=== PATIENT | female | born 1935 | race Caucasian/White ===

== ENCOUNTER → 2016-04-13 | Outpatient (CLI) | payer OTHER ==
[~2016-04-13] MED LIST: ADVIN25/60 INH; ADVIN25050 INH; ALBUAER2 INH; ALLO100T PO; ASPCH81 PO; ASPI-435 PO; BENZ100C18 PO; CALC0.2510 PO; CALC500C70 PO; DOCU100C31 PO; DOXY-300 PO; FRS/40 PO; IPRASOL4 INH; LEVO88TA PO; LSX80 PO; METO25TA56 PO; NTRGSL/4 UT; NYSS/ MT; ONDA4TAB10 SL; PANT40TA PO; POTA20TA16 PO; PRD20 PO; PRED10TA PO; SENN-65 PO; SPIR25TA PO; SPIR25TA89 PO; TRAM-10 PO; VNTHFA/IN INH; WARF-283 PO; WARF-286 PO; WARF4TAB PO
[2016-04-13 12:56] LABS: PROTHROMBIN TIME (PATIENT) 42.4 SECONDS (9.0-12.0)
[2016-04-13 12:59] LABS: INR 3.8 (0.9-1.1)
== END | disposition home or self-care (01) ==
LOC: C.LABOAKS 12:26
PROVIDERS: ATTEND Internal Medicine Critical Care Medicine
DX: I48.2 Chronic atrial fibrillation (principal); Z51.81 Encounter for therapeutic drug level monitoring; Z79.01 Long term (current) use of anticoagulants

== ENCOUNTER → 2016-04-27 | Outpatient (CLI) | payer OTHER ==
[2016-04-27 12:35] LABS: PROTHROMBIN TIME (PATIENT) 58.4 SECONDS (9.0-12.0)
[2016-04-27 12:37] LABS: INR 5.1 (0.9-1.1)
== END | disposition home or self-care (01) ==
LOC: C.LABOAKS 11:05
PROVIDERS: ATTEND Internal Medicine Critical Care Medicine
DX: I48.2 Chronic atrial fibrillation (principal); Z51.81 Encounter for therapeutic drug level monitoring; Z79.01 Long term (current) use of anticoagulants

== ENCOUNTER → 2016-05-11 | Outpatient (CLI) | payer OTHER ==
[2016-05-11 12:47] LABS: INR 3.5 (0.9-1.1); PROTHROMBIN TIME (PATIENT) 39.5 SECONDS (9.0-12.0)
== END | disposition home or self-care (01) ==
LOC: C.LABOAKS 14:04
PROVIDERS: ATTEND Internal Medicine Critical Care Medicine
DX: I48.2 Chronic atrial fibrillation (principal); Z51.81 Encounter for therapeutic drug level monitoring; Z79.01 Long term (current) use of anticoagulants

== ENCOUNTER → 2016-05-18 | Outpatient (CLI) | payer OTHER ==
[2016-05-18 12:35] LABS: BLOOD UREA NITROGEN 36 mg/dl (7-18); BUN/CREATININE RATIO 24.2 (10-20); CARBON DIOXIDE 31 mmol/L (21-32); CHLORIDE 102 mmol/L (98-107); GLUCOSE 91 mg/dl (70-99); SODIUM 143 mmol/L (136-145)
== END | disposition home or self-care (01) ==
LOC: C.LABOAKS 11:52
PROVIDERS: ATTEND Specialist
DX: N18.3 Chronic kidney disease, stage 3 (moderate) (principal); I51.9 Heart disease, unspecified; I50.9 Heart failure, unspecified

== ENCOUNTER → 2016-05-22 | Outpatient (CLI) | payer OTHER ==
[2016-05-22 12:40] LABS: INFLUENZA A PCR Neg for Influ A (NEG); INFLUENZA B PCR Neg for Influ B (NEG)
== END | disposition home or self-care (01) ==
LOC: C.LAB 07:45
PROVIDERS: ATTEND Family Medicine
DX: R50.9 Fever, unspecified (principal); R52 Pain, unspecified

== ENCOUNTER → 2016-05-25 | Outpatient (CLI) | payer OTHER ==
[2016-05-25 09:10] LABS: INR 2.9 (0.9-1.1); PROTHROMBIN TIME (PATIENT) 32.2 SECONDS (9.0-12.0)
== END | disposition home or self-care (01) ==
LOC: C.LABOAKS 08:52
PROVIDERS: ATTEND Internal Medicine Critical Care Medicine
DX: I48.2 Chronic atrial fibrillation (principal); Z51.81 Encounter for therapeutic drug level monitoring; Z79.01 Long term (current) use of anticoagulants

== ENCOUNTER → 2016-06-08 | Outpatient (CLI) | payer OTHER ==
[2016-06-08 12:30] LABS: INR 1.9 (0.9-1.1); PROTHROMBIN TIME (PATIENT) 20.6 SECONDS (9.0-12.0)
== END | disposition home or self-care (01) ==
LOC: C.LABOAKS 15:17
PROVIDERS: ATTEND Specialist
DX: I48.91 Unspecified atrial fibrillation (principal)

== ENCOUNTER → 2016-06-24 | Outpatient (CLI) | payer OTHER ==
[2016-06-24 13:38] LABS: BLOOD UREA NITROGEN 32 mg/dl (7-18); BUN/CREATININE RATIO 19.8 (10-20); CALCIUM 8.8 mg/dl (8.5-10.1); CARBON DIOXIDE 32 mmol/L (21-32); CHLORIDE 104 mmol/L (98-107); GLUCOSE 90 mg/dl (70-99); POTASSIUM 3.9 mmol/L (3.5-5.1); SODIUM 143 mmol/L (136-145)
[2016-06-24 13:47] LABS: PROTHROMBIN TIME (PATIENT) 43.5 SECONDS (9.0-12.0)
[2016-06-24 13:49] LABS: INR 3.8 (0.9-1.1)
== END | disposition home or self-care (01) ==
LOC: C.LABOAKS 08:45
PROVIDERS: ATTEND Physician Assistant
DX: I50.9 Heart failure, unspecified (principal)

== ENCOUNTER → 2016-07-06 | Outpatient (CLI) | payer OTHER ==
[2016-07-06 12:36] LABS: INR 3.4 (0.9-1.1); PROTHROMBIN TIME (PATIENT) 38.3 SECONDS (9.0-12.0)
--- NOTE | 2016-07-07 12:12 | CODING QUERY NO DIAGNOSIS ---
TREATMENT RENDERED WITHOUT A DIAGNOSIS 33 To promote full compliance with coding requirements relating to patient care, physician participation is requested in all cases of institutional asset manager uncertainty. Please assist us with providing a diagnosis/symptom for the test(s) below: A diagnosis/symptom was not documented on your Order. A valid diagnosis/symptom is required to bill all insurances. Please remember that we are unable to code a diagnosis of rule out, probable, possible, questionable, or suspected. DOS 07/06/16 Tests that require a diagnosis: * PT/INR DIAGNOSIS: Dr. Fernando, I did receive your letter back with your response, it was a PT/INR, can you add a diagnosis Thank you Provider Signature: Date: Thank you Zeina Cowart [facility] Information Management Once completed, please kindly fax back to [phone] For questions please call [phone]
== END ==
LOC: C.LABOAKS 15:18
PROVIDERS: ATTEND Family Medicine
DX: I48.91 Unspecified atrial fibrillation (principal)

== ENCOUNTER 2016-07-08 12:53 | Inpatient (IN) | payer OTHER ==
[~2016-07-08] VITALS: Ht 165.1 cm; Wt 83.6 kg
[~2016-07-08 12:53] MED LIST changes: -ADVIN25/60 INH; -ALLO100T PO; -ASPI-435 PO; -BENZ100C18 PO; -CALC0.2510 PO; -CALC500C70 PO; -DOCU100C31 PO; -DOXY-300 PO; -IPRASOL4 INH; -LEVO88TA PO; -LSX80 PO; -METO25TA56 PO; -NTRGSL/4 UT; -PANT40TA PO; -POTA20TA16 PO; -PRD20 PO; -PRED10TA PO; -SENN-65 PO; -SPIR25TA PO; -SPIR25TA89 PO; -TRAM-10 PO; -VNTHFA/IN INH; -WARF-283 PO; -WARF-286 PO
--- NOTE | 2016-07-08 13:47 | DIAGNOSTIC IMAGING REPORT ---
CHEST ONE VIEW PORTABLE CLINICAL HISTORY: EVALUATE RESPIRATORY DISTRESS.DYSPNEA COMPARISON STUDY: 02/10/2016 FINDINGS: The heart is mildly enlarged. There is a left subclavian dual-chamber central venous pacemaker present. There is no failure. There is no lobar consolidation. There is mild chronic basilar interstitial thickening.[ IMPRESSION: No active disease in the chest. Electronically signed by: Joshua Devi M.D. 07/08/2016 1:45 PM Dictated Date/Time: 07/08/2016 1:45 PM
[2016-07-08 14:03] LABS: BASO % 0.5 %; BASO ABS # 0.03 K/uL (0-0.2); COMPLETE YES; EOS % 3.5 %; HEMATOCRIT 41.6 % (37-47); IG% 0.3 %; LYMPH % 16.6 %; MEAN CORPUSCULAR HEMOGLOBIN 26.9 pg (25-34); MEAN PLATELET VOLUME 10.1 fL (7.4-10.4); NEUT % 70.1 %; PLATELET COUNT 215 K/uL (130-400); RED BLOOD COUNT 4.95 M/uL (4.2-5.4); WHITE BLOOD COUNT 6.63 K/uL (4.8-10.8)
[2016-07-08 14:10] LABS: POINT OF CARE TROPONIN I 0.01 ng/ml (0-0.045)
[2016-07-08 14:33] LABS: BUN/CREATININE RATIO 19.7 (10-20); CALCIUM 9.9 mg/dl (8.5-10.1); CREATININE 1.5 mg/dl (0.60-1.20); POTASSIUM 3.7 mmol/L (3.5-5.1)
[2016-07-08 14:37] LABS: ALB/GLOB RATIO 1.1 (0.9-2); CKMB/CK RATIO 2.3 (0-3.0)
[2016-07-08 14:56] LABS: URINE APPEARANCE CLEAR (CLEAR); URINE BILIRUBIN NEG (NEG); URINE COLOR YELLOW; URINE NITRITE NEG (NEG); URINE PH 7.5 (4.5-7.5); URINE SPECIFIC GRAVITY 1.007 (1.000-1.030); UROBILINOGEN NEG (NEG)
[2016-07-08 14:59] LABS: MANUAL MICROSCOPIC REQUIRED? NO; REVIEW REQ? NO
[2016-07-08 15:02] LABS: INR 2.3 (0.9-1.1); PARTIAL THROMBOPLASTIN RATIO 1.3; PROTHROMBIN TIME (PATIENT) 25.9 SECONDS (9.0-12.0)
[2016-07-08] MEDS ORDERED: ACETAMINOPHEN 325 MG TAB PO PRN (15:30)
[2016-07-08] MEDS ORDERED: ONDANSETRON INJ 2 MG/ML 2 ML VIAL IV PRN (15:30)
[2016-07-08] MEDS ORDERED: NITROGLYCERIN 0.4 MG SL PER TAB CHARGE SL PRN (15:30)
[2016-07-08] MEDS ORDERED: METHYLPREDNISOLONE IV 125 MG in SYRINGE 0 ML IV ONE (15:30)
[2016-07-08] MEDS ORDERED: ALBUT/IPRATROP 3MG/0.5MG NEB 3 ML VIAL ONE (15:36)
[2016-07-08] MEDS ORDERED: METHYLPREDNISOLONE 125 MG VIAL ONE (15:36)
[2016-07-08] MEDS ORDERED: SPIR25TA PO (15:53)
--- NOTE | 2016-07-08 15:55 | EMERGENCY ROOM VISIT NOTE ---
History Report prepared by Rufina: Joann Sabillon Under the Supervision of: Dr. Steven Stearns M.D. First contact with patient: 13:25 Chief Complaint: SHORTNESS OF BREATH Stated Complaint: CHEST PAIN Nursing Triage Summary: Triage Note: Pt reports shortness of breath since this am. pt reports hx of copd. pt denies any pain at this time. History of Present Illness The patient is an 81 year old female who presents to the Emergency Room with complaints of persistent shortness of breath that began prior to arrival. She additionally notes that with her shortness of breath she developed chest pain. The patient states that now she is feeling fatigued and weak. She states that her episode lasted a half hour. The patient states that she tried walking outside to get air, but denies any relief of her symptoms. She states that she wears oxygen all the time. The patient notes a recent cough and increased leg edema. She states that she has used her nebulizers at home. The patient states that she had nausea and vomiting yesterday. Pt denies LOC, headache, fevers, chills, diaphoresis, visual changes, neck pain, abdominal pain, back pain, melena, hematochezia, urinary symptoms, numbness, weakness, lymphadenopathy, rash, or other complaints. Source of History: patient Onset: prior to arrival Position: other (global) Quality: other (shortness of breath) Timing: other (persistent) Associated Symptoms: + chest pain, + cough, + nausea, + vomiting Note: Associated Symptoms: leg edema Review of Systems See HPI for pertinent positives and negatives. A total of ten systems were reviewed and were otherwise negative. Past Medical & Surgical Medical Problems: (1) Chest pain (2) Chronic a-fib (3) Chronic osteoarthritis (4) CKD (chronic kidney disease) stage 3, GFR 30-59 ml/min (5) Dyslipidemia (6) GERD (gastroesophageal reflux disease) (7) Heart failure (8) HTN (hypertension) (9) Hypothyroidism (10) Moderate COPD (chronic obstructive pulmonary disease) (11) Shortness of breath Surgical Problems: (1) History of appendectomy (2) History of cholecystectomy (3) History of hysterectomy (4) History of lumbar laminectomy for spinal cord decompression (5) History of tonsillectomy (6) History of total right hip arthroplasty (7) S/P placement of cardiac pacemaker Family History No pertinent family history Social History Smoking Status: Former Smoker Alcohol Use: none Drug Use: none Marital Status: Housing Status: lives alone Occupation Status: retired Current/Historical Medications Scheduled Allopurinol (Zyloprim), 50 MG PO DAILY Aspirin (Aspirin 81), 1 TAB PO DAILY Calcitriol (Rocaltrol Cap), 0.25 MCG PO DAILY Calcium/Vitamin D (Os-Tesfaye 500 Plus D), 1 TAB PO DAILY Docusate Sodium (Docusate Sodium), 1 CAP PO BID Fluticasone Prop/Salmeterol (Advair Diskus 250-50 Mcg/Dose), 1 PUFF INH BID Furosemide (Furosemide), 1 TAB PO BID Ipratropium-Albuterol (Duoneb), 1 TREATMENT INH QID Levothyroxine Sodium (Synthroid), 88 MCG PO DAILY Metoprolol Tartrate (Lopressor) (Lopressor), 12.5 MG PO BID Nitroglycerin (Nitrostat), 0.4 MG UT PRN Pantoprazole (Protonix), 40 MG PO DAILY Potassium Ext Rel (Klor-Con), 20 MEQ PO DAILY Spironolactone (Aldactone), 12.5 MG PO DAILY Warfarin Sodium (Warfarin Sodium), 1 TAB PO MWF Warfarin Sodium (Warfarin Sodium), 6 MG PO 4XWK Scheduled PRN Albuterol Hfa (Ventolin Hfa), 2 PUFFS INH Q4 PRN for SOB/Wheezing Benzonatate (Tessalon Perles), 100 MG PO TID PRN for Cough Senna/Docusate Sod (Senokot S), 1 TAB PO DAILY PRN for Constipation Tramadol (Ultram), 50 MG PO Q6 PRN for Pain Allergies Coded Allergies: Oxycodone (Verified Adverse Reaction, Intermediate, ALTERED MENTAL STATUS , N/V, 07/17/15) Alcohol (Verified Adverse Reaction, Mild, PASSES OUT WITH A SIP, 07/17/15) Codeine (Verified Adverse Reaction, Mild, N/V - RECEIVED MORPHINE ON PRIOR ADMIT W/O RXN, 07/17/15) PER PT: PASSED OUT AFTER CODEINE 30YRS AGO. Physical Exam Vital Signs Date Time Temp Pulse Resp B/P Pulse Ox O2 Delivery O2 Flow Rate FiO2 07/08/16 14:13 74 21 142/70 100 Nasal Cannula 3.0 07/08/16 14:13 100 Nasal Cannula 3.0 07/08/16 14:13 100 Nasal Cannula 3.0 07/08/16 13:34 74 07/08/16 12:56 36.4 79 20 174/97 95 Nasal Cannula 3.0 Physical Exam GENERAL: Awake, alert, well-appearing, in no distress HENT: Normocephalic, atraumatic. Oropharynx unremarkable. EYES: Normal conjunctiva. Sclera non-icteric. NECK: Supple. No nuchal rigidity. FROM. No JVD. RESPIRATORY: Clear to auscultation. CARDIAC: Regular rate, normal rhythm. Extremities warm and well perfused. Pulses equal. ABDOMEN: Soft, non-distended. No tenderness to palpation. No rebound or guarding. No masses. RECTAL: Deferred. MUSCULOSKELETAL: Chest examination reveals no tenderness. The back is symmetrical on inspection without obvious abnormality. There is no CVA tenderness to palpation. No joint edema. LOWER EXTREMITIES: Chronic venous discoloration, 2+ pitting edema. Calves are equal size bilaterally and non-tender. NEURO: Normal sensorium. No sensory or motor deficits noted. SKIN: No rash or jaundice noted. Medical Decision & Procedures ER Provider Diagnostic Interpretation: X-ray: Per my interpretation, radiologist review. CHEST ONE VIEW PORTABLE CLINICAL HISTORY: EVALUATE RESPIRATORY DISTRESS.DYSPNEA COMPARISON STUDY: 02/10/2016 FINDINGS: The heart is mildly enlarged. There is a left subclavian dual-chamber central venous pacemaker present. There is no failure. There is no lobar consolidation. There is mild chronic basilar interstitial thickening.[ IMPRESSION: No active disease in the chest. Electronically signed by: Joshua Devi M.D. 07/08/2016 1:45 PM Dictated Date/Time: 07/08/2016 1:45 PM Laboratory Results 07/08/16 13:50 Red Blood Count 4.95, Mean Corpuscular Volume 84.0, Mean Corpuscular Hemoglobin 26.9, Mean Corpuscular Hemoglobin Concent 32.0, Mean Platelet Volume 10.1, Neutrophils (%) (Auto) 70.1, Lymphocytes (%) (Auto) 16.6, Monocytes (%) (Auto) 9.0, Eosinophils (%) (Auto) 3.5, Basophils (%) (Auto) 0.5, Neutrophils # (Auto) 4.65, Lymphocytes # (Auto) 1.10, Monocytes # (Auto) 0.60, Eosinophils # (Auto) 0.23, Basophils # (Auto) 0.03 07/08/16 13:50 Test 07/08/16 13:50 07/08/16 14:20 White Blood Count 6.63 K/uL (4.8-10.8) Red Blood Count 4.95 M/uL (4.2-5.4) Hemoglobin 13.3 g/dL (12.0-16.0) Hematocrit 41.6 % (37-47) Mean Corpuscular Volume 84.0 fL (80-100) Mean Corpuscular Hemoglobin 26.9 pg (25-34) Mean Corpuscular Hemoglobin Concent 32.0 g/dl (32-36) Platelet Count 215 K/uL (130-400) Mean Platelet Volume 10.1 fL (7.4-10.4) Neutrophils (%) (Auto) 70.1 % Lymphocytes (%) (Auto) 16.6 % Monocytes (%) (Auto) 9.0 % Eosinophils (%) (Auto) 3.5 % Basophils (%) (Auto) 0.5 % Neutrophils # (Auto) 4.65 K/uL (1.4-6.5) Lymphocytes # (Auto) 1.10 K/uL (1.2-3.4) Monocytes # (Auto) 0.60 K/uL (0.11-0.59) Eosinophils # (Auto) 0.23 K/uL (0-0.5) Basophils # (Auto) 0.03 K/uL (0-0.2) RDW Standard Deviation 47.1 fL (36.4-46.3) RDW Coefficient of Variation 15.4 % (11.5-14.5) Immature Granulocyte % (Auto) 0.3 % Immature Granulocyte # (Auto) 0.02 K/uL (0.00-0.02) Prothrombin Time 25.9 SECONDS (9.0-12.0) Prothromb Time International Ratio 2.3 (0.9-1.1) Activated Partial Thromboplast Time 34.5 SECONDS (21.0-31.0) Partial Thromboplastin Ratio 1.3 Anion Gap 7.0 mmol/L (3-11) Est Creatinine Clear Calc Drug Dose 30.3 ml/min Estimated GFR () 37.0 Estimated GFR (Non- 31.9 BUN/Creatinine Ratio 19.7 (10-20) Calcium Level 9.9 mg/dl (8.5-10.1) Total Bilirubin 0.7 mg/dl (0.2-1) Aspartate Amino Transf (AST/SGOT) 16 U/L (15-37) Alanine Aminotransferase (ALT/SGPT) 17 U/L (12-78) Alkaline Phosphatase 82 U/L (45-117) Total Creatine Kinase 71 U/L (26-192) Creatine Kinase MB 1.6 ng/ml (0.5-3.6) Creatine Kinase MB Ratio 2.3 (0-3.0) Bedside Troponin I 0.010 ng/ml (0-0.045) NM-Xjp-I-Type Natriuretic Peptide 1156 pg/ml (0-1800) Total Protein 7.0 gm/dl (6.4-8.2) Albumin 3.6 gm/dl (3.4-5.0) Globulin 3.4 gm/dl (2.5-4.0) Albumin/Globulin Ratio 1.1 (0.9-2) Urine Color YELLOW Urine Appearance CLEAR (CLEAR) Urine pH 7.5 (4.5-7.5) Urine Specific [place] 1.007 (1.000-1.030) Urine Protein NEG (NEG) Urine Glucose (UA) NEG (NEG) Urine Ketones NEG (NEG) Urine Occult Blood NEG (NEG) Urine Nitrite NEG (NEG) Urine Bilirubin NEG (NEG) Urine Urobilinogen NEG (NEG) Urine Leukocyte Esterase NEG (NEG) Laboratory results reviewed by me Medications Administered Medications (Trade) Dose Ordered Sig/Terence Route Start Time Stop Time Status Last Admin Dose Admin Methylprednisolone Sodium Succinate (Solu-Medrol IV) 125 mg STK-MED ONCE .ROUTE 07/08/16 15:36 07/08/16 15:37 DC 07/08/16 15:44 125 MG Albuterol/ Ipratropium (Duoneb) 3 ml STK-MED ONCE .ROUTE 07/08/16 15:36 07/08/16 15:37 DC 07/08/16 15:43 3 ML ECG Indication: SOB/dyspnea Rate (beats per minute): 74 Rhythm: other (paced rhythm) Findings: no acute ischemic change, no ectopy ED Course 1330: The patient was evaluated in room B9. A complete history and physical exam was performed. 1439: I reevaluated the patient and she is resting comfortably. I discussed the exam findings with her and I discussed the treatment plan. She verbalized complete understanding and agreement. She will be evaluated for further treatment. 1447: I discussed the patients case with Pj Chacon. She is going to evaluate the patient for further treatment. Medical Decision Triage Nursing notes reviewed. The patient's presentation and history were concerning for chest pain and shortness of breath. Etiologies such as cardiac ischemia, aortic dissection, pulmonary embolism, pneumonia, pneumothorax, musculoskeletal, infections, gastrointestinal, as well as others were entertained. The patient was evaluated. She was asymptomatic. She had a concerning episode of chest pain as well as associated shortness of breath. There was some concerns for possible cardiac etiology. Her ECG, CBC, BMP, troponin, and other labs were unremarkable. The patient was reassessed and was doing well. Given her symptoms consultation was made with internal medicine. The patient was evaluated in the Emergency Room for further treatment and cardiac workup. The chart was completed utilizing [employer] Speech voice recognition software. Grammatical errors, random word insertions, pronoun errors, and incomplete sentences are an occasional consequence of this system due to software limitations, ambient noise, and hardware issues. Any formal questions or concerns about the content, text, or information contained within the body of this dictation should be directly addressed to the physician for clarification. Consults Time Called: 1446 Consulting Physician: Pj Chacon Returned Call: 1446 I discussed the patients case with Pj Chacon. She is going to evaluate the patient for further treatment. Impression Primary Impression: Substernal chest pain Additional Impression: Shortness of breath Scribe Attestation The scribe's documentation has been prepared under my direction and personally reviewed by me in its entirety. I confirm that the note above accurately reflects all work, treatment, procedures, and medical decision making performed by me. Departure Information Dispostion Being Evaluated By Hospitalist Referrals Wade Brock (PCP) Problem Qualifiers
[2016-07-08] MEDS ORDERED: WARFARIN SOD 6 MG TAB PO SCH (16:00)
[2016-07-08] MEDS ORDERED: BENZONATATE 100MG CAP PO PRN (16:00)
[2016-07-08] MEDS ORDERED: TRAMADOL HCL 50 MG TAB PO PRN (16:00)
[2016-07-08] MEDS ORDERED: DOCUSATE SODIUM/SENNA 50/8.6MG TAB PO PRN (16:00)
--- NOTE | 2016-07-08 16:25 | History and Physical ---
History & Physical Date & Time of Service: Jul 08, 2016 at 16:03 Chief Complaint: Shortness of Breath, Chest Pain Primary Care Physician: Dr. Fernando History of Present Illness 81 year old female who presents to the ER with shortness of breath and chest pain. Patient resides at [facility]. She reports she developed shortness of breath this morning with associated left sided chest discomfort. Patient reports symptoms started to resolve on their own when she arrived to the ER. She reports the shortness of breath is improved. She still has left sided chest discomfort however it is improved as well. Patient is somewhat of a poor historian and it is difficult to elicit details about the chest pain. Seems like it has been constant since the shortness of breath started. No specific causative or alleviating factors. Patient reports she has been coughing for the past two days which has been productive for a yellow sputum. She noted herself to be wheezing today. She reports increasing leg edema over the past few days. Reports her legs get red when they swell. She denies lightheadedness, dizziness , diaphoresis, or syncopal events. She repots having nausea and vomiting a couple of days ago which has resolved. No diarrhea. She denies urinary symptoms. No fever or chills. In the ER, patient is saturating well on her chronic 3L oxygen. Initial troponin is negative, EKG demonstrates paced rhythm. CXR is clear. Vitals are stable. Labs are unremarkable. Past Medical/Surgical History Medical Problems: (1) Chronic a-fib Status: Chronic (2) Chronic osteoarthritis Status: Chronic (3) CKD (chronic kidney disease) stage 3, GFR 30-59 ml/min Status: Chronic (4) Diastolic CHF Status: Chronic (5) Dyslipidemia Status: Chronic (6) GERD (gastroesophageal reflux disease) Status: Chronic (7) HTN (hypertension) Status: Chronic (8) Hypothyroidism Status: Chronic (9) Moderate COPD (chronic obstructive pulmonary disease) Status: Chronic (10) Tachy-chad syndrome Status: Chronic Surgical Problems: (1) History of appendectomy Status: Resolved (2) History of cholecystectomy Status: Resolved (3) History of hysterectomy Status: Resolved (4) History of knee replacement Permanent Comment: s/p revision for infection Status: Resolved (5) History of lumbar laminectomy for spinal cord decompression Status: Resolved (6) History of tonsillectomy Status: Resolved (7) History of total right hip arthroplasty Permanent Comment: 2001 Status: Resolved (8) History of tubal ligation Status: Resolved (9) S/P placement of cardiac pacemaker Status: Resolved (10) S/P tonsillectomy and adenoidectomy Status: Resolved Family History non contributory due to patient's advanced age Social History Smoking Status: Former Smoker Alcohol Use: none Housing status: assisted living Immunizations History of Influenza Vaccine: Yes Influenza Vaccine Date: Feb 10, 2016 History of Tetanus Vaccine?: Yes Tetanus Immunization Date: Dec 05, 2007 History of Pneumococcal: Yes Pneumococcal Date: Oct 17, 2014 Multi-Drug Resistant Organisms History of MDRO: No Allergies Coded Allergies: Oxycodone (Verified Adverse Reaction, Intermediate, ALTERED MENTAL STATUS , N/V, 07/17/15) Alcohol (Verified Adverse Reaction, Mild, PASSES OUT WITH A SIP, 07/17/15) Codeine (Verified Adverse Reaction, Mild, N/V - RECEIVED MORPHINE ON PRIOR ADMIT W/O RXN, 07/17/15) PER PT: PASSED OUT AFTER CODEINE 30YRS AGO. Home Medications Scheduled Allopurinol (Zyloprim), 50 MG PO DAILY Aspirin (Aspirin 81), 1 TAB PO DAILY Calcitriol (Rocaltrol Cap), 0.25 MCG PO DAILY Calcium/Vitamin D (Os-Tesfaye 500 Plus D), 1 TAB PO DAILY Docusate Sodium (Docusate Sodium), 1 CAP PO BID Fluticasone Prop/Salmeterol (Advair Diskus 250-50 Mcg/Dose), 1 PUFF INH BID Furosemide (Furosemide), 1 TAB PO BID Ipratropium-Albuterol (Duoneb), 1 TREATMENT INH QID Levothyroxine Sodium (Synthroid), 88 MCG PO DAILY Metoprolol Tartrate (Lopressor) (Lopressor), 12.5 MG PO BID Nitroglycerin (Nitrostat), 0.4 MG UT PRN Pantoprazole (Protonix), 40 MG PO DAILY Potassium Ext Rel (Klor-Con), 20 MEQ PO DAILY Spironolactone (Aldactone), 12.5 MG PO DAILY Warfarin Sodium (Warfarin Sodium), 1 TAB PO MWF Warfarin Sodium (Warfarin Sodium), 6 MG PO 4XWK Scheduled PRN Albuterol Hfa (Ventolin Hfa), 2 PUFFS INH Q4 PRN for SOB/Wheezing Benzonatate (Tessalon Perles), 100 MG PO TID PRN for Cough Senna/Docusate Sod (Senokot S), 1 TAB PO DAILY PRN for Constipation Tramadol (Ultram), 50 MG PO Q6 PRN for Pain Review of Systems 10 point review of systems was completed with the pertinent positives and negatives noted per the HPI Physical Exam Vital Signs Date Time Temp Pulse Resp B/P Pulse Ox O2 Delivery O2 Flow Rate FiO2 07/08/16 14:13 74 21 142/70 100 Nasal Cannula 3.0 07/08/16 14:13 100 Nasal Cannula 3.0 07/08/16 14:13 100 Nasal Cannula 3.0 07/08/16 13:34 74 07/08/16 12:56 36.4 79 20 174/97 95 Nasal Cannula 3.0 General Appearance: no apparent distress Head: normocephalic Eyes: normal inspection ENT: hearing grossly normal Neck: supple, no JVD Respiratory/Chest: no respiratory distress, + decreased breath sounds (poor air entry noted BL), + pertinent finding (audible expiratory wheezing; left chest wall tenderness) Cardiovascular: regular rate, rhythm, + pertinent finding (+1 pitting edema BLLE) Abdomen/GI: normal bowel sounds, non tender, soft Extremities/Musculoskelatal: normal inspection, no calf tenderness Neurologic/Psych: no motor/sensory deficits, alert, normal mood/affect, oriented x 3 Skin: warm/dry, + pertinent finding (BLLE with chronic venous changes/erythema) Diagnostics Laboratory Results Results Past 24 Hours Test 07/08/16 13:50 07/08/16 14:20 Range/Units White Blood Count 6.63 4.8-10.8 K/uL Red Blood Count 4.95 4.2-5.4 M/uL Hemoglobin 13.3 12.0-16.0 g/dL Hematocrit 41.6 37-47 % Mean Corpuscular Volume 84.0 80-100 fL Mean Corpuscular Hemoglobin 26.9 25-34 pg Mean Corpuscular Hemoglobin Concent 32.0 32-36 g/dl Platelet Count 215 130-400 K/uL Mean Platelet Volume 10.1 7.4-10.4 fL Neutrophils (%) (Auto) 70.1 % Lymphocytes (%) (Auto) 16.6 % Monocytes (%) (Auto) 9.0 % Eosinophils (%) (Auto) 3.5 % Basophils (%) (Auto) 0.5 % Neutrophils # (Auto) 4.65 1.4-6.5 K/uL Lymphocytes # (Auto) 1.10 1.2-3.4 K/uL Monocytes # (Auto) 0.60 0.11-0.59 K/uL Eosinophils # (Auto) 0.23 0-0.5 K/uL Basophils # (Auto) 0.03 0-0.2 K/uL RDW Standard Deviation 47.1 36.4-46.3 fL RDW Coefficient of Variation 15.4 11.5-14.5 % Immature Granulocyte % (Auto) 0.3 % Immature Granulocyte # (Auto) 0.02 0.00-0.02 K/uL Prothrombin Time 25.9 9.0-12.0 SECONDS Prothromb Time International Ratio 2.3 0.9-1.1 Activated Partial Thromboplast Time 34.5 21.0-31.0 SECONDS Partial Thromboplastin Ratio 1.3 Sodium Level 141 136-145 mmol/L Potassium Level 3.7 3.5-5.1 mmol/L Chloride Level 100 98-107 mmol/L Carbon Dioxide Level 34 21-32 mmol/L Anion Gap 7.0 3-11 mmol/L Blood Urea Nitrogen 30 7-18 mg/dl Creatinine 1.50 0.60-1.20 mg/dl Est Creatinine Clear Calc Drug Dose 30.3 ml/min Estimated GFR () 37.0 Estimated GFR (Non- 31.9 BUN/Creatinine Ratio 19.7 10-20 Random Glucose 92 70-99 mg/dl Calcium Level 9.9 8.5-10.1 mg/dl Total Bilirubin 0.7 0.2-1 mg/dl Aspartate Amino Transf (AST/SGOT) 16 15-37 U/L Alanine Aminotransferase (ALT/SGPT) 17 12-78 U/L Alkaline Phosphatase 82 45-117 U/L Total Creatine Kinase 71 26-192 U/L Creatine Kinase MB 1.6 0.5-3.6 ng/ml Creatine Kinase MB Ratio 2.3 0-3.0 Bedside Troponin I 0.010 0-0.045 ng/ml [id number] Natriuretic Peptide 1156 0-1800 pg/ml Total Protein 7.0 6.4-8.2 gm/dl Albumin 3.6 3.4-5.0 gm/dl Globulin 3.4 2.5-4.0 gm/dl Albumin/Globulin Ratio 1.1 0.9-2 Urine Color YELLOW Urine Appearance CLEAR CLEAR Urine pH 7.5 4.5-7.5 Urine Specific [place] 1.007 1.000-1.030 Urine Protein NEG NEG Urine Glucose (UA) NEG NEG Urine Ketones NEG NEG Urine Occult Blood NEG NEG Urine Nitrite NEG NEG Urine Bilirubin NEG NEG Urine Urobilinogen NEG NEG Urine Leukocyte Esterase NEG NEG Microbiology Results 07/08/16 Blood Culture, Received Pending 07/08/16 Blood Culture, Received Pending Diagnostic Radiology CXR IMPRESSION: No active disease in the chest. Impression Assessment and Plan CHEST PAIN, SHORTNESS OF BREATH: LIKELY MULTIFACTORIAL DUE TO: COPD EXACERBATION MILD ACUTE ON CHRONIC DIASTOLIC CHF - admit to tele - patient presenting with shortness of breath and left sided chest pain that began today, productive cough x 2 days, and increased leg edema - in the ER, patient is saturating well on her chronic 3L - initial troponin negative, EKG demonstrates paced rhythm; suspect chest pain is musculoskeletal in nature/due to COPD exacerbation - continue to cycle cardiac enzymes, check resting echo - will give Lasix 40mg IV x 1 today and continue home dose of Aldactone, will reassess volume status in AM and dose further diuresis accordingly - continue ASA and beta umesh - cardio consult, input appreciated - will start IV solumedrol, nebs, and empiric doxy; no infiltrate on CXR, afebrile, WBC normal AFIB, TACHY CHAD S/P PACEMAKER - paced on EKG - rate controlled on beta umesh, will continue - pacer interrogation - on Coumadin, INR 2.4; continue with home dosing CKD STAGE III - baseline creat runs in the mid 1's - creat noted to be 1.5 today - continue to monitor, avoid nephrotoxic agents when able HYPOTHYROIDISM - continue levothyroxine DVT PROPHYLAXIS - on Coumadin with therapeutic INR CODE STATUS - Patient is a full code as per my discussion with her. DISPO - In my clinical judgment this beneficiary meets acute admission criteria, established by [facility], that includes being hospitalized through two midnights. - PT/OT, expect d/c back to [facility] when medically stable VTE Prophylaxis VTE Risk Assessment Done? Y/N: Yes Risk Level: Moderate
[2016-07-08] MEDS ORDERED: FUROSEMIDE INJ 40 MG in SYRINGE 0 ML IV ONE (18:30)
[2016-07-08 18:32] VITALS: BP 133/68; PULSE 74; TEMP 36.6; O2SAT 97; Ht 165.1 cm; Wt 83.6 kg
[2016-07-08] MEDS: DOXYCYCLINE IV 100 MG in DEXTROSE 5% 100ML 100 ML IV SCH (18:54)
[2016-07-08 20:00] VITALS: BP 131/72; PULSE 64; TEMP 36.8; O2SAT 94
[2016-07-08] MEDS: DOCUSATE SODIUM 100 MG CAP PO SCH (20:41)
[2016-07-08 20:45] VITALS: BP 131/72; PULSE 64
[2016-07-08] MEDS: METOPROLOL TARTRATE 25 MG TAB PO SCH (20:47)
[2016-07-08] MEDS: FLUTICASONE/SALMETEROL 250/50 (ADVAIR) 14 PUFF/1 INHALER INH SCH (20:48)
[2016-07-08] MEDS: ALBUT/IPRATROP 3MG/0.5MG NEB 3 ML VIAL INH SCH (21:20)
[2016-07-08 21:21] VITALS: PULSE 83; O2SAT 95
--- NOTE | 2016-07-08 23:41 | Progress Note ---
Progress Note Date of Service Jul 08, 2016. Progress Note ATTENDING ADDENDUM care coordinated with JANIE Kent please refer to her notes for full details, I agree with her notes patient seen and examined, records reviewed by myself as well on exam, patient seen sitting up in bed, having a meal states she feels somewhat better since arrival denies active shortness of breath, chest pain has occasional productive cough no other symptoms VS noted and reviewed oriented x 3 , not in distress, speaks in sentences with no effort nor accessory muscle use normal rate, regular rhythm, no murmurs mild scattered expiratory wheezes, good air entry non distended, soft, nontender (+) grade 1-2 lower leg bilateral edema no neuro deficits crea 1.5 cxr: no acute infiltrates ASSESSMENT/PLAN> 81 year old female with COPD on chronic home oxygen 3 liters by [place], Chronic Diastolic CHF, A fib on coumadin presenting with chest pain and shortness of breath. ACUTE EXACERBATION OF COPD, ACUTE BRONCHITIS at baseline 3 liters [place] CXR no pneumonia -- Nebs, Solumedrol, Doxycycline MILD ACUTE ON CHRONIC DIASTOLIC CHF EXACERBATION -- Lasix 40mg IV titrate Lasix in AM CHEST PAIN R/O ACS -- cardiac markers, echo other diagnoses and plan of care as per JANIE Kent's notes Fermin Castro MD
[2016-07-09] VITALS (14 sets, daily range): BP systolic 97–145; BP diastolic 49–82; PULSE 70–109; TEMP 36.6–37.1; O2SAT 94–99
[2016-07-09] MEDS: DOXYCYCLINE IV 100 MG in DEXTROSE 5% 100ML 100 ML IV SCH ×2 (05:47→17:35)
[2016-07-09] MEDS: LEVOTHYROXINE 88 MCG TAB PO SCH (05:48)
[2016-07-09] MEDS: ALBUT/IPRATROP 3MG/0.5MG NEB 3 ML VIAL INH SCH ×3 (07:25→19:52)
[2016-07-09 07:54] LABS: HEMATOCRIT 38.2 % (37-47); MEAN CELL VOLUME 84.7 fL (80-100); MEAN CORPUSCULAR HEMOGLOBIN 28.2 pg (25-34); MEAN CORPUSCULAR HGB CONC 33.2 g/dl (32-36); MEAN PLATELET VOLUME 10.4 fL (7.4-10.4); PLATELET COUNT 194 K/uL (130-400); RED BLOOD COUNT 4.51 M/uL (4.2-5.4); WHITE BLOOD COUNT 7.22 K/uL (4.8-10.8)
[2016-07-09] MEDS: FLUTICASONE/SALMETEROL 250/50 (ADVAIR) 14 PUFF/1 INHALER INH SCH ×2 (08:19→20:30)
[2016-07-09] MEDS: SPIRONOLACTONE 25 MG TAB PO SCH (08:20)
[2016-07-09] MEDS: CALCIUM 600MG + VIT D 400 IU TAB PO SCH (08:21)
[2016-07-09 08:24] LABS: BUN/CREATININE RATIO 21.2 (10-20); CALCIUM 9.2 mg/dl (8.5-10.1); CREATININE 1.7 mg/dl (0.60-1.20)
[2016-07-09] MEDS: ALLOPURINOL 100 MG TAB PO SCH (08:24)
[2016-07-09] MEDS: CALCITRIOL 0.25 MCG CAP PO SCH (08:24)
[2016-07-09] MEDS: PANTOprazole SOD 40 MG TAB PO SCH (08:25)
[2016-07-09] MEDS: METOPROLOL TARTRATE 25 MG TAB PO SCH ×2 (08:26→20:33)
[2016-07-09] MEDS: ASPIRIN 81 MG ECTAB PO SCH (08:26)
[2016-07-09] MEDS: POTASSIUM CHLORIDE 20 MEQ TABCR PO SCH (08:26)
[2016-07-09] MEDS: DOCUSATE SODIUM 100 MG CAP PO SCH ×2 (08:27→20:32)
--- NOTE | 2016-07-09 09:10 | ECHOCARDIOGRAM REPORT ---
*NOTICE TO RECEIVING [employer] This information is strictly Confidential and protected under [place] law. [place] law prohibits you from making any further disclosure of this information unless further disclosure is expressly permitted by the written consent of the person to whom it pertains or is authorized by law. A general authorization for the release of medical or other information is not sufficient for this purpose. Hospital accepts no responsibility if the information is made available to any other person, INCLUDING THE PATIENT. Interpretation Summary * Name: GITA DARNELL Study Date: 07/09/2016 07:40 AM BP: 127/71 mmHg * Patient Location: [facility] HR: 79 * : 1935 (M/d/yyyy) Gender: Female Height: 65 in * Age: 81 yrs Ethnicity: [place] Weight: 184 lb * Ordering Physician: Carla Kent * Referring Physician: Wade Brock * Performed By: Juarez Lyn RCS * * Reason For Study: Chest Pain * BSA: 1.9 m2 * -- Conclusions -- * The LV wall motion was otherwise normal. * The qualitative LV ejection fraction=55% * There is moderate tricuspid regurgitation. * Mild pulmonary hypertension is present. * The PA systolic pressure is calculated to be 40 mm Hg. * There is mild mitral regurgitation. Procedure Details * A complete two-dimensional transthoracic echocardiogram was performed (2D, M-mode, Doppler and color flow Doppler). Left Ventricle * The left ventricle is normal in size. * There is normal left ventricular wall thickness. * Left ventricular systolic function is normal. * The qualitative LV ejection fraction=55% * Septal motion is consistent with conduction abnormality. * The LV wall motion was otherwise normal. Right Ventricle * The right ventricle is normal in size and function. Atria * The left atrium is moderately dilated. * The right atrium is moderately dilated. * There is a pacemaker lead in the right atrium. * There is no evidence of atrial septal defect, but resolution does not allow assessment for a patent foramen ovale. Mitral Valve * The mitral valve is normal. * There is no mitral valve stenosis. * There is mild mitral regurgitation. Tricuspid Valve * The tricuspid valve is normal. * There is no tricuspid stenosis. * There is moderate tricuspid regurgitation. * Mild pulmonary hypertension is present. The PA systolic pressure is calculated to be 40 mm Hg. Aortic Valve * The aortic valve is trileaflet. * Aortic valve sclerosis moderate, without significant aortic valvular stenosis. * Aortic stenosis is absent. * There is no significant aortic regurgitation. Pulmonic Valve * The pulmonary valve is not well seen, but the Doppler examination is normal without significant regurgitation or stenosis. Great Vessels * The aortic root and proximal ascending aorta are normal sized. Pericardium/Pleural * There is no pericardial effusion. Right Ventricle * There is a pacemaker lead visualized in the right ventricle. Great Vessels * Normal inferior vena cava diameter and respiratory variation suggests normal central venous pressure. MMode 2D Measurements and Calculations IVSd 0.99 cm IVSs 1.3 cm LVIDd 4.5 cm LVIDs 3.1 cm LVPWd 1.0 cm LVPWs 1.4 cm IVS/LVPW 0.95 FS 29.4 % EDV(Teich) 90.5 ml ESV(Teich) 39.4 ml EF(Teich) 56.4 % EDV(cubed) 88.7 ml ESV(cubed) 31.2 ml EF(cubed) 64.8 % % IVS thick 34.8 % % LVPW thick 31.6 % LV mass(C)d 155.0 grams LV mass(C)dI 81.2 grams/m\S\2 LV mass(C)s 142.3 grams LV mass(C)sI 74.5 grams/m\S\2 CO(Teich) 3.6 l/min CI(Teich) 1.9 l/min/m\S\2 SV(Teich) 51.1 ml SI(Teich) 26.8 ml/m\S\2 CO(cubed) 4.0 l/min CI(cubed) 2.1 l/min/m\S\2 SV(cubed) 57.4 ml SI(cubed) 30.1 ml/m\S\2 Ao root diam 4.2 cm Ao root area 13.6 cm\S\2 ACS 1.8 cm LA dimension 4.1 cm LA/Ao 0.98 LVAd ap4 25.4 cm\S\2 LVLd ap4 7.0 cm EDV(MOD-sp4) 75.0 ml LVAs ap4 13.2 cm\S\2 LVLs ap4 5.7 cm ESV(MOD-sp4) 27.0 ml EF(MOD-sp4) 64.0 % LVAd ap2 23.0 cm\S\2 LVLd ap2 7.1 cm EDV(MOD-sp2) 62.0 ml LVAs ap2 11.2 cm\S\2 LVLs ap2 5.7 cm ESV(MOD-sp2) 19.0 ml EF(MOD-sp2) 69.4 % CO(MOD-sp4) 3.4 l/min CI(MOD-sp4) 1.8 l/min/m\S\2 SV(MOD-sp4) 48.0 ml SI(MOD-sp4) 25.1 ml/m\S\2 CO(MOD-sp2) 3.0 l/min CI(MOD-sp2) 1.6 l/min/m\S\2 SV(MOD-sp2) 43.0 ml SI(MOD-sp2) 22.5 ml/m\S\2 Doppler Measurements and Calculations MV E max buzz 88.3 cm/sec MV P1/2t max buzz 89.3 cm/sec MV P1/2t 125.8 msec MVA(P1/2t) 1.7 cm\S\2 MV dec slope 207.9 cm/sec\S\2 MV dec time 0.31 sec Ao V2 max 139.9 cm/sec Ao max PG 7.8 mmHg Ao max PG (full) 5.4 mmHg LV V1 max PG 2.5 mmHg LV V1 max 78.4 cm/sec PA V2 max 126.0 cm/sec PA max PG 6.4 mmHg TR max buzz 279.5 cm/sec
--- NOTE | 2016-07-09 09:14 | Clinical Documentation Query ---
LINNEA Garcia : CLINICAL DOCUMENTATION QUERY Patient is an 81 year old female presenting for evaluation and treatment of SOB and chest pain. Noted in H&P is the continuous chronic utilization of supplemental oxygen at 3 L/min. As appropriate, consider documentation as suggested below in order to capture the severity of illness and risk of mortality associated with this condition. Thank you. In your clinical opinion is this patient being managed for: ( ) Chronic respiratory failure with hypoxia ( ) Other explanation of clinical findings (Please Explain) ( ) Unable to determine (Please Define) ( ) Need to Discuss ( ) Not Agree The medical record reflects the following clinical findings, treatment, and risk factors. Clinical Indicators: As above Treatment: Ongoing supplemental oxygen administration. Risk Factors: Age, COPD, chronic diastolic CHF Please clarify and document your clinical opinion in the progress notes and discharge summary. Terms such as "probable", "suspected", "likely", "questionable", "possible", or "still to be ruled out" are acceptable. IF IN AGREEMENT, YOU MUST DOCUMENT ABOVE DIAGNOSTIC STATEMENT IN DAILY PROGRESS NOTES AND DISCHARGE SUMMARY. This document is not part of the patient's record. Thank You, Maikel Cuba, RN [phone]
--- NOTE | 2016-07-09 15:36 | Cardiology Consultation ---
Cardiology Consultation Date of Consultation: Jul 09, 2016 History of Present Illness Ana Rosa Alvarez is an 81-year-old female seen in cardiology consultation per the request of JANIE Chacon for the evaluation of shortness of breath. The patient has a complex past cardiac history and had last been seen as an outpatient by Blu GUERRA of our practice on 06/15/16. She presented to the emergency room yesterday complaining of progressive shortness of breath over the last few days and her shortness of breath became acutely worse on the day of admission. She received furosemide 40 mg last night 1854 and notes interval improvement in her symptoms. She also received Solu-Medrol and doxycycline. There is concern for having chest discomfort, but when I interviewed her she denies any chest discomfort and she merely describes shortness of breath. Her cardiac enzymes have been negative 3. Her EKG reveals chronically paced ventricular rhythm and therefore isn't conclusive for the presence of underlying ischemia. Per her office chart she typically takes furosemide 80 mg daily in the morning and 60 mg in the afternoon. History PAST MEDICAL HISTORY: 1. 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 Status post AV mallory ablation by Dr. Dozier at [facility] in 2011 3. Chronic underlying atrial fibrillation 4. COPD 5. Chronic kidney insufficiency 6. Hypertension 7. Dyslipidemia 8. Hypothyroidism PAST SURGICAL HISTORY: 1. Lumbar laminectomy in 1985 2. Vaginal hysterectomy 1963 3. Cholecystectomy 1996 4. Left knee surgery in the early , treated by postoperative infection requiring revision with multiple subsequent procedures 5. Permanent pacemaker implantation FAMILY HISTORY: Per her outpatient record her father at age 76 with a cerebral hemorrhage. Other past with age 72 and had coronary artery disease. SOCIAL HISTORY: Prior cigarette smoker having quit in 1994 after having smoked one pack per day 40 years. Review Of Systems See above for pertinent positives & negatives. A total of 10 systems reviewed and were otherwise negative. Allergies Coded Allergies: Oxycodone (Verified Adverse Reaction, Intermediate, ALTERED MENTAL STATUS , N/V, 07/17/15) Alcohol (Verified Adverse Reaction, Mild, PASSES OUT WITH A SIP, 07/17/15) Codeine (Verified Adverse Reaction, Mild, N/V - RECEIVED MORPHINE ON PRIOR ADMIT W/O RXN, 07/17/15) PER PT: PASSED OUT AFTER CODEINE 30YRS AGO. Medications Reported Home Medications Medications Dose Route/Sig Max Daily Dose Days Date Category Dose Instructions Tessalon Perles (Benzonatate) 100 Mg Cap 100 Mg PO TID PRN 07/08/16 Reported Warfarin Sodium 6 Mg Tab 6 Mg PO [id number] 07/08/16 Reported TUESDAY, TUESDAY, TUESDAY AND TUESDAY Warfarin Sodium 4 Mg Tab 1 Tab PO MWF 90 07/08/16 Reported Zyloprim (Allopurinol) 100 Mg Tab 50 Mg PO DAILY 07/08/16 Reported Furosemide 80 Mg Tab 1 Tab PO BID 07/08/16 Reported Ventolin Hfa (Albuterol) 200 Puffs/42971 Mcg Aers 2 Puffs INH Q4 PRN 07/08/16 Reported Aspirin 81 (Aspirin) 81 Mg Tab 1 Tab PO DAILY 07/08/16 Reported Os-Tesfaye 500 Plus D (Calcium/Vitamin D) Tab 1 Tab PO DAILY 02/10/16 Reported Senokot S (Senna/Docusate Sodium) 1 Tab Tab 1 Tab PO DAILY PRN 02/10/16 Reported Nitrostat (Nitroglycerin) 0.4 Mg Tab 0.4 Mg UT PRN 02/10/16 Reported Ultram (Tramadol HCl) 50 Mg Tab 50 Mg PO Q6 PRN 02/10/16 Reported Duoneb (Ipratropium-Albuterol) 3 Ml Nebu 1 Treatment INH QID 02/10/16 Reported Docusate Sodium 100 Mg Cap 1 Cap PO BID 7 02/09/16 Reported Klor-Con (Potassium Chloride) 20 Meq Tabcr 20 Meq PO DAILY 02/09/16 Reported PUT IN YOGURT Protonix (Pantoprazole Sodium) 40 Mg Tab 40 Mg PO DAILY 02/09/16 Reported Advair Diskus 250-50 Mcg/Dose (Fluticasone Prop/Salmeterol) 14 Puff/1 Inhaler Aerp 1 Puff INH BID 30 07/28/15 Rx Lopressor (Metoprolol Tartrate) 25 Mg Tab 12.5 Mg PO BID 07/17/15 Reported Aldactone (Spironolactone) 25 Mg Tab 12.5 Mg PO DAILY 07/12/14 Reported Synthroid (Levothyroxine Sodium) 88 Mcg Tab 88 Mcg PO DAILY 07/12/14 Reported Rocaltrol Cap (Calcitriol) 0.25 Mcg Cap 0.25 Mcg PO DAILY 03/22/11 Reported Physical Exam Vital Signs (Last 8hrs): Last 8 Hrs Date Time Temp Pulse Resp B/P Pulse Ox O2 Delivery O2 Flow Rate FiO2 07/09/16 14:44 36.6 71 16 117/65 95 Nasal Cannula 4.0 07/09/16 14:20 77 18 97 Nasal Cannula 3.0 07/09/16 13:05 Nasal Cannula 3.0 07/09/16 11:22 36.8 70 18 104/49 97 Room Air 07/09/16 08:00 Nasal Cannula 3.5 General Appearance: Alert and Oriented x3. NAD. Head: Normocephalic Atraumatic. Eyes: PERRLA, EOMI, conjunctiva and sclera clear Neck: Supple. No carotid bruits noted. No JVD. No HJD. Respiratory: Breath sounds clear to auscultation bilaterally. No w/r/r. Cardiovascular: Reg rate and rhythm. S1 and S2 noted. No murmurs, rubs, gallops. PMI non displace. Abdomen: Normal bowel sounds, soft nontender. no abdominal bruits. Extremities: No edema, no clubbing or cyanosis. distal pulses 2/4 bilaterally. Neuro: No focal deficits. Psychiatric: Normal affect. Data Last Resulted 07/09/16 07:19 Last Resulted 07/09/16 07:19 Past 24 Hours Test 07/08/16 19:00 07/08/16 19:40 07/09/16 01:00 Range/Units Creatine Kinase MB Ratio 0-3.0 Creatine Kinase MB 0.9 0.9 0.5-3.6 ng/ml Troponin I < 0.015 < 0.015 0-0.045 ng/ml Echocardiogram performed today 07/09/16 are reviewed and telemetry by the undersigned: * -- Conclusions -- * The LV wall motion was otherwise normal. * The qualitative LV ejection fraction=55% * There is moderate tricuspid regurgitation. * Mild pulmonary hypertension is present. * The PA systolic pressure is calculated to be 40 mm Hg. * There is mild mitral regurgitation. Assessment & Plan Impression: 81-year-old female 1. Multifactorial shortness of breath due to acute on chronic diastolic heart failure, likely with superimposed COPD exacerbation, improved after one dose of IV diuretic therapy. 2. Chronic A. fib previous AV node ablation for which she is on Coumadin as a prior pacemaker Recommendations: The patient's office chart states that she has been taking furosemide 80 mg a.m. and 60 mg p.m. her medication reconciliation states that she is taking 80 mg twice a day. At this time, we'll convert her back to her oral furosemide dose of 80 mg twice a day and observe her. Continue Coumadin. I do not believe workup for ischemic heart disease is necessary at the present time.
--- NOTE | 2016-07-09 15:52 | Progress Note ---
Internal Med Progress Note Date of Service: Jul 09, 2016. Provider Documentation: SUBJECTIVE: Patient is seen and examined at bedside. She states SOB/wheezing is much improved. Has some productive cough. Denies any chest pain, dizziness. Family at bedside. Offers no other complaints. OBJECTIVE: Vital Signs-as noted below Physical Exam: General Appearance:Moderately built and nourished, no apparent distress Head: normocephalic, Atraumatic Eyes: normal inspection, EOMI, PERRLA Neck: supple, Trachea midline Respiratory/Chest: Decreases breath sounds, CTA, No accessory muscle use Cardiovascular: S1, S2, No murmur Abdomen/GI:Soft, Non tender, Bowel sounds present Extremities/Musculoskelatal:normal inspection, 1+ b/l edema Neurologic/Psych:AAOX3, grossly no focal neurological deficits Skin: normal color, warm Lab data as noted below. ASSESSMENT & PLAN: CHEST PAIN/SOB: MULTIFACTORIAL ACUTE ON CHRONIC COPD EXACERBATION ACUTE ON CHRONIC DIASTOLIC CHF Presented with SOB and left sided sharp chest pain, productive cough for 2 days, and increased leg edema Continue monitoring in Tele Troponin negative EKG: paced rhythm ECHO: normal LV function S/P IV lasix >>> PO lasix Appreciate cardiology input Continue Aldactone, ASA, BB Continue bronchodilators, empiric doxy, prednisone Follow up cultures On chronic Oxygen dependency: 3L NC at baseline CHRONIC AFIB, TACHY CHAD S/P PACEMAKER H/O AV node ablation EKG:paced Rate controlled Continue BB, coumadin Pacer interrogation Monitor INR 2.4 CKD III Cr baseline: mid 1's Monitor renal function HYPOTHYROIDISM continue levothyroxine DVT PX Coumadin CODE STATUS full code DISPOSITION: continue to monitor Plan to d/c back to [facility] when medically stable PT/OT consulted PROCEDURES: ECHO: * The LV wall motion was otherwise normal. * The qualitative LV ejection fraction=55% * There is moderate tricuspid regurgitation. * Mild pulmonary hypertension is present. * The PA systolic pressure is calculated to be 40 mm Hg. * There is mild mitral regurgitation. Vital Signs: Date Time Temp Pulse Resp B/P Pulse Ox O2 Delivery O2 Flow Rate FiO2 07/09/16 14:44 36.6 71 16 117/65 95 Nasal Cannula 4.0 07/09/16 14:20 77 18 97 Nasal Cannula 3.0 07/09/16 13:05 Nasal Cannula 3.0 07/09/16 11:22 36.8 70 18 104/49 97 Room Air 07/09/16 08:00 Nasal Cannula 3.5 07/09/16 07:26 36.7 70 20 109/53 98 Nasal Cannula 3.0 07/09/16 07:25 72 18 97 Nasal Cannula 3.0 07/09/16 04:32 36.7 78 20 127/71 96 Nasal Cannula 2.0 07/09/16 04:00 Nasal Cannula 3.0 07/09/16 02:12 76 18 96 Nasal Cannula 3.0 07/09/16 00:24 36.7 70 18 118/63 96 Nasal Cannula 3.0 07/09/16 00:00 Nasal Cannula 3.0 07/08/16 21:21 83 18 95 Nasal Cannula 3.0 07/08/16 20:45 64 131/72 07/08/16 20:00 Nasal Cannula 3.0 07/08/16 18:32 36.6 74 20 133/68 97 Nasal Cannula 3.0 07/08/16 17:36 36.4 71 21 141/69 100 07/08/16 17:32 71 21 141/69 100 Nasal Cannula 3.0 07/08/16 17:23 71 07/08/16 16:53 74 21 07/08/16 16:23 71 23 Lab Results: Results Past 24 Hours Test 07/08/16 19:00 07/08/16 19:40 07/09/16 01:00 07/09/16 07:19 Range/Units Creatine Kinase MB Ratio 0-3.0 Creatine Kinase MB 0.9 0.9 0.5-3.6 ng/ml Troponin I < 0.015 < 0.015 0-0.045 ng/ml White Blood Count 7.22 4.8-10.8 K/uL Red Blood Count 4.51 4.2-5.4 M/uL Hemoglobin 12.7 12.0-16.0 g/dL Hematocrit 38.2 37-47 % Mean Corpuscular Volume 84.7 80-100 fL Mean Corpuscular Hemoglobin 28.2 25-34 pg Mean Corpuscular Hemoglobin Concent 33.2 32-36 g/dl RDW Standard Deviation 47.4 36.4-46.3 fL RDW Coefficient of Variation 15.3 11.5-14.5 % Platelet Count 194 130-400 K/uL Mean Platelet Volume 10.4 7.4-10.4 fL Sodium Level 139 136-145 mmol/L Potassium Level 4.0 3.5-5.1 mmol/L Chloride Level 100 98-107 mmol/L Carbon Dioxide Level 29 21-32 mmol/L Anion Gap 10.0 3-11 mmol/L Blood Urea Nitrogen 36 7-18 mg/dl Creatinine 1.70 0.60-1.20 mg/dl Est Creatinine Clear Calc Drug Dose 26.6 ml/min Estimated GFR () 31.8 Estimated GFR (Non- 27.4 BUN/Creatinine Ratio 21.2 10-20 Random Glucose 123 70-99 mg/dl Calcium Level 9.2 8.5-10.1 mg/dl
[2016-07-09] MEDS ORDERED: WARFARIN SOD 4 MG TAB PO SCH (16:00)
[2016-07-10] VITALS (12 sets, daily range): BP systolic 110–137; BP diastolic 61–75; PULSE 71–84; TEMP 36.4–36.5; O2SAT 95–100
[2016-07-10] MEDS: ALBUT/IPRATROP 3MG/0.5MG NEB 3 ML VIAL INH SCH ×4 (02:07→19:21)
[2016-07-10] MEDS: DOXYCYCLINE IV 100 MG in DEXTROSE 5% 100ML 100 ML IV SCH ×2 (05:54→18:23)
[2016-07-10] MEDS: FUROSEMIDE 80 MG TAB PO SCH ×2 (05:54→15:06)
[2016-07-10] MEDS: LEVOTHYROXINE 88 MCG TAB PO SCH (05:55)
[2016-07-10 06:02] LABS: PROTHROMBIN TIME (PATIENT) 33.5 SECONDS (9.0-12.0)
[2016-07-10 06:31] LABS: BUN/CREATININE RATIO 25.5 (10-20); CALCIUM 9.8 mg/dl (8.5-10.1); CREATININE 1.7 mg/dl (0.60-1.20); POTASSIUM 5.1 mmol/L (3.5-5.1)
[2016-07-10] MEDS: POTASSIUM CHLORIDE 20 MEQ TABCR PO SCH ×2 (09:00→09:32)
[2016-07-10] MEDS: FLUTICASONE/SALMETEROL 250/50 (ADVAIR) 14 PUFF/1 INHALER INH SCH ×2 (09:27→20:00)
[2016-07-10] MEDS: PANTOprazole SOD 40 MG TAB PO SCH (09:27)
[2016-07-10] MEDS: ASPIRIN 81 MG ECTAB PO SCH (09:27)
[2016-07-10] MEDS: CALCIUM 600MG + VIT D 400 IU TAB PO SCH (09:28)
[2016-07-10] MEDS: SPIRONOLACTONE 25 MG TAB PO SCH (09:28)
[2016-07-10] MEDS: ALLOPURINOL 100 MG TAB PO SCH (09:28)
[2016-07-10] MEDS: CALCITRIOL 0.25 MCG CAP PO SCH (09:29)
[2016-07-10] MEDS: METOPROLOL TARTRATE 25 MG TAB PO SCH ×2 (09:31→20:02)
[2016-07-10] MEDS: DOCUSATE SODIUM 100 MG CAP PO SCH ×2 (09:33→20:02)
--- NOTE | 2016-07-10 12:22 | Progress Note ---
Internal Med Progress Note Date of Service: Jul 10, 2016. Provider Documentation: SUBJECTIVE: Patient is seen and examined at bedside. Patient states SOB resolved. Still has some productive cough. Leg swelling improving. Denies any chest pain, dizziness. Offers no other complaints. OBJECTIVE: Vital Signs-as noted below Physical Exam: General Appearance:Moderately built and nourished, no apparent distress Head: normocephalic, Atraumatic Eyes: normal inspection, EOMI, PERRLA Neck: supple, Trachea midline Respiratory/Chest: Decreases breath sounds, + rales Cardiovascular: S1, S2, No murmur Abdomen/GI:Soft, Non tender, Bowel sounds present Extremities/Musculoskelatal:normal inspection, 1+ b/l edema Neurologic/Psych:AAOX3, grossly no focal neurological deficits Skin: normal color, warm Lab data as noted below. ASSESSMENT & PLAN: CHEST PAIN/SOB: MULTIFACTORIAL ACUTE ON CHRONIC COPD EXACERBATION ACUTE ON CHRONIC DIASTOLIC CHF Presented with SOB and left sided sharp chest pain, productive cough for 2 days, and increased leg edema Continue monitoring in Tele Troponin negative EKG: paced rhythm ECHO: normal LV function S/P IV lasix >>> PO lasix Appreciate cardiology input Continue Aldactone, ASA, BB Continue bronchodilators, empiric doxy, prednisone taper Follow up cultures: No growth to date On chronic Oxygen dependency: 3L NC at baseline Potassium: Trending up Potassium levels:5.1 today Hold potassium supplements Also on Aldactone H/O CKD Monitor potassium levels CHRONIC AFIB, TACHY CHAD S/P PACEMAKER H/O AV node ablation EKG:paced Rate controlled Continue BB, coumadin Pacer interrogation Monitor INR 3.0 today Will hold home dose of Coumadin Give 2mg Coumadin today CKD III Cr baseline: mid 1's Monitor renal function HYPOTHYROIDISM continue levothyroxine DVT PX Coumadin CODE STATUS full code DISPOSITION: continue to monitor Plan to d/c back to [facility] when medically stable PT/OT consulted PROCEDURES: ECHO: * The LV wall motion was otherwise normal. * The qualitative LV ejection fraction=55% * There is moderate tricuspid regurgitation. * Mild pulmonary hypertension is present. * The PA systolic pressure is calculated to be 40 mm Hg. * There is mild mitral regurgitation. Vital Signs: Date Time Temp Pulse Resp B/P Pulse Ox O2 Delivery O2 Flow Rate FiO2 07/10/16 11:47 36.5 81 16 131/62 98 Nasal Cannula 3.0 07/10/16 09:35 77 137/75 07/10/16 08:00 100 Nasal Cannula 3.0 07/10/16 07:40 36.5 73 16 128/71 100 Nasal Cannula 3.0 07/10/16 07:39 71 16 96 Nasal Cannula 3.0 07/10/16 05:09 36.4 71 18 118/64 98 Nasal Cannula 3.0 07/10/16 04:11 Nasal Cannula 3.0 07/10/16 02:07 81 16 98 Nasal Cannula 3.0 07/10/16 00:43 36.5 71 18 131/69 96 Nasal Cannula 3.0 07/09/16 23:55 Nasal Cannula 3.0 07/09/16 20:01 Nasal Cannula 3.0 07/09/16 19:52 109 16 94 Nasal Cannula 3.0 07/09/16 19:09 36.7 71 18 145/82 99 Nasal Cannula 2.0 07/09/16 16:00 Nasal Cannula 3.0 07/09/16 14:44 36.6 71 16 117/65 95 Nasal Cannula 4.0 07/09/16 14:20 77 18 97 Nasal Cannula 3.0 07/09/16 13:05 Nasal Cannula 3.0 Lab Results: Results Past 24 Hours Test 07/10/16 05:34 Range/Units Prothrombin Time 33.5 9.0-12.0 SECONDS Prothromb Time International Ratio 3.0 0.9-1.1 Sodium Level 137 136-145 mmol/L Potassium Level 5.1 3.5-5.1 mmol/L Chloride Level 100 98-107 mmol/L Carbon Dioxide Level 30 21-32 mmol/L Anion Gap 7.0 3-11 mmol/L Blood Urea Nitrogen 43 7-18 mg/dl Creatinine 1.70 0.60-1.20 mg/dl Est Creatinine Clear Calc Drug Dose 26.6 ml/min Estimated GFR () 31.8 Estimated GFR (Non- 27.4 BUN/Creatinine Ratio 25.5 10-20 Random Glucose 119 70-99 mg/dl Calcium Level 9.8 8.5-10.1 mg/dl
[2016-07-10] MEDS ORDERED: WARFARIN SOD 2 MG TAB PO ONE (16:00)
[2016-07-11] VITALS (7 sets, daily range): BP systolic 120–148; BP diastolic 67–74; PULSE 72–78; TEMP 36.4–36.8; O2SAT 93–100
[2016-07-11] MEDS: ALBUT/IPRATROP 3MG/0.5MG NEB 3 ML VIAL INH SCH ×2 (01:57→07:24)
[2016-07-11] MEDS: FUROSEMIDE 80 MG TAB PO SCH (05:50)
[2016-07-11] MEDS: LEVOTHYROXINE 88 MCG TAB PO SCH (05:50)
[2016-07-11] MEDS: DOXYCYCLINE IV 100 MG in DEXTROSE 5% 100ML 100 ML IV SCH (05:50)
[2016-07-11 06:25] LABS: INR 2.6 (0.9-1.1); PROTHROMBIN TIME (PATIENT) 29.1 SECONDS (9.0-12.0)
[2016-07-11 06:56] LABS: BUN/CREATININE RATIO 30.4 (10-20); CALCIUM 9.2 mg/dl (8.5-10.1); CREATININE 1.7 mg/dl (0.60-1.20); POTASSIUM 3.8 mmol/L (3.5-5.1)
[2016-07-11] MEDS: CALCITRIOL 0.25 MCG CAP PO SCH (08:28)
[2016-07-11] MEDS: ASPIRIN 81 MG ECTAB PO SCH (08:28)
[2016-07-11] MEDS: FLUTICASONE/SALMETEROL 250/50 (ADVAIR) 14 PUFF/1 INHALER INH SCH (08:28)
[2016-07-11] MEDS: ALLOPURINOL 100 MG TAB PO SCH (08:29)
[2016-07-11] MEDS: SPIRONOLACTONE 25 MG TAB PO SCH (08:29)
[2016-07-11] MEDS: CALCIUM 600MG + VIT D 400 IU TAB PO SCH (08:29)
[2016-07-11] MEDS: METOPROLOL TARTRATE 25 MG TAB PO SCH (08:30)
[2016-07-11] MEDS: PANTOprazole SOD 40 MG TAB PO SCH (08:30)
[2016-07-11] MEDS: DOCUSATE SODIUM 100 MG CAP PO SCH (08:30)
--- NOTE | 2016-07-11 12:31 | Progress Note ---
Internal Med Progress Note Date of Service: Jul 11, 2016. Provider Documentation: SUBJECTIVE: Patient is seen and examined at bedside. States having mild intermittent cough. SOB resolved. Denies chest pain. B/L leg swelling improving. Family at bedside. Offers no other complaints. OBJECTIVE: Vital Signs-as noted below Physical Exam: General Appearance:Moderately built and nourished, no apparent distress Head: normocephalic, Atraumatic Eyes: normal inspection, EOMI, PERRLA Neck: supple, Trachea midline Respiratory/Chest: Decreases breath sounds,CTA Cardiovascular: S1, S2, No murmur Abdomen/GI:Soft, Non tender, Bowel sounds present Extremities/Musculoskelatal:normal inspection, 1+ b/l edema Neurologic/Psych:AAOX3, grossly no focal neurological deficits Skin: normal color, warm Lab data as noted below. ASSESSMENT & PLAN: CHEST PAIN/SOB: MULTIFACTORIAL ACUTE ON CHRONIC COPD EXACERBATION ACUTE ON CHRONIC DIASTOLIC CHF Presented with SOB and left sided sharp chest pain, productive cough for 2 days, and increased leg edema Continue monitoring in Tele Troponin negative EKG: paced rhythm ECHO: normal LV function S/P IV lasix >>> PO lasix Appreciate cardiology input Continue Aldactone, ASA, BB Continue bronchodilators, empiric doxy, prednisone taper Follow up cultures: No growth to date On chronic Oxygen dependency: 3L NC at baseline CHRONIC AFIB, TACHY CHAD S/P PACEMAKER H/O AV node ablation EKG:paced Rate controlled Continue BB, coumadin Pacer interrogation Monitor INR 2.6 today Resume to home Coumadin dosage CKD III Cr baseline: mid 1's Monitor renal function HYPOTHYROIDISM continue levothyroxine DVT PX Coumadin CODE STATUS full code DISPOSITION: Plan to discharge home today Follow up with on 07/14/16 at 11:20AM Get PT/INR checked on 07/12/16 and follow up with your physician for further coumadin dosage Complete the antibiotic and prednisone taper course as prescribed. PROCEDURES: ECHO: * The LV wall motion was otherwise normal. * The qualitative LV ejection fraction=55% * There is moderate tricuspid regurgitation. * Mild pulmonary hypertension is present. * The PA systolic pressure is calculated to be 40 mm Hg. * There is mild mitral regurgitation. Vital Signs: Date Time Temp Pulse Resp B/P Pulse Ox O2 Delivery O2 Flow Rate FiO2 07/11/16 11:23 36.8 76 16 120/71 97 Nasal Cannula 3.0 07/11/16 08:00 Nasal Cannula 3.0 07/11/16 07:24 72 16 99 Nasal Cannula 3.0 07/11/16 07:20 36.4 73 18 130/73 98 Nasal Cannula 2.0 07/11/16 05:14 36.4 78 18 148/67 100 Nasal Cannula 3.0 07/11/16 04:00 Nasal Cannula 3.0 07/11/16 01:57 74 16 93 Nasal Cannula 3.0 07/11/16 00:08 Nasal Cannula 3.0 07/11/16 00:00 36.5 74 18 128/74 98 Nasal Cannula 3.0 07/10/16 20:00 Nasal Cannula 3.0 07/10/16 19:47 36.4 75 18 124/75 96 Nasal Cannula 3.0 07/10/16 19:23 77 16 97 Nasal Cannula 3.0 07/10/16 16:00 Nasal Cannula 3.0 07/10/16 15:13 36.4 84 18 110/61 95 Nasal Cannula 3.0 07/10/16 14:29 73 16 98 Nasal Cannula 3.0 Lab Results: Results Past 24 Hours Test 07/11/16 05:40 07/11/16 05:46 Range/Units Prothrombin Time 29.1 9.0-12.0 SECONDS Prothromb Time International Ratio 2.6 0.9-1.1 Sodium Level 141 136-145 mmol/L Potassium Level 3.8 3.5-5.1 mmol/L Chloride Level 99 98-107 mmol/L Carbon Dioxide Level 34 21-32 mmol/L Anion Gap 8.0 3-11 mmol/L Blood Urea Nitrogen 52 7-18 mg/dl Creatinine 1.70 0.60-1.20 mg/dl Est Creatinine Clear Calc Drug Dose 26.8 ml/min Estimated GFR () 31.8 Estimated GFR (Non- 27.4 BUN/Creatinine Ratio 30.4 10-20 Random Glucose 106 70-99 mg/dl Calcium Level 9.2 8.5-10.1 mg/dl
[2016-07-11] MEDS ORDERED: PRED10TA PO (13:11)
[2016-07-11] MEDS ORDERED: DOXY-300 PO (13:11)
[2016-07-11] MEDS ORDERED: PRD20 PO (13:11)
--- NOTE | 2016-07-11 13:18 | Discharge Summary ---
Discharge Summary Date of Service Jul 11, 2016. Discharge Summary Admission Date: Jul 08, 2016 at 15:31 Discharge Date: Jul 11, 2016 Discharge Disposition: Personal care Principal Diagnosis: ACUTE COPD EXACERBATION, acute on chronic CHF Procedures: CXR: No active disease in the chest. Consultations: Cardiology Pending Studies/Follow-Up: Follow up with on 07/14/16 at 11:20AM Get PT/INR checked on 07/12/16 and follow up with your physician for further coumadin dosage Follow up with your accountant clerk per your PCP recommendations Complete the antibiotic and prednisone taper course as prescribed. Seek immediate medical attention if symptoms reoccur or worsen Medication Reconciliation New Medications: Doxycycline (Monohydrate) (Doxycycline) 100 Mg Cap 100 MG PO BID for 3 Days, #6 Prednisone Tab (Prednisone) 10 Mg Tab 10 MG PO UD for 3 Days, #3 TAB Start taking prednisone 20mg for 2 days and then 10mg for 3 days and stop Prednisone (Prednisone) 20 Mg Tab 20 MG PO DAILY for 2 Days, #2 TAB Start taking prednisone 20mg for 2 days and then 10mg for 3 days and stop Continued Medications: Albuterol Hfa (Ventolin Hfa) 200 Puffs/97219 Mcg Aers 2 PUFFS INH Q4 PRN for SOB/Wheezing, #1 INHALER Allopurinol (Zyloprim) 100 Mg Tab 50 MG PO DAILY, TAB Aspirin (Aspirin 81) 81 Mg Tab 1 TAB PO DAILY Benzonatate (Tessalon Perles) 100 Mg Cap 100 MG PO TID PRN for Cough, CAP Calcitriol (Rocaltrol Cap) 0.25 Mcg Cap 0.25 MCG PO DAILY, 0 Refills Calcium/Vitamin D (Os-Tesfaye 500 Plus D) Tab 1 TAB PO DAILY, TAB Docusate Sodium (Docusate Sodium) 100 Mg Cap 1 CAP PO BID for 7 Days, CAP Fluticasone Prop/Salmeterol (Advair Diskus 250-50 Mcg/Dose) 14 Puff/1 Inhaler Aerp 1 PUFF INH BID for 30 Days, #1 UNIT 2 Refills Furosemide (Furosemide) 80 Mg Tab 1 TAB PO BID Ipratropium-Albuterol (Duoneb) 3 Ml Nebu 1 TREATMENT INH QID, INHA Levothyroxine Sodium (Synthroid) 88 Mcg Tab 88 MCG PO DAILY, TAB Metoprolol Tartrate (Lopressor) (Lopressor) 25 Mg Tab 12.5 MG PO BID, TAB Nitroglycerin (Nitrostat) 0.4 Mg Tab 0.4 MG UT PRN, BTL Pantoprazole (Protonix) 40 Mg Tab 40 MG PO DAILY, #30 TAB Potassium Ext Rel (Klor-Con) 20 Meq Tabcr 20 MEQ PO DAILY, TAB PUT IN YOGURT Senna/Docusate Sod (Senokot S) 1 Tab Tab 1 TAB PO DAILY PRN for Constipation, TAB Spironolactone (Aldactone) 25 Mg Tab 12.5 MG PO DAILY, TAB Tramadol (Ultram) 50 Mg Tab 50 MG PO Q6 PRN for Pain, TAB Warfarin Sodium (Warfarin Sodium) 4 Mg Tab 1 TAB PO MWF for 90 Days, TAB 3 Refills Warfarin Sodium (Warfarin Sodium) 6 Mg Tab 6 MG PO 4XWK, TAB TUESDAY, TUESDAY, TUESDAY AND TUESDAY Admission Information HPI (per Admitting provider): 81 year old female who presents to the ER with shortness of breath and chest pain. Patient resides at [facility]. She reports she developed shortness of breath this morning with associated left sided chest discomfort. Patient reports symptoms started to resolve on their own when she arrived to the ER. She reports the shortness of breath is improved. She still has left sided chest discomfort however it is improved as well. Patient is somewhat of a poor historian and it is difficult to elicit details about the chest pain. Seems like it has been constant since the shortness of breath started. No specific causative or alleviating factors. Patient reports she has been coughing for the past two days which has been productive for a yellow sputum. She noted herself to be wheezing today. She reports increasing leg edema over the past few days. Reports her legs get red when they swell. She denies lightheadedness, dizziness , diaphoresis, or syncopal events. She repots having nausea and vomiting a couple of days ago which has resolved. No diarrhea. She denies urinary symptoms. No fever or chills. In the ER, patient is saturating well on her chronic 3L oxygen. Initial troponin is negative, EKG demonstrates paced rhythm. CXR is clear. Vitals are stable. Labs are unremarkable. Physical Exam (per Admitting): General Appearance: no apparent distress Head: normocephalic Eyes: normal inspection ENT: hearing grossly normal Neck: supple, no JVD Respiratory/Chest: no respiratory distress, + decreased breath sounds (poor air entry noted BL), + pertinent finding (audible expiratory wheezing; left chest wall tenderness) Cardiovascular: regular rate, rhythm, + pertinent finding (+1 pitting edema BLLE) Abdomen/GI: normal bowel sounds, non tender, soft Extremities/Musculoskelatal: normal inspection, no calf tenderness Neurologic/Psych: no motor/sensory deficits, alert, normal mood/affect, oriented x 3 Skin: warm/dry, + pertinent finding (BLLE with chronic venous changes/ erythema) Hospital Course CHEST PAIN/SOB: MULTIFACTORIAL ACUTE ON CHRONIC COPD EXACERBATION ACUTE ON CHRONIC DIASTOLIC CHF Presented with SOB and left sided sharp chest pain, productive cough for 2 days, and increased leg edema Continue monitoring in Tele Troponin negative EKG: paced rhythm ECHO: normal LV function S/P IV lasix >>> PO lasix Appreciate cardiology input Continue Aldactone, ASA, BB Continue bronchodilators, empiric doxy, prednisone taper Follow up cultures: No growth to date On chronic Oxygen dependency: 3L NC at baseline CHRONIC AFIB, TACHY CHAD S/P PACEMAKER H/O AV node ablation EKG:paced Rate controlled Continue BB, coumadin Pacer interrogation Monitor INR 2.6 today Resume to home Coumadin dosage CKD III Cr baseline: mid 1's Monitor renal function HYPOTHYROIDISM continue levothyroxine DVT PX Coumadin CODE STATUS full code DISPOSITION: Plan to discharge home today Follow up with on 07/14/16 at 11:20AM Get PT/INR checked on 07/12/16 and follow up with your physician for further coumadin dosage Complete the antibiotic and prednisone taper course as prescribed. PROCEDURES: ECHO: * The LV wall motion was otherwise normal. * The qualitative LV ejection fraction=55% * There is moderate tricuspid regurgitation. * Mild pulmonary hypertension is present. * The PA systolic pressure is calculated to be 40 mm Hg. * There is mild mitral regurgitation. Total time spent on discharge = 35 minutes This includes examination of the patient, discharge planning, medication reconciliation, and communication with other providers. Discharge Instructions Discharge Instructions Date of Service Jul 11, 2016. Admission Reason for Admission: Shortness Of Breath Discharge Discharge Diagnosis / Problem: ACUTE COPD EXACERBATION, acute on chronic CHF Discharge Goals Goal(s): Decrease discomfort, Improve function Activity Recommendations Activity Limitations: resume your previous activity Exercise/Sports Limitations: as tolerated . Instructions / Follow-Up Instructions / Follow-Up Follow up with on 07/14/16 at 11:20AM Get PT/INR checked on 07/12/16 and follow up with your physician for further coumadin dosage Follow up with your accountant clerk per your PCP recommendations Complete the antibiotic and prednisone taper course as prescribed. Seek immediate medical attention if symptoms reoccur or worsen Current Hospital Diet Patient's current hospital diet: AHA Diet (Heart Healthy), Low Sodium Diet (2gm Na) Discharge Diet Recommended Diet: AHA Diet (Heart Healthy), Low Sodium Diet (2gm Na) Pending Studies Studies pending at discharge: no Medical Emergencies . Who to Call and When: Medical Emergencies: If at any time you feel your situation is an emergency, please call 911 immediately. . Non-Emergent Contact Non-Emergency issues call your: Primary Care Provider Call Non-Emergent contact if: you have a fever, your pain is not controlled, your pain is worsening, your pain is unusual for you, you have any medication questions If your shortness of breath worsens . . "Provider Documentation" section prepared by Edgar De La Rosa. VTE Core Measure Inpt VTE Proph given/why not?: Warfarin (Coumadin)
[2016-09-18] MEDS ORDERED: METO25TA56 PO (06:06)
[2016-09-18] MEDS ORDERED: PANT40TA PO (10:08)
[2016-09-18] MEDS ORDERED: DOCU100C31 PO (10:08)
[2016-09-18] MEDS ORDERED: POTA20TA16 PO (10:08)
[2016-09-18] MEDS ORDERED: SPIR25TA89 PO (12:49)
[2016-09-18] MEDS ORDERED: LEVO88TA PO (12:49)
[2016-09-18] MEDS ORDERED: BENZ100C18 PO (14:42)
[2016-09-18] MEDS ORDERED: WARF-286 PO (14:42)
[2016-09-18] MEDS ORDERED: WARF-283 PO (14:42)
[2016-09-18] MEDS ORDERED: VNTHFA/IN INH (14:42)
[2016-09-18] MEDS ORDERED: LSX80 PO (14:42)
[2016-09-18] MEDS ORDERED: ASPI-435 PO (14:42)
[2016-09-18] MEDS ORDERED: ALLO100T PO (14:42)
== END 2016-07-11 14:24 | disposition home or self-care (01) | DRG 190 ==
LOC: ENRESERVDT → ENRESERV → ENRESERVTM → C.EDB 12:54 → C.MED 15:31
PROVIDERS: ADMIT Internal Medicine; ATTEND Internal Medicine
DX: J44.1 Chronic obstructive pulmonary disease with (acute) exacerbation (principal); I50.33 Acute on chronic diastolic (congestive) heart failure; I13.0 Hypertensive heart and chronic kidney disease with heart failure and stage 1 through stage 4 chronic kidney disease, or unspecified chronic kidney disease; J44.0 Chronic obstructive pulmonary disease with (acute) lower respiratory infection; K21.9 Gastro-esophageal reflux disease without esophagitis; Z96.641 Presence of right artificial hip joint; M19.90 Unspecified osteoarthritis, unspecified site; J20.9 Acute bronchitis, unspecified; I48.2 Chronic atrial fibrillation; E03.9 Hypothyroidism, unspecified; E78.5 Hyperlipidemia, unspecified; R07.9 Chest pain, unspecified; N18.3 Chronic kidney disease, stage 3 (moderate); Z96.659 Presence of unspecified artificial knee joint; Z87.891 Personal history of nicotine dependence; Z79.899 Other long term (current) drug therapy; Z99.81 Dependence on supplemental oxygen; Z79.82 Long term (current) use of aspirin; Z79.01 Long term (current) use of anticoagulants; Z95.0 Presence of cardiac pacemaker; Z79.891 Long term (current) use of opiate analgesic; Z79.51 Long term (current) use of inhaled steroids; Z98.1 Arthrodesis status

== ENCOUNTER → 2016-07-20 | Outpatient (CLI) | payer OTHER ==
[~2016-07-20] MED LIST changes: +ADVIN25/60 INH; -ALBUAER2 INH; +ALLO100T PO; -ASPCH81 PO; +ASPI-435 PO; +BENZ100C18 PO; +CALC0.2510 PO; +CALC500C70 PO; +DOCU100C31 PO; +DOXY-300 PO; -FRS/40 PO; +IPRASOL4 INH; +LEVO88TA PO; +LSX80 PO; +METO25TA56 PO; +NTRGSL/4 UT; -NYSS/ MT; -ONDA4TAB10 SL; +PANT40TA PO; +POTA20TA16 PO; +PRD20 PO; +SENN-65 PO; +SPIR25TA89 PO; +TRAM-10 PO; +VNTHFA/IN INH; +WARF-283 PO; +WARF-286 PO; -WARF4TAB PO
[2016-07-20 13:22] LABS: INR 2.5 (0.9-1.1); PROTHROMBIN TIME (PATIENT) 27.3 SECONDS (9.0-12.0)
== END | disposition home or self-care (01) ==
LOC: C.LABOAKS 14:43
PROVIDERS: ATTEND Internal Medicine Critical Care Medicine
DX: Z51.81 Encounter for therapeutic drug level monitoring (principal); Z79.01 Long term (current) use of anticoagulants

== ENCOUNTER → 2016-08-03 | Outpatient (CLI) | payer OTHER ==
[2016-08-03 12:14] LABS: INR 2.2 (0.9-1.1); PROTHROMBIN TIME (PATIENT) 24.6 SECONDS (9.0-12.0)
== END | disposition home or self-care (01) ==
LOC: C.LABOAKS 12:30
PROVIDERS: ATTEND Family Medicine
DX: I48.2 Chronic atrial fibrillation (principal); Z51.81 Encounter for therapeutic drug level monitoring; Z79.01 Long term (current) use of anticoagulants

== ENCOUNTER → 2016-08-24 | Outpatient (CLI) | payer OTHER ==
[2016-08-24 12:36] LABS: BLOOD UREA NITROGEN 34 mg/dl (7-18); BUN/CREATININE RATIO 21.5 (10-20); CALCIUM 8.8 mg/dl (8.5-10.1); CARBON DIOXIDE 38 mmol/L (21-32); CHLORIDE 100 mmol/L (98-107); GLUCOSE 88 mg/dl (70-99); POTASSIUM 3.8 mmol/L (3.5-5.1); SODIUM 142 mmol/L (136-145)
== END | disposition home or self-care (01) ==
LOC: C.LABOAKS 08:57
PROVIDERS: ATTEND Physician Assistant
DX: I50.31 Acute diastolic (congestive) heart failure (principal)

== ENCOUNTER → 2016-08-31 | Outpatient (CLI) | payer OTHER ==
[2016-08-31 12:51] LABS: INR 2.5 (0.9-1.1); PROTHROMBIN TIME (PATIENT) 27.9 SECONDS (9.0-12.0)
--- NOTE | 2016-09-01 13:21 | CODING QUERY NO DIAGNOSIS ---
: 1935 TREATMENT RENDERED WITHOUT A DIAGNOSIS To promote full compliance with coding requirements relating to patient care, physician participation is requested in all cases of reimbursement counselor uncertainty. Please assist us with providing a diagnosis/symptom for the test(s) below: A diagnosis/symptom was not documented on your Order. A valid diagnosis/symptom is required to bill all insurances. Please remember that we are unable to code a diagnosis of rule out, probable, possible, questionable, or suspected. Tests that require a diagnosis: DOS: 08/31/16 * Prothrombin Time Profile DIAGNOSIS: Provider Signature: Date: Thank you Constance Caputo Health Information Management Once completed, please kindly fax back to [phone] For questions please call [phone]
== END | disposition home or self-care (01) ==
LOC: C.LABOAKS 10:34
PROVIDERS: ATTEND Pharmacist Pharmacotherapy
DX: I48.91 Unspecified atrial fibrillation (principal)

== ENCOUNTER → 2016-09-14 | Outpatient (CLI) | payer OTHER ==
[2016-09-14 13:07] LABS: CALCIUM 9.3 mg/dl (8.5-10.1)
[2016-09-14 13:08] LABS: BLOOD UREA NITROGEN 28 mg/dl (7-18); BUN/CREATININE RATIO 16.4 (10-20); CARBON DIOXIDE 33 mmol/L (21-32); CHLORIDE 100 mmol/L (98-107); GLUCOSE 88 mg/dl (70-99); MAGNESIUM 2.1 mg/dl (1.8-2.4); POTASSIUM 3.4 mmol/L (3.5-5.1); SODIUM 142 mmol/L (136-145)
== END | disposition home or self-care (01) ==
LOC: C.LABOAKS 10:33
PROVIDERS: ATTEND Physician Assistant
DX: N18.4 Chronic kidney disease, stage 4 (severe) (principal)

== ENCOUNTER 2016-09-18 18:50 | Emergency (ER) | payer OTHER ==
[~2016-09-18] VITALS: Ht 162.6 cm; Wt 83.0 kg
[~2016-09-18 18:50] MED LIST changes: -ADVIN25/60 INH; -CALC0.2510 PO; -CALC500C70 PO; -IPRASOL4 INH; -NTRGSL/4 UT; -SENN-65 PO; -TRAM-10 PO
[2016-09-18 18:55] VITALS: TEMP 36.4; Ht 162.6 cm; Wt 83.0 kg
[2016-09-18] MEDS ORDERED: NTRGSL/4 UT (19:13)
[2016-09-18] MEDS ORDERED: TRAM-10 PO (19:13)
[2016-09-18] MEDS ORDERED: CALC500C70 PO (19:13)
[2016-09-18] MEDS ORDERED: IPRASOL4 INH (19:13)
[2016-09-18] MEDS ORDERED: SENN-65 PO (19:13)
[2016-09-18 19:34] LABS: BASO % 0.7 %; BASO ABS # 0.04 K/uL (0-0.2); COMPLETE YES; EOS % 1.7 %; HEMATOCRIT 39.6 % (37-47); IG% 0.2 %; LYMPH % 19.5 %; LYMPH ABS # 1.18 K/uL (1.2-3.4); MEAN CELL VOLUME 86.1 fL (80-100); MEAN CORPUSCULAR HEMOGLOBIN 27.4 pg (25-34); MEAN CORPUSCULAR HGB CONC 31.8 g/dl (32-36); MEAN PLATELET VOLUME 10.2 fL (7.4-10.4); MONO % 10.1 %; NEUT % 67.8 %; PLATELET COUNT 183 K/uL (130-400); WHITE BLOOD COUNT 6.04 K/uL (4.8-10.8)
[2016-09-18 19:41] LABS: INR 2.1 (0.9-1.1); PROTHROMBIN TIME (PATIENT) 23.3 SECONDS (9.0-12.0)
[2016-09-18 20:04] VITALS: BP 150/80; PULSE 65; O2SAT 93
[2016-09-18] MEDS ORDERED: ADVIN25/60 INH (20:43)
[2016-09-18] MEDS ORDERED: CALC0.2510 PO (23:20)
--- NOTE | 2016-09-19 00:40 | EMERGENCY ROOM VISIT NOTE ---
History Report prepared by Rufina: Luis Price Under the Supervision of: Dr. Adonis Tavares D.O. First contact with patient: 18:57 Chief Complaint: SWELLING TO EXTREMITY Stated Complaint: SWELLING LEFT ARM, PURPLE History of Present Illness The patient is a 81 year old female who presents to the Emergency Room with complaints of worsening swelling and bruising to her left arm starting this afternoon. That patient states that she felt a pain in her upper left arm yesterday but denies any sight of bruising or swelling. She reports that she went to take a nap this afternoon and woke up to find a bruise and swelling to her left upper arm. Her son admits that she has been more active than usual the last couple of days. The patient states that she has an irregular heartbeat that she has a pacemaker and consistently takes Coumadin for. She reports that her levels have been normal and she has last checked with her doctor a month ago with [facility]. The patient admits that there is pain in her arm with movement. The patient denies any any current pain or tingling to her left arm, possible injury, headache, change in vision, fevers, chest pain, and shortness of breath. Source of History: patient, family (son) Onset: this afternoon Position: arm (left) Timing: worsening Modifying Factors (Worsening): movement Associated Symptoms: No fevers, No headache, No SOB, No nausea, No vomiting , No urinary symptoms, No numbness (left arm) Note: The patient denies any arm pain, tingling, or any possible injury. Review of Systems See HPI for pertinent positives & negatives. A total of 10 systems reviewed and were otherwise negative. 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 Surgical Problems: (1) History of appendectomy (2) History of cholecystectomy (3) History of hysterectomy (4) History of knee replacement (5) History of lumbar laminectomy for spinal cord decompression (6) History of tonsillectomy (7) History of total right hip arthroplasty (8) History of tubal ligation (9) S/P placement of cardiac pacemaker (10) S/P tonsillectomy and adenoidectomy Family History No pertinent family history Social History Smoking Status: Former Smoker Alcohol Use: none Drug Use: none Marital Status: Housing Status: lives alone Occupation Status: retired Current/Historical Medications Scheduled Allopurinol (Zyloprim), 50 MG PO DAILY Aspirin (Aspirin 81), 1 TAB PO DAILY Calcitriol (Rocaltrol Cap), 0.25 MCG PO DAILY Calcium/Vitamin D (Os-Tesfaye 500 Plus D), 1 TAB PO DAILY Docusate Sodium (Docusate Sodium), 1 CAP PO BID Fluticasone Prop/Salmeterol (Advair Diskus 250/50 60 Dose), 1 PUFF INH BID Furosemide (Furosemide), 1 TAB PO BID Ipratropium-Albuterol (Duoneb), 1 TREATMENT INH QID Levothyroxine Sodium (Synthroid), 88 MCG PO DAILY Metoprolol Tartrate (Lopressor) (Lopressor), 12.5 MG PO BID Nitroglycerin (Nitrostat), 0.4 MG UT PRN Pantoprazole (Protonix), 40 MG PO DAILY Potassium Ext Rel (Klor-Con), 20 MEQ PO DAILY Spironolactone (Aldactone), 12.5 MG PO DAILY Warfarin Sodium (Warfarin Sodium), 1 TAB PO MWF Warfarin Sodium (Warfarin Sodium), 6 MG PO 4XWK Scheduled PRN Albuterol Hfa (Ventolin Hfa), 2 PUFFS INH Q4 PRN for SOB/Wheezing Benzonatate (Tessalon Perles), 100 MG PO TID PRN for Cough Senna/Docusate Sod (Senokot S), 1 TAB PO DAILY PRN for Constipation Tramadol (Ultram), 50 MG PO Q6 PRN for Pain Allergies Coded Allergies: Oxycodone (Verified Adverse Reaction, Intermediate, ALTERED MENTAL STATUS , N/V, 07/17/15) Alcohol (Verified Adverse Reaction, Mild, PASSES OUT WITH A SIP, 07/17/15) Codeine (Verified Adverse Reaction, Mild, N/V - RECEIVED MORPHINE ON PRIOR ADMIT W/O RXN, 07/17/15) PER PT: PASSED OUT AFTER CODEINE 30YRS AGO. Physical Exam Vital Signs Date Time Temp Pulse Resp B/P (MAP) Pulse Ox O2 Delivery O2 Flow Rate FiO2 09/18/16 20:04 65 16 150/80 93 09/18/16 18:55 36.4 85 20 147/92 95 Nasal Cannula 3.0 Physical Exam GENERAL: sitting up in bed alert, well appearing, well nourished, no distress, non-toxic EYE EXAM: normal conjunctiva OROPHARYNX: mucous membranes are moist NECK: supple, no nuchal rigidity, no adenopathy, non-tender LUNGS: Clear to auscultation. Normal chest wall mechanics HEART: no murmurs, S1 normal and S2 normal ABDOMEN: abdomen soft, non-tender, normo-active bowel sounds, no masses, no rebound or guarding. BACK: Back is symmetrical on inspection and there is no deformity, no midline tenderness, no CVA tenderness. SKIN: Anterior midshaft humerus with 6x13 cm bruising. Swollen lesion on proximal portion of first/ second MTP. UPPER EXTREMITIES: upper extremities are grossly normal. radial extremities +2. LOWER EXTREMITIES: No pitting edema. NEURO EXAM: Normal sensorium, cranial nerves II-XII grossly intact, normal speech, no gross weakness of arms, no gross weakness of legs. Medical Decision & Procedures Laboratory Results 09/18/16 19:25 Red Blood Count 4.60, Mean Corpuscular Volume 86.1, Mean Corpuscular Hemoglobin 27.4, Mean Corpuscular Hemoglobin Concent 31.8, Mean Platelet Volume 10.2, Neutrophils (%) (Auto) 67.8, Lymphocytes (%) (Auto) 19.5, Monocytes (%) (Auto) 10.1, Eosinophils (%) (Auto) 1.7, Basophils (%) (Auto) 0.7, Neutrophils # (Auto ) 4.10, Lymphocytes # (Auto) 1.18, Monocytes # (Auto) 0.61, Eosinophils # (Auto ) 0.10, Basophils # (Auto) 0.04 Test 09/18/16 19:25 White Blood Count 6.04 K/uL (4.8-10.8) Red Blood Count 4.60 M/uL (4.2-5.4) Hemoglobin 12.6 g/dL (12.0-16.0) Hematocrit 39.6 % (37-47) Mean Corpuscular Volume 86.1 fL (80-100) Mean Corpuscular Hemoglobin 27.4 pg (25-34) Mean Corpuscular Hemoglobin Concent 31.8 g/dl (32-36) Platelet Count 183 K/uL (130-400) Mean Platelet Volume 10.2 fL (7.4-10.4) Neutrophils (%) (Auto) 67.8 % Lymphocytes (%) (Auto) 19.5 % Monocytes (%) (Auto) 10.1 % Eosinophils (%) (Auto) 1.7 % Basophils (%) (Auto) 0.7 % Neutrophils # (Auto) 4.10 K/uL (1.4-6.5) Lymphocytes # (Auto) 1.18 K/uL (1.2-3.4) Monocytes # (Auto) 0.61 K/uL (0.11-0.59) Eosinophils # (Auto) 0.10 K/uL (0-0.5) Basophils # (Auto) 0.04 K/uL (0-0.2) RDW Standard Deviation 44.0 fL (36.4-46.3) RDW Coefficient of Variation 14.2 % (11.5-14.5) Immature Granulocyte % (Auto) 0.2 % Immature Granulocyte # (Auto) 0.01 K/uL (0.00-0.02) Prothrombin Time 23.3 SECONDS (9.0-12.0) Prothromb Time International Ratio 2.1 (0.9-1.1) Laboratory results per my review. ED Course ED COURSE: Vital signs were reviewed and showed hypertensive. The patients medical record was reviewed The above diagnostic studies were performed and reviewed. ED treatments and interventions as stated above. 1900: The patient was evaluated in room C08. A complete history and physical examination was performed. 1999: Upon reevaluation, the patient is feeling better. I discussed the findings and the treatment plan with the patient. She verbalizes agreement and understanding. She was discharged home. Medical Decision The differential diagnosis includes: Differential diagnosis: Etiologies such as fracture, dislocation, neurovascular compromise, compartment syndrome, soft tissue injury, as well as others were entertained. Patient is an 81-year-old female who presents the ER for a bruise on her left upper extremity. She does take Coumadin. She denies any trauma. No tingling or numbness. She is completely neurologically intact. She has full range of motion of the extremity in all joints. INR was 2.1. Patient was updated regards to this and discharged follow with her primary care doctor. Discussed with Pt concerning signs and symptoms to watch out for. I do question whether she slept on this wrong. Pt was instructed to follow up with their PCP and discussed with the patient their option to return to the ED at anytime for persistent or worsening symptoms. The appropriate anticipatory guidance and out- patient management, including indications for return to the emergency department , were explained at length to the patient and understood. Impression Primary Impression: Contusion of left arm Scribe Attestation The scribe's documentation has been prepared under my direction and personally reviewed by me in its entirety. I confirm that the note above accurately reflects all work, treatment, procedures, and medical decision making performed by me. Departure Information Dispostion Home / Self-Care Referrals Wade Brock (PCP) Forms HOME CARE DOCUMENTATION FORM, IMPORTANT VISIT INFORMATION, WORK / SCHOOL INSTRUCTIONS Patient Instructions ED Contusion Upper Ext, My [facility] Additional Instructions Please follow up with your primary care doctor with in the next 24 hours. Any worsening of your symptoms, please return to the ED immediately. This includes tingling or numbness in your arm, weakness, dizziness or lightheadedness, or any other concerning signs or symptoms from your standpoint. Your Coumadin level was 2.1. Please take Tylenol as needed for pain. Problem Qualifiers Primary Impression: Contusion of left arm Encounter type: initial encounter Qualified Codes: S40.022A - Contusion of left upper arm, initial encounter
== END 2016-09-18 20:05 | disposition home or self-care (01) ==
LOC: C.EDB 18:51 → C.EDC 20:05
DX: S40.022A Contusion of left upper arm, initial encounter (principal); X58.XXXA Exposure to other specified factors, initial encounter; I48.91 Unspecified atrial fibrillation; I12.9 Hypertensive chronic kidney disease with stage 1 through stage 4 chronic kidney disease, or unspecified chronic kidney disease; N18.3 Chronic kidney disease, stage 3 (moderate); E78.5 Hyperlipidemia, unspecified; E03.9 Hypothyroidism, unspecified; I50.30 Unspecified diastolic (congestive) heart failure; J44.9 Chronic obstructive pulmonary disease, unspecified; M19.90 Unspecified osteoarthritis, unspecified site; Z90.710 Acquired absence of both cervix and uterus; Z98.51 Tubal ligation status; Z90.49 Acquired absence of other specified parts of digestive tract; Z98.1 Arthrodesis status; Z95.0 Presence of cardiac pacemaker; Z98.890 Other specified postprocedural states; Z96.659 Presence of unspecified artificial knee joint; Z96.641 Presence of right artificial hip joint; Z87.891 Personal history of nicotine dependence; Z79.01 Long term (current) use of anticoagulants; Z79.82 Long term (current) use of aspirin; Z79.899 Other long term (current) drug therapy; Z88.5 Allergy status to narcotic agent; Z88.8 Allergy status to other drugs, medicaments and biological substances

== ENCOUNTER → 2016-09-28 | Outpatient (CLI) | payer OTHER ==
[~2016-09-28] MED LIST changes: +ADVIN25/60 INH; -ADVIN25050 INH; +CALC0.2510 PO; +CALC500C70 PO; -DOXY-300 PO; +IPRASOL4 INH; +NTRGSL/4 UT; -PRD20 PO; +SENN-65 PO; +TRAM-10 PO
[2016-09-28 13:33] LABS: INR 2.8 (0.9-1.1); PROTHROMBIN TIME (PATIENT) 30.7 SECONDS (9.0-12.0)
[2016-09-28 14:38] LABS: BLOOD UREA NITROGEN 25 mg/dl (7-18); BUN/CREATININE RATIO 16.4 (10-20); CALCIUM 9.4 mg/dl (8.5-10.1); CARBON DIOXIDE 33 mmol/L (21-32); CHLORIDE 101 mmol/L (98-107); GLUCOSE 84 mg/dl (70-99); POTASSIUM 3.9 mmol/L (3.5-5.1); SODIUM 140 mmol/L (136-145)
== END | disposition home or self-care (01) ==
LOC: C.LABOAKS 15:21
PROVIDERS: ATTEND Physician Assistant
DX: I50.9 Heart failure, unspecified (principal); N18.4 Chronic kidney disease, stage 4 (severe); E87.6 Hypokalemia

== ENCOUNTER → 2016-10-26 | Outpatient (CLI) | payer OTHER ==
[2016-10-26 13:01] LABS: INR 3.9 (0.9-1.1)
== END | disposition home or self-care (01) ==
LOC: C.LABOAKS 15:21
PROVIDERS: ATTEND Pharmacist Pharmacotherapy
DX: Z51.81 Encounter for therapeutic drug level monitoring (principal); Z79.01 Long term (current) use of anticoagulants

== ENCOUNTER → 2016-11-09 | Outpatient (CLI) | payer OTHER ==
[2016-11-09 13:27] LABS: PROTHROMBIN TIME (PATIENT) 43.3 SECONDS (9.0-12.0)
[2016-11-09 13:36] LABS: INR 3.8 (0.9-1.1)
--- NOTE | 2016-11-19 08:24 | CODING QUERY NO DIAGNOSIS ---
TREATMENT RENDERED WITHOUT A DIAGNOSIS 33 To promote full compliance with coding requirements relating to patient care, physician participation is requested in all cases of care transitions manager uncertainty. Please assist us with providing a diagnosis/symptom for the test(s) below: A diagnosis/symptom was not documented on your Order. A valid diagnosis/symptom is required to bill all insurances. Please remember that we are unable to code a diagnosis of rule out, probable, possible, questionable, or suspected. DOS 11/09/16 Tests that require a diagnosis: * PROTHROMBIN TIME DIAGNOSIS: Provider Signature: Date: Thank you Zeina Cowart [email or web address] Information Management Once completed, please kindly fax back to [phone] For questions please call [phone]
== END | disposition home or self-care (01) ==
LOC: C.LABOAKS 10:33
PROVIDERS: ATTEND Pharmacist Pharmacotherapy
DX: I48.2 Chronic atrial fibrillation (principal)

== ENCOUNTER → 2016-11-23 | Outpatient (CLI) | payer OTHER ==
[2016-11-23 12:40] LABS: INR 2.3 (0.9-1.1); PROTHROMBIN TIME (PATIENT) 25.5 SECONDS (9.0-12.0)
--- NOTE | 2016-12-17 11:43 | CODING QUERY NO DIAGNOSIS ---
TREATMENT RENDERED WITHOUT A DIAGNOSIS To promote full compliance with coding requirements relating to patient care, physician participation is requested in all cases of home theater installer uncertainty. Please assist us with providing a diagnosis/symptom for the test(s) below: A diagnosis/symptom was not documented on your Order. A valid diagnosis/symptom is required to bill all insurances. Please remember that we are unable to code a diagnosis of rule out, probable, possible, questionable, or suspected. Tests that require a diagnosis: DOS: 11/23/16 * PT/INR DIAGNOSIS: Provider Signature: Date: Thank you iGna Irving [place] Information Management Once completed, please kindly fax back to [phone] For questions please call [phone]
== END | disposition home or self-care (01) ==
LOC: C.LABOAKS 15:33
PROVIDERS: ATTEND Family Medicine
DX: E78.5 Hyperlipidemia, unspecified (principal); E03.9 Hypothyroidism, unspecified; Z79.01 Long term (current) use of anticoagulants

== ENCOUNTER → 2016-12-07 | Outpatient (CLI) | payer OTHER ==
[2016-12-07 12:35] LABS: INR 2.3 (0.9-1.1); PROTHROMBIN TIME (PATIENT) 25.2 SECONDS (9.0-12.0)
[2016-12-07 13:12] LABS: ALT/SGPT 16 U/L (12-78); AST/SGOT 21 U/L (15-37); BLOOD UREA NITROGEN 32 mg/dl (7-18); BUN/CREATININE RATIO 18.8 (10-20); CALCIUM 9.9 mg/dl (8.5-10.1); CARBON DIOXIDE 31 mmol/L (21-32); CHLORIDE 101 mmol/L (98-107); GLUCOSE 84 mg/dl (70-99); POTASSIUM 3.8 mmol/L (3.5-5.1); SODIUM 139 mmol/L (136-145)
[2016-12-07 13:31] LABS: ALB/GLOB RATIO 1.1 (0.9-2); ALKALINE PHOSPHATASE 70 U/L (45-117); URIC ACID 8.9 mg/dl (2.6-7.2)
== END | disposition home or self-care (01) ==
LOC: C.LABOAKS 15:32
PROVIDERS: ATTEND Family Medicine
DX: E78.5 Hyperlipidemia, unspecified (principal); E03.9 Hypothyroidism, unspecified; E79.0 Hyperuricemia without signs of inflammatory arthritis and tophaceous disease; Z79.01 Long term (current) use of anticoagulants

== ENCOUNTER → 2017-02-01 | Outpatient (CLI) | payer OTHER ==
[2017-02-01 09:09] LABS: INR 3.5 (0.9-1.1); PROTHROMBIN TIME (PATIENT) 39.1 SECONDS (9.0-12.0)
== END ==
LOC: C.LABOAKS 08:40
PROVIDERS: ATTEND Family Medicine
DX: Z79.01 Long term (current) use of anticoagulants (principal)

== ENCOUNTER → 2017-02-22 | Outpatient (CLI) | payer OTHER ==
[2017-02-22 12:39] LABS: INR 1.9 (0.9-1.1)
--- NOTE | 2017-03-11 09:02 | CODING QUERY NO DIAGNOSIS ---
TREATMENT RENDERED WITHOUT A DIAGNOSIS : 1935 To promote full compliance with coding requirements relating to patient care, physician participation is requested in all cases of market risk analyst uncertainty. Please assist us with providing a diagnosis/symptom for the test(s) below: A diagnosis/symptom was not documented on your Order. A valid diagnosis/symptom is required to bill all insurances. Please remember that we are unable to code a diagnosis of rule out, probable, possible, questionable, or suspected. Tests that require a diagnosis: DOS: 02/22/17 * PROTHROMBIN TIME PRO DIAGNOSIS: Provider Signature: Date: Thank you Anuradha Flores [employer] Information Management Once completed, please kindly fax back to [phone] For questions please call [phone]
== END | disposition home or self-care (01) ==
LOC: C.LABOAKS 12:21
PROVIDERS: ATTEND Family Medicine
DX: I48.91 Unspecified atrial fibrillation (principal)

== ENCOUNTER → 2017-03-08 | Outpatient (CLI) | payer OTHER ==
[2017-03-08 12:46] LABS: INR 1.7 (0.9-1.1); PROTHROMBIN TIME (PATIENT) 18.9 SECONDS (9.0-12.0)
--- NOTE | 2017-03-22 13:49 | CODING QUERY NO DIAGNOSIS ---
: 1935 TREATMENT RENDERED WITHOUT A DIAGNOSIS To promote full compliance with coding requirements relating to patient care, physician participation is requested in all cases of dairy processing equipment operator uncertainty. Please assist us with providing a diagnosis/symptom for the test(s) below: A diagnosis/symptom was not documented on your Order. A valid diagnosis/symptom is required to bill all insurances. Please remember that we are unable to code a diagnosis of rule out, probable, possible, questionable, or suspected. Tests that require a diagnosis: DOS: 03/08/17 * PROTHROMBIN TIME PROFILE DIAGNOSIS: Provider Signature: Date: Thank you Constance Caputo Health Information Management Once completed, please kindly fax back to [phone] For questions please call [phone]
== END | disposition home or self-care (01) ==
LOC: C.LABOAKS 12:21
PROVIDERS: ATTEND Family Medicine
DX: I48.91 Unspecified atrial fibrillation (principal); Z51.81 Encounter for therapeutic drug level monitoring; Z79.01 Long term (current) use of anticoagulants

== ENCOUNTER → 2017-04-12 | Outpatient (CLI) | payer OTHER ==
[~2017-04-12] MED LIST changes: +ACET-1256 PO; +BENZ100C84 PO; +BISA10SU3 PR; +CEPH500C2 PO; +CIPR-255 PO; +DOXY100C76 PO; +IPRA-64 INH; -IPRASOL4 INH; +LEVO88TA3 PO; +METR-163 PO; +MOML PO; +OXYC-57 PO; +POTA-639 PO; -POTA20TA16 PO; +PRED10TA PO; +PRLSR20 PO; +SODI1ENE PR; +SPIR25TA5 PO; -SPIR25TA89 PO; +WARF2.5T8 PO; +WARF2TAB8 PO; +WARF5TAB7 PO
[2017-04-12 12:52] LABS: INR 1.7 (0.9-1.1)
== END | disposition home or self-care (01) ==
LOC: C.LABOAKS 11:27
PROVIDERS: ATTEND Family Medicine
DX: I48.2 Chronic atrial fibrillation (principal)

== ENCOUNTER → 2017-04-26 | Outpatient (CLI) | payer OTHER ==
[~2017-04-26] MED LIST changes: -ACET-1256 PO; -BENZ100C84 PO; -BISA10SU3 PR; -CEPH500C2 PO; -CIPR-255 PO; -DOXY100C76 PO; -IPRA-64 INH; +IPRASOL4 INH; -LEVO88TA3 PO; -METR-163 PO; -MOML PO; -OXYC-57 PO; -POTA-639 PO; +POTA20TA16 PO; -PRED10TA PO; -PRLSR20 PO; -SODI1ENE PR; -SPIR25TA5 PO; +SPIR25TA89 PO; -WARF2.5T8 PO; -WARF2TAB8 PO; -WARF5TAB7 PO
[2017-04-26 12:51] LABS: INR 1.8 (0.9-1.1)
== END | disposition home or self-care (01) ==
LOC: C.LABOAKS 09:48
PROVIDERS: ATTEND Pharmacist
DX: Z79.01 Long term (current) use of anticoagulants (principal)

== ENCOUNTER → 2017-05-10 | Outpatient (CLI) | payer OTHER ==
[2017-05-10 12:47] LABS: INR 1.6 (0.9-1.1)
== END | disposition home or self-care (01) ==
LOC: C.LABOAKS 10:58
PROVIDERS: ATTEND Family Medicine
DX: I48.2 Chronic atrial fibrillation (principal)

== ENCOUNTER → 2017-05-24 | Outpatient (CLI) | payer OTHER ==
[2017-05-24 13:10] LABS: INR 3.5 (0.9-1.1)
== END ==
LOC: C.LABOAKS 15:34
PROVIDERS: ATTEND Family Medicine
DX: I48.91 Unspecified atrial fibrillation (principal)

== ENCOUNTER → 2017-06-07 | Outpatient (CLI) | payer OTHER ==
[2017-06-07 12:52] LABS: INR 3.9 (0.9-1.1)
== END | disposition home or self-care (01) ==
LOC: C.LABOAKS 12:40
PROVIDERS: ATTEND Family Medicine
DX: I48.91 Unspecified atrial fibrillation (principal)

== ENCOUNTER 2017-06-15 12:20 | Emergency (ER) | payer OTHER ==
[~2017-06-15] VITALS: Ht 162.6 cm; Wt 78.0 kg
[2017-06-15 12:32] VITALS: TEMP 36.8; Ht 162.6 cm; Wt 78.0 kg
[2017-06-15] MEDS ORDERED: DOXY100C76 PO (12:36)
[2017-06-15] MEDS ORDERED: ACET-1256 PO (12:36)
[2017-06-15] MEDS ORDERED: PRED10TA PO (12:36)
[2017-06-15] MEDS ORDERED: WARF2TAB8 PO (12:36)
--- NOTE | 2017-06-15 13:04 | EMERGENCY ROOM VISIT NOTE ---
History Report prepared by Rufina: Loyd Simms Under the Supervision of: Dr. Tereso Terrazas M.D. First contact with patient: 12:54 Chief Complaint: VOMITING Stated Complaint: FLU LIKE SYMPTOMS Nursing Triage Summary: Patient to ED via EMS from the [facility], patient diagnosed with flu one week ago and given tamiflu, patient had one episode of emesis today, states "I feel fine, they made me eat some strawberries when I wasn't hungry and I threw a little up , so they made me come in, I didn't want to." Patient denies complaints at time of triage History of Present Illness The patient is an 82 year old white female with a past medical history of atrial fibrillation, heart failure, HLD, hypothyroidism, GERD, COPD, CKD who presents to the ED from the [facility] with a cc of an episode of vomiting this morning. Negative abdominal pain, chest pain, shortness of breath, or any other complaints. She states that she was diagnosed with influenza a week ago and was given Tamiflu. She notes that she was forced to eat some strawberries this morning and was not hungry so she vomited up the food a little, so she was brought here. The patient adds that she wears 2 liters of oxygen at the [facility]. She notes no recent known sick contacts. The last time that she smoked was years ago. Source of History: patient Onset: This morning Position: other (global) Symptom Intensity: 1 episode Quality: other (vomiting) Timing: other (episode) Associated Symptoms: No chest pain, No SOB, No abdominal pain Note: Denies any other complaints. Review of Systems See HPI for pertinent positives and negatives. A total of ten systems were reviewed and were otherwise negative. 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 Surgical Problems: (1) History of appendectomy (2) History of cholecystectomy (3) History of hysterectomy (4) History of knee replacement (5) History of lumbar laminectomy for spinal cord decompression (6) History of tonsillectomy (7) History of total right hip arthroplasty (8) History of tubal ligation (9) S/P placement of cardiac pacemaker (10) S/P tonsillectomy and adenoidectomy Family History No pertinent family history Social History Smoking Status: Former Smoker Alcohol Use: none Drug Use: none Marital Status: Housing Status: lives alone Occupation Status: retired Current/Historical Medications Scheduled Allopurinol (Zyloprim), 50 MG PO DAILY Aspirin (Aspirin 81), 1 TAB PO DAILY Calcitriol (Rocaltrol Cap), 0.25 MCG PO DAILY Calcium/Vitamin D (Os-Tesfaye 500 Plus D), 1 TAB PO DAILY Docusate Sodium (Docusate Sodium), 1 CAP PO BID Doxycycline Monohydrate (Monodox), 100 MG PO BID Fluticasone Prop/Salmeterol (Advair Diskus 250/50 60 Dose), 1 PUFF INH BID Furosemide (Furosemide), 1 TAB PO BID Ipratropium-Albuterol (Duoneb), 1 TREATMENT INH QID Metoprolol Tartrate (Lopressor) (Lopressor), 12.5 MG PO BID Nitroglycerin (Nitrostat), 0.4 MG UT PRN Pantoprazole (Protonix), 40 MG PO DAILY Potassium Ext Rel (Klor-Con), 20 MEQ PO DAILY Prednisone Tab (Prednisone), 10 MG PO DIRECTED Spironolactone (Aldactone), 12.5 MG PO DAILY Warfarin Sod (Jantoven), 2 MG PO 2XWK Warfarin Sodium (Warfarin Sodium), 4 MG PO DAILY Scheduled PRN Acetaminophen (Tylenol), 500 MG PO Q4 PRN for Pain or Fever Albuterol Hfa (Ventolin Hfa), 2 PUFFS INH Q4 PRN for SOB/Wheezing Senna/Docusate Sod (Senokot S), 1 TAB PO DAILY PRN for Constipation Tramadol (Ultram), 50 MG PO Q6 PRN for Pain Allergies Coded Allergies: Oxycodone (Verified Adverse Reaction, Intermediate, ALTERED MENTAL STATUS , N/V, 07/17/15) Alcohol (Verified Adverse Reaction, Mild, PASSES OUT WITH A SIP, 07/17/15) Codeine (Verified Adverse Reaction, Mild, N/V - RECEIVED MORPHINE ON PRIOR ADMIT W/O RXN, 07/17/15) PER PT: PASSED OUT AFTER CODEINE 30YRS AGO. Physical Exam Vital Signs Date Time Temp Pulse Resp B/P (MAP) Pulse Ox O2 Delivery O2 Flow Rate FiO2 06/15/17 14:50 75 23 147/85 96 Nasal Cannula 2.0 06/15/17 12:32 36.8 85 20 134/71 97 Nasal Cannula 2.0 06/15/17 12:30 80 Physical Exam GENERAL: Awake, alert, well-appearing, NAD, nasal cannula in place. HENT: Normocephalic, atraumatic. EYES: Normal conjunctiva. Sclera non-icteric. NECK: Supple. No nuchal rigidity. FROM. RESPIRATORY: CTAB, no rhonchi, wheezing, crackles CARDIAC: Device in left chest. RRR, no MRG ABDOMEN: Soft, NTND, BS+ MSK: No chest wall TTP. Chronic venous stasis changes to lower extremities. NEURO: GCS 15, CN 2-12 intact, moves all 4s on command SKIN: No rash or jaundice noted. Medical Decision & Procedures ER Provider Diagnostic Interpretation: X-ray: Per my interpretation, radiologist review. ABDOMEN 2VIEW W/PA CHEST RTN CLINICAL HISTORY: Abdominal pain COMPARISON STUDY: Chest x-ray dated 07/08/2016 FINDINGS: The cardiac images so contours remain stable. There is no focal pulmonary consolidation. As a left subclavian dual-chamber central venous pacemaker present. There are no abnormally dilated loops of large or small bowel. There are no transition zones indicate bowel obstruction. There are surgical clips within the right upper quadrant consistent with a prior cholecystectomy. There are vascular calcifications within the aorta. There are bilateral total hip arthroplasties. IMPRESSION: No evidence of bowel obstruction. No evidence of free air. Electronically signed by: Joshua Devi M.D. 06/15/2017 2:08 PM Dictated Date/Time: 06/15/2017 2:07 PM Laboratory Results 06/15/17 13:28 Red Blood Count 5.09, Mean Corpuscular Volume 87.2, Mean Corpuscular Hemoglobin 28.5, Mean Corpuscular Hemoglobin Concent 32.7, Mean Platelet Volume 10.7, Neutrophils (%) (Auto) 71.8, Lymphocytes (%) (Auto) 14.3, Monocytes (%) (Auto) 10.0, Eosinophils (%) (Auto) 3.2, Basophils (%) (Auto) 0.3, Neutrophils # (Auto ) 6.43, Lymphocytes # (Auto) 1.28, Monocytes # (Auto) 0.90, Eosinophils # (Auto ) 0.29, Basophils # (Auto) 0.03 06/15/17 13:28 Test 06/15/17 13:15 06/15/17 13:28 Urine Color YELLOW Urine Appearance CLEAR (CLEAR) Urine pH 7.5 (4.5-7.5) Urine Specific [place] 1.008 (1.000-1.030) Urine Protein NEG (NEG) Urine Glucose (UA) NEG (NEG) Urine Ketones NEG (NEG) Urine Occult Blood NEG (NEG) Urine Nitrite NEG (NEG) Urine Bilirubin NEG (NEG) Urine Urobilinogen NEG (NEG) Urine Leukocyte Esterase NEG (NEG) White Blood Count 8.97 K/uL (4.8-10.8) Red Blood Count 5.09 M/uL (4.2-5.4) Hemoglobin 14.5 g/dL (12.0-16.0) Hematocrit 44.4 % (37-47) Mean Corpuscular Volume 87.2 fL (80-100) Mean Corpuscular Hemoglobin 28.5 pg (25-34) Mean Corpuscular Hemoglobin Concent 32.7 g/dl (32-36) Platelet Count 201 K/uL (130-400) Mean Platelet Volume 10.7 fL (7.4-10.4) Neutrophils (%) (Auto) 71.8 % Lymphocytes (%) (Auto) 14.3 % Monocytes (%) (Auto) 10.0 % Eosinophils (%) (Auto) 3.2 % Basophils (%) (Auto) 0.3 % Neutrophils # (Auto) 6.43 K/uL (1.4-6.5) Lymphocytes # (Auto) 1.28 K/uL (1.2-3.4) Monocytes # (Auto) 0.90 K/uL (0.11-0.59) Eosinophils # (Auto) 0.29 K/uL (0-0.5) Basophils # (Auto) 0.03 K/uL (0-0.2) RDW Standard Deviation 48.1 fL (36.4-46.3) RDW Coefficient of Variation 15.1 % (11.5-14.5) Immature Granulocyte % (Auto) 0.4 % Immature Granulocyte # (Auto) 0.04 K/uL (0.00-0.02) Anion Gap 5.0 mmol/L (3-11) Est Creatinine Clear Calc Drug Dose 28.8 ml/min Estimated GFR () 37.6 Estimated GFR (Non- 32.4 BUN/Creatinine Ratio 29.3 (10-20) Calcium Level 10.0 mg/dl (8.5-10.1) Total Bilirubin 0.9 mg/dl (0.2-1) Direct Bilirubin 0.3 mg/dl (0-0.2) Aspartate Amino Transf (AST/SGOT) 14 U/L (15-37) Alanine Aminotransferase (ALT/SGPT) 17 U/L (12-78) Alkaline Phosphatase 92 U/L (45-117) Troponin I < 0.015 ng/ml (0-0.045) Total Protein 7.4 gm/dl (6.4-8.2) Albumin 3.5 gm/dl (3.4-5.0) Lipase 53 U/L (73-393) Laboratory results reviewed by me Medications Administered Medications (Trade) Dose Ordered Sig/Terence Route Start Time Stop Time Status Last Admin Dose Admin Sodium Chloride 500 ml @ 999 mls/hr Q31M STAT IV 06/15/17 13:07 06/15/17 13:37 DC 06/15/17 13:52 999 MLS/HR Ondansetron HCl (Zofran Inj) 4 mg NOW STAT IV 06/15/17 13:07 06/15/17 13:09 DC 06/15/17 13:52 4 MG ECG Per My Interpretation Indication: vomiting Rate (beats per minute): 71 Rhythm: other (v-paced) Findings: LBBB, Q waves (throughout), other (wide QRS, ) Comparison ECG Date: no prior available ED Course 1300: The patient was evaluated in room A12B. A complete history and physical exam was performed. 1450: I reevaluated the patient and she is resting. Discussed results and discharge instructions: she verbalized understanding and agreement. The patient is ready for discharge. Medical Decision The patient is an 82 year old white female with a past medical history of atrial fibrillation, heart failure, HLD, hypothyroidism, GERD, COPD, CKD who presents to the ED from the [facility] with a cc of an episode of vomiting this morning. Negative abdominal pain, chest pain, shortness of breath, or any other complaints. Differential diagnosis: Etiologies such as gastroenteritis, food borne illness, infections, appendicitis , diverticulitis, inflammatory bowel disease, obstruction, GI bleed, biliary pathology, as well as others were entertained. Patient was seen and evaluated at the bedside. Patient was referred here after she states that she was given some strawberries at which point she vomited. Patient states that she was not hungry but she was told that she needed to eat them. Patient denies any acute symptom complaints. Patient does use oxygen as needed. Patient has no abdominal pain, chest pain, nausea, vomiting. Patient did have blood work completed, EKG, chest x-ray. Patient's plain film unremarkable. EKG shows a V paced rhythm. Patient troponin negative. Patient' s of the blood work fairly unremarkable. Reassessment of the patient, the patient is able to tolerate p.o. and is feeling improved. Given that the patient was told to eat food that she did not want to eat and then had an episode of emesis and did not want to be here I do not suspect atypical chest pain. The patient has been able to tolerate p.o. here in the department and patient has had a recent bowel movement. Patient shows no evidence of obstruction. Patient has no abdominal tenderness to palpation. I do not believe that she requires any sort of CT of the abdomen and pelvis. Patient was given strict follow-up, discharge, and return precautions. All questions were answered. Patient was deemed suitable for outpatient follow-up at this time. Patient agreed with the plan of care and was safely discharged home. Medication Reconcilliation Current Medication List: was personally reviewed by me Blood Pressure Screening Patient's blood pressure: Elevated blood pressure Blood pressure disposition: Elevated BP felt to be situational Impression Primary Impression: Vomiting Scribe Attestation The scribe's documentation has been prepared under my direction and personally reviewed by me in its entirety. I confirm that the note above accurately reflects all work, treatment, procedures, and medical decision making performed by me. Departure Information Dispostion Home / Self-Care Referrals [facility] (PCP) Patient Instructions ED Nausea Vomiting, My [facility] Additional Instructions Please return to the emergency department if you have worsening or recurrent symptoms not amenable to at-home treatment. Please call for a follow-up appointment with her primary care physician. Please take your medications as prescribed. If you have other concerns and/or complaints please feel free to also call your primary care physician's office or return the ED for further evaluation, management, and treatment. Take your medications as prescribed. If taking an antibiotic consider taking a probiotic and/or eating yogurt, but at the least, please take with food as it can cause upset stomach. If culture results are not available at discharge, if they are positive for concern of infection, you will be informed of the results as soon as they are available. If you were seen between 11pm and 7AM all radiology reads will be re-read by our in house staff. If any major discrepancies are discovered, you will be notified. You have been examined and treated today on an emergency basis only. This is not a substitute for, or an effort to provide, complete comprehensive medical care. It is impossible to recognize and treat all injuries or illnesses in a single emergency department visit. It is therefore important that you follow up closely with [facility], your PCP, and/or your specialist(s). Call as soon as possible for an appointment. Thank you for your time and consideration. I look forward to speaking with you again soon. Please don't hesitate to call us if you have any questions. Problem Qualifiers Primary Impression: Vomiting Vomiting type: unspecified Vomiting Intractability: unspecified Nausea presence: unspecified Qualified Codes: R11.10 - Vomiting, unspecified
[2017-06-15] MEDS ORDERED: SODIUM CHLORIDE 0.9% 1000ML 500 ML IV STA (13:07)
[2017-06-15] MEDS ORDERED: ONDANSETRON INJ 2 MG/ML 2 ML VIAL IV STA (13:07)
[2017-06-15 13:39] LABS: BASO % 0.3 %; BASO ABS # 0.03 K/uL (0-0.2); EOS % 3.2 %; EOS ABS # 0.29 K/uL (0-0.5); HEMATOCRIT 44.4 % (37-47); HEMOGLOBIN 14.5 g/dL (12.0-16.0); IG# 0.04 K/uL (0.00-0.02); LYMPH % 14.3 %; LYMPH ABS # 1.28 K/uL (1.2-3.4); MEAN CELL VOLUME 87.2 fL (80-100); MEAN CORPUSCULAR HEMOGLOBIN 28.5 pg (25-34); MEAN CORPUSCULAR HGB CONC 32.7 g/dl (32-36); MEAN PLATELET VOLUME 10.7 fL (7.4-10.4); NEUT % 71.8 %; NEUT ABS # 6.43 K/uL (1.4-6.5); PLATELET COUNT 201 K/uL (130-400); RED CELL DISTRIBUTION WIDTH CV 15.1 % (11.5-14.5); RED CELL DISTRIBUTION WIDTH SD 48.1 fL (36.4-46.3); WHITE BLOOD COUNT 8.97 K/uL (4.8-10.8)
[2017-06-15 14:03] LABS: ALBUMIN 3.5 gm/dl (3.4-5.0); ALT/SGPT 17 U/L (12-78); AST/SGOT 14 U/L (15-37); BLOOD UREA NITROGEN 43 mg/dl (7-18); CARBON DIOXIDE 36 mmol/L (21-32); CREATININE 1.47 mg/dl (0.60-1.20); GLUCOSE 90 mg/dl (70-99); LIPASE 53 U/L (73-393); POTASSIUM 3.5 mmol/L (3.5-5.1); SODIUM 137 mmol/L (136-145)
[2017-06-15 14:08] LABS: ALKALINE PHOSPHATASE 92 U/L (45-117); TOTAL PROTEIN 7.4 gm/dl (6.4-8.2)
--- NOTE | 2017-06-15 14:10 | DIAGNOSTIC IMAGING REPORT ---
ABDOMEN 2VIEW W/PA CHEST RTN CLINICAL HISTORY: Abdominal pain COMPARISON STUDY: Chest x-ray dated 07/08/2016 FINDINGS: The cardiac images so contours remain stable. There is no focal pulmonary consolidation. As a left subclavian dual-chamber central venous pacemaker present. There are no abnormally dilated loops of large or small bowel. There are no transition zones indicate bowel obstruction. There are surgical clips within the right upper quadrant consistent with a prior cholecystectomy. There are vascular calcifications within the aorta. There are bilateral total hip arthroplasties. IMPRESSION: No evidence of bowel obstruction. No evidence of free air. Electronically signed by: Joshua Devi M.D. 06/15/2017 2:08 PM Dictated Date/Time: 06/15/2017 2:07 PM
[2017-06-15 16:33] VITALS: BP 146/72; PULSE 81; O2SAT 98
== END 2017-06-15 16:35 | disposition home or self-care (01) ==
LOC: EDBD 12:20 → C.EDA 12:21
DX: R11.10 Vomiting, unspecified (principal); I48.91 Unspecified atrial fibrillation; I50.9 Heart failure, unspecified; E78.5 Hyperlipidemia, unspecified; E03.9 Hypothyroidism, unspecified; K21.9 Gastro-esophageal reflux disease without esophagitis; J44.9 Chronic obstructive pulmonary disease, unspecified; N18.9 Chronic kidney disease, unspecified; M19.90 Unspecified osteoarthritis, unspecified site; I49.5 Sick sinus syndrome; Z95.0 Presence of cardiac pacemaker; Z96.641 Presence of right artificial hip joint; Z96.659 Presence of unspecified artificial knee joint; Z87.891 Personal history of nicotine dependence; Z79.82 Long term (current) use of aspirin; Z79.01 Long term (current) use of anticoagulants; Z79.899 Other long term (current) drug therapy; Z88.5 Allergy status to narcotic agent; Z91.048 Other nonmedicinal substance allergy status

== ENCOUNTER → 2017-06-21 | Outpatient (CLI) | payer OTHER ==
[~2017-06-21] MED LIST changes: +ACET-1256 PO; -BENZ100C18 PO; +DOXY100C76 PO; -LEVO88TA PO; +PRED10TA PO; -WARF-286 PO; +WARF2TAB8 PO
[2017-06-21 13:12] LABS: INR 4.7 (0.9-1.1)
== END | disposition home or self-care (01) ==
LOC: C.LABOAKS 12:41
PROVIDERS: ATTEND Family Medicine
DX: I48.91 Unspecified atrial fibrillation (principal)

== ENCOUNTER → 2017-06-28 | Outpatient (CLI) | payer OTHER ==
[2017-06-28 13:04] LABS: INR 2.8 (0.9-1.1)
== END | disposition home or self-care (01) ==
LOC: C.LABOAKS 12:00
PROVIDERS: ATTEND Family Medicine
DX: I48.2 Chronic atrial fibrillation (principal)

== ENCOUNTER → 2017-07-12 | Outpatient (CLI) | payer OTHER ==
[2017-07-12 13:43] LABS: INR 2.6 (0.9-1.1)
== END | disposition home or self-care (01) ==
LOC: C.LABOAKS 11:14
PROVIDERS: ATTEND Pharmacist Pharmacotherapy
DX: I48.91 Unspecified atrial fibrillation (principal)

== ENCOUNTER → 2017-07-26 | Outpatient (CLI) | payer OTHER ==
[~2017-07-26] MED LIST changes: +POTA-639 PO; -POTA20TA16 PO
[2017-07-26 13:11] LABS: INR 2.3 (0.9-1.1)
== END | disposition home or self-care (01) ==
LOC: C.LABOAKS 11:54
PROVIDERS: ATTEND Pharmacist Pharmacotherapy
DX: Z79.01 Long term (current) use of anticoagulants (principal)

== ENCOUNTER → 2017-08-23 | Outpatient (CLI) | payer OTHER ==
[~2017-08-23] MED LIST changes: +BENZ100C84 PO; +LEVO88TA3 PO
[2017-08-23 14:08] LABS: INR 1.6 (0.9-1.1)
== END | disposition home or self-care (01) ==
LOC: C.LABOAKS 16:56
PROVIDERS: ATTEND Pharmacist Pharmacotherapy
DX: I48.91 Unspecified atrial fibrillation (principal)

== ENCOUNTER 2017-08-29 20:45 | Observation (INO) | payer OTHER ==
[~2017-08-29] VITALS: Ht 165.1 cm; Wt 78.5 kg
[~2017-08-29 20:45] MED LIST changes: -BENZ100C84 PO; -LEVO88TA3 PO
[2017-08-29] MEDS ORDERED: PIPERACILLIN/TAZOBACTAM 4.5 GM/100ML D5W IV STA (21:20)
[2017-08-29] MEDS ORDERED: ALBUT/IPRATROP 3MG/0.5MG NEB 3 ML VIAL INH STA (21:20)
[2017-08-29] MEDS ORDERED: NITROGLYCERIN 2% OINTMENT 30GM TUBE EXT ONE (21:30)
--- NOTE | 2017-08-29 21:33 | EMERGENCY ROOM VISIT NOTE ---
History Report prepared by Vanessaibalina: Yasmeen Cooney Under the Supervision of: Dr. Lenin Lincoln M.D. First contact with patient: 21:14 Chief Complaint: CARDIAC ASSESSMENT Stated Complaint: CHEST PAIN/SOB Nursing Triage Summary: Pt is alert and oriented to person and place. Pt reports chest pain, difficulty breathing, and cough that started today. Pt reports a productive cough.Hx COPD, pt on 2L NC at all times. Upon arrival asked patient if she was having any pain stated, "No pain in my chest anymore, but I have pain somewhere else." A few minutes later asked patient again her pain scale and where pain is located stated, "8/10 in my chest." Pt given 4 baby aspirin and duoneb enroute. History of Present Illness The patient is an 82 year old female who presents to the Emergency Room with complaints of needing a cardiac assessment. She was brought to the ED via EMS from the [place], where she lives in the half-way. She reports throughout the day, she has become increasingly short of breath and developed chest pain. She rates her pain as a 10/10 in severity. Her pain is worsened by breathing and coughing. She complains of a productive cough and admits to a history of COPD, for which she wears 2L NC at all times. She was given a DuoNeb and Aspirin in the field which provided minimal relief. The patient states she has had a previous [place]. She denies any nausea or vomiting. She reports her legs have been getting increasingly red for the past 1 week. She is on daily Coumadin and has a pacemaker in place. Source of History: patient Onset: earlier today Position: chest Timing: worsening Modifying Factors (Relieving): oxygen, other (DuoNeb, Aspirin) Associated Symptoms: + cough, No nausea, No vomiting Review of Systems See HPI for pertinent positives & negatives. A total of 10 systems reviewed and were otherwise negative. 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 Surgical Problems: (1) History of appendectomy (2) History of cholecystectomy (3) History of hysterectomy (4) History of knee replacement (5) History of lumbar laminectomy for spinal cord decompression (6) History of tonsillectomy (7) History of total right hip arthroplasty (8) History of tubal ligation (9) S/P placement of cardiac pacemaker (10) S/P tonsillectomy and adenoidectomy Family History No pertinent family history Social History Smoking Status: Former Smoker Alcohol Use: none Drug Use: none Marital Status: Housing Status: lives alone Occupation Status: retired Current/Historical Medications Scheduled Allopurinol (Zyloprim), 50 MG PO DAILY Aspirin (Aspirin 81), 81 MG PO DAILY Calcium/Vitamin D (Os-Tesfaye 500 Plus D), 1 TAB PO DAILY Docusate Sodium (Docusate Sodium), 100 MG PO BID Fluticasone Prop/Salmeterol (Advair Diskus 250/50 60 Dose), 1 PUFF INH BID Furosemide (Furosemide), 80 TAB PO BID Levothyroxine Sodium (Levothyroxine Sodium), 88 MCG PO DAILY Metoprolol Tartrate (Lopressor) (Lopressor), 12.5 MG PO BID Nitroglycerin (Nitrostat), 0.4 MG UT PRN Pantoprazole (Protonix), 40 MG PO DAILY Potassium Ext Rel (Klor-Con), 20 MEQ PO DAILY Spironolactone (Aldactone), 12.5 MG PO DAILY Warfarin Sod (Jantoven), 2 MG PO 3XWK Warfarin Sodium (Warfarin Sodium), 4 MG PO DAILY Scheduled PRN Acetaminophen (Tylenol), 500 MG PO Q4 PRN for Pain or Fever Albuterol Hfa (Ventolin Hfa), 2 PUFFS INH Q4 PRN for SOB/Wheezing Benzonatate (Tessalon Perles), 100 MG PO TID PRN for Cough Ipratropium-Albuterol (Duoneb), 3 ML INH Q4H PRN for SOB/Wheezing Senna/Docusate Sod (Senokot S), 1 TAB PO DAILY PRN for Constipation Tramadol (Ultram), 50 MG PO Q6 PRN for Pain Allergies Coded Allergies: Oxycodone (Verified Adverse Reaction, Intermediate, ALTERED MENTAL STATUS , N/V, 07/17/15) Alcohol (Verified Adverse Reaction, Mild, PASSES OUT WITH A SIP, 07/17/15) Codeine (Verified Adverse Reaction, Mild, N/V - RECEIVED MORPHINE ON PRIOR ADMIT W/O RXN, 07/17/15) PER PT: PASSED OUT AFTER CODEINE 30YRS AGO. Physical Exam Vital Signs Date Time Temp Pulse Resp B/P (MAP) Pulse Ox O2 Delivery O2 Flow Rate FiO2 08/30/17 00:38 71 18 103/70 97 Room Air 08/30/17 00:25 78 08/29/17 22:39 71 26 107/66 97 Room Air 08/29/17 21:43 94 Nasal Cannula 2.0 08/29/17 20:56 Nasal Cannula 2.0 08/29/17 20:56 Nasal Cannula 2.0 08/29/17 20:56 37.3 86 24 124/100 97 Nasal Cannula 2.0 08/29/17 20:53 73 Physical Exam GENERAL: Patient is in no acute distress. HEENT: No acute trauma, normocephalic atraumatic, mucous membranes moist, no nasal congestion, no scleral icterus. NECK: No stridor, no adenopathy, no meningismus, trachea is midline. LUNGS: Clear to auscultation bilaterally, no wheeze, no rhonchi, breath sounds equal. CHEST: Tender across the anterior sternal chest wall. HEART: Without murmurs gallops or rubs, regular rate and rhythm. ABDOMEN: Soft, nontender, bowel sounds positive, no hernias, no peritonitis. EXTREMITIES: Mild bilateral pedal edema with bilateral LE erythema and warmth. No cyanosis, full range of motion of all the joints without pain or difficulty, no signs for acute trauma. NEUROLOGIC: Patient is slightly confused but moves all extremities. Awake and alert, no focal motor deficits, no speech slurring, she has constant movement of the head, neck and shoulders which she states is baseline. SKIN: No rash, no jaundice, no diaphoresis. Medical Decision & Procedures ER Provider Diagnostic Interpretation: Radiology results as stated below per my review and radiologist interpretation: CHEST ONE VIEW PORTABLE HISTORY: 82 years-old Female EVALUATE RESPIRATORY DISTRESS.DYSPNEA acute respiratory distress COMPARISON: Chest radiograph 06/15/2017 TECHNIQUE: Portable AP view of the chest FINDINGS: Cardiac silhouette is mildly enlarged. Left subclavian pacer is unchanged. No pneumothorax or large pleural effusion. No overt pulmonary edema. Linear subsegmental bibasilar opacities favor atelectasis. Severe osteoarthritis about the bilateral shoulders with degenerative changes noted within the spine. IMPRESSION: No acute process. The above report was generated using voice recognition software. It may contain grammatical, syntax or spelling errors. Electronically signed by: Osorio Foster M.D. 08/29/2017 9:55 PM Laboratory Results 08/29/17 21:34 Red Blood Count 4.17, Mean Corpuscular Volume 87.1, Mean Corpuscular Hemoglobin 27.8, Mean Corpuscular Hemoglobin Concent 32.0, Mean Platelet Volume 10.7, Neutrophils (%) (Auto) 75.5, Lymphocytes (%) (Auto) 8.9, Monocytes (%) (Auto) 12.5, Eosinophils (%) (Auto) 2.5, Basophils (%) (Auto) 0.3, Neutrophils # (Auto ) 5.83, Lymphocytes # (Auto) 0.69, Monocytes # (Auto) 0.96, Eosinophils # (Auto ) 0.19, Basophils # (Auto) 0.02 08/29/17 21:34 Test 08/29/17 21:34 White Blood Count 7.71 K/uL (4.8-10.8) Red Blood Count 4.17 M/uL (4.2-5.4) Hemoglobin 11.6 g/dL (12.0-16.0) Hematocrit 36.3 % (37-47) Mean Corpuscular Volume 87.1 fL (80-100) Mean Corpuscular Hemoglobin 27.8 pg (25-34) Mean Corpuscular Hemoglobin Concent 32.0 g/dl (32-36) Platelet Count 150 K/uL (130-400) Mean Platelet Volume 10.7 fL (7.4-10.4) Neutrophils (%) (Auto) 75.5 % Lymphocytes (%) (Auto) 8.9 % Monocytes (%) (Auto) 12.5 % Eosinophils (%) (Auto) 2.5 % Basophils (%) (Auto) 0.3 % Neutrophils # (Auto) 5.83 K/uL (1.4-6.5) Lymphocytes # (Auto) 0.69 K/uL (1.2-3.4) Monocytes # (Auto) 0.96 K/uL (0.11-0.59) Eosinophils # (Auto) 0.19 K/uL (0-0.5) Basophils # (Auto) 0.02 K/uL (0-0.2) RDW Standard Deviation 48.6 fL (36.4-46.3) RDW Coefficient of Variation 15.3 % (11.5-14.5) Immature Granulocyte % (Auto) 0.3 % Immature Granulocyte # (Auto) 0.02 K/uL (0.00-0.02) Prothrombin Time 21.7 SECONDS (9.0-12.0) Prothromb Time International Ratio 2.1 (0.9-1.1) Activated Partial Thromboplast Time 34.8 SECONDS (21.0-31.0) Partial Thromboplastin Ratio 1.3 Urine Color YELLOW Urine Appearance CLOUDY (CLEAR) Urine pH 6.5 (4.5-7.5) Urine Specific [place] 1.011 (1.000-1.030) Urine Protein NEG (NEG) Urine Glucose (UA) NEG (NEG) Urine Ketones NEG (NEG) Urine Occult Blood TRACE (NEG) Urine Nitrite POS (NEG) Urine Bilirubin NEG (NEG) Urine Urobilinogen NEG (NEG) Urine Leukocyte Esterase LARGE (NEG) Urine WBC (Auto) >30 /hpf (0-5) Urine RBC (Auto) 0-4 /hpf (0-4) Urine Hyaline Casts (Auto) 1-5 /lpf (0-5) Urine Epithelial Cells (Auto) 5-10 /lpf (0-5) Urine Bacteria (Auto) 1+ (NEG) Urine Pathogenic Casts /lpf (0) Anion Gap 7.0 mmol/L (3-11) Est Creatinine Clear Calc Drug Dose 27.1 ml/min Estimated GFR () 33.7 Estimated GFR (Non- 29.1 BUN/Creatinine Ratio 19.6 (10-20) Lactic Acid Level 2.2 mmol/L (0.4-2.0) Calcium Level 8.2 mg/dl (8.5-10.1) Magnesium Level 1.9 mg/dl (1.8-2.4) Total Bilirubin 0.5 mg/dl (0.2-1) Aspartate Amino Transf (AST/SGOT) 17 U/L (15-37) Alanine Aminotransferase (ALT/SGPT) 18 U/L (12-78) Alkaline Phosphatase 83 U/L (45-117) Troponin I < 0.015 ng/ml (0-0.045) Total Protein 6.3 gm/dl (6.4-8.2) Albumin 3.1 gm/dl (3.4-5.0) Globulin 3.2 gm/dl (2.5-4.0) Albumin/Globulin Ratio 1.0 (0.9-2) Laboratory results reviewed by me. Medications Administered Medications (Trade) Dose Ordered Sig/Terence Route Start Time Stop Time Status Last Admin Dose Admin Albuterol/ Ipratropium (Duoneb) 3 ml NOW STAT INH 08/29/17 21:20 08/29/17 21:24 DC 08/29/17 22:15 3 ML Piperacillin Sod/ Tazobactam Sod (Zosyn Iv) 4.5 gm NOW STAT IV 08/29/17 21:20 08/29/17 21:24 DC 08/29/17 22:15 4.5 GM Nitroglycerin (Nitroglycerin 2% Oint) 1 inch NOW ONCE EXT 08/29/17 21:30 08/29/17 21:31 DC 08/29/17 22:15 1 INCH Sodium Chloride 500 ml @ 999 mls/hr Q31M STAT IV 08/29/17 23:49 08/30/17 00:19 DC 08/29/17 23:49 999 MLS/HR ECG Per My Interpretation Indication: chest pain Rate (beats per minute): 72 Rhythm: other (ventricular pacemaker) Findings: other (No PVC, no ST elevation, baseline artifact) ED Course 2116: The patient was evaluated in room B11. A complete history and physical exam was performed. 2119: Zosyn 4.5 gm IV, DuoNeb 3 ml INH. 2129: Nitroglycerin 2% 1 inch EXT. 2244: I reevaluated the patient. She is resting comfortably. I discussed my recommendation she remain in the hospital for further evaluation and management and she verbalized complete understanding and agreement. 3: I discussed the patients case with Dr. Penn, [facility] Hospitalist. The patient will be further evaluated. 2334: Dr. Penn called and informed me he believes the patient is under the care of Dr. Morocho, and should be under the care of the [facility] Medicine team. 2345: I discussed the patients [facility] The patient will be further evaluated. Medical Decision The differential diagnoses considered include cellulitis, UTI, pneumonia, bronchitis, sepsis, pneumothorax, CHF, [place], electrolyte imbalance and dehydration. There is no leukocytosis or worrisome anemia. No significant electrolyte abnormality or kidney failure. No hepatitis. Lactic acid level is somewhat elevated, this is concerning for dehydration and/or infection. INR is therapeutic for someone using Coumadin. EKG shows a ventricular pacemaker. Cardiac enzyme testing 1 is not consistent with acute cardiac injury. Chest film does not show acute CHF or pneumothorax. There was no pneumonia. Urinalysis is suggestive of infection. Urine culture is pending. Blood cultures are pending. On exam, the patient appeared to have a bilateral lower extremity cellulitis. The patient received IV saline, she was given a DuoNeb. She received Nitropaste. She was given IV Zosyn as antibiotic coverage. The patient presents with some shortness of breath and chest pain. Workup here suggest a UTI and bilateral lower extremity cellulitis. This shortness of breath is likely from her COPD, the chest pain does seem reproducible and I think likely noncardiac. Further workup in the hospital is required. I spoke to the patient and case management. The on-call hospitalist was consulted. Medication Reconcilliation Current Medication List: was personally reviewed by me Blood Pressure Screening Patient's blood pressure: Normal blood pressure Blood pressure disposition: Did not require urgent referral Consults Time Called: 2239 Consulting Physician: Pj Rai [facility]ie Returned Call: [phone] I discussed the patients case with Pj Rai [facility]catie. The patient will be further evaluated. Additional Consults: Time Called: 2339 Consulted Physician: Dr. Gutierrez [facility] Returned Call: 7 Additional Comments: I discussed the [facility] The patient will be further evaluated. Impression Primary Impression: Anterior chest wall pain Additional Impressions: Lower extremity cellulitis UTI (urinary tract infection) Scribe Attestation The scribe's documentation has been prepared under my direction and personally reviewed by me in its entirety. I confirm that the note above accurately reflects all work, treatment, procedures, and medical decision making performed by me. Departure Information Dispostion Being Evaluated By Hospitalist Referrals The Vinod (PCP) Patient Instructions My [facility] Health Problem Qualifiers
--- NOTE | 2017-08-29 21:56 | DIAGNOSTIC IMAGING REPORT ---
CHEST ONE VIEW PORTABLE HISTORY: 82 years-old Female EVALUATE RESPIRATORY DISTRESS.DYSPNEA acute respiratory distress COMPARISON: Chest radiograph 06/15/2017 TECHNIQUE: Portable AP view of the chest FINDINGS: Cardiac silhouette is mildly enlarged. Left subclavian pacer is unchanged. No pneumothorax or large pleural effusion. No overt pulmonary edema. Linear subsegmental bibasilar opacities favor atelectasis. Severe osteoarthritis about the bilateral shoulders with degenerative changes noted within the spine. IMPRESSION: No acute process. The above report was generated using voice recognition software. It may contain grammatical, syntax or spelling errors. Electronically signed by: Osorio Foster M.D. 08/29/2017 9:55 PM Dictated Date/Time: 08/29/2017 9:54 PM
[2017-08-29 21:59] LABS: BASO % 0.3 %; BASO ABS # 0.02 K/uL (0-0.2); EOS % 2.5 %; EOS ABS # 0.19 K/uL (0-0.5); HEMATOCRIT 36.3 % (37-47); HEMOGLOBIN 11.6 g/dL (12.0-16.0); IG# 0.02 K/uL (0.00-0.02); LYMPH % 8.9 %; LYMPH ABS # 0.69 K/uL (1.2-3.4); MEAN CELL VOLUME 87.1 fL (80-100); MEAN CORPUSCULAR HEMOGLOBIN 27.8 pg (25-34); MEAN PLATELET VOLUME 10.7 fL (7.4-10.4); MONO % 12.5 %; MONO ABS # 0.96 K/uL (0.11-0.59); NEUT % 75.5 %; NEUT ABS # 5.83 K/uL (1.4-6.5); PLATELET COUNT 150 K/uL (130-400); RED CELL DISTRIBUTION WIDTH CV 15.3 % (11.5-14.5); RED CELL DISTRIBUTION WIDTH SD 48.6 fL (36.4-46.3); WHITE BLOOD COUNT 7.71 K/uL (4.8-10.8)
[2017-08-29 22:00] LABS: INR 2.1 (0.9-1.1); PTT PATIENT 34.8 SECONDS (21.0-31.0)
[2017-08-29 22:15] LABS: ALBUMIN 3.1 gm/dl (3.4-5.0); ALKALINE PHOSPHATASE 83 U/L (45-117); ALT/SGPT 18 U/L (12-78); AST/SGOT 17 U/L (15-37); BLOOD UREA NITROGEN 32 mg/dl (7-18); CALCIUM 8.2 mg/dl (8.5-10.1); CARBON DIOXIDE 29 mmol/L (21-32); CREATININE 1.61 mg/dl (0.60-1.20); GLUCOSE 106 mg/dl (70-99); POTASSIUM 3.9 mmol/L (3.5-5.1); SODIUM 135 mmol/L (136-145); TOTAL PROTEIN 6.3 gm/dl (6.4-8.2)
[2017-08-29] MEDS ORDERED: LEVO88TA3 PO (22:33)
[2017-08-29] MEDS ORDERED: IPRASOL4 INH (22:52)
[2017-08-29] MEDS ORDERED: BENZ100C84 PO (22:55)
[2017-08-29] MEDS ORDERED: SODIUM CHLORIDE 0.9% 500ML 500 ML IV STA (23:49)
[2017-08-30] VITALS (7 sets, daily range): BP systolic 110–138; BP diastolic 69–79; PULSE 70–74; TEMP 36.7–36.9; O2SAT 90–99; Ht 165.1 cm; Wt 78.5 kg
[2017-08-30] MEDS ORDERED: ACETAMINOPHEN 325 MG TAB PO PRN (00:30)
[2017-08-30] MEDS ORDERED: PIPERACILL/TAZOBAC CONSULT ACTIVE PRN (00:30)
[2017-08-30] MEDS ORDERED: ALBUT/IPRATROP 3MG/0.5MG NEB 3 ML VIAL INH PRN (00:30)
[2017-08-30] MEDS ORDERED: NITROGLYCERIN 0.4 MG SL PER TAB CHARGE UT SCH (00:30)
[2017-08-30] MEDS ORDERED: DOCUSATE SODIUM/SENNA 50/8.6MG TAB PO PRN (00:30)
[2017-08-30] MEDS ORDERED: ACETAMINOPHEN 500 MG TAB PO PRN (00:30)
[2017-08-30] MEDS ORDERED: ALBUTEROL HFA 8 GM INHALER INH PRN (00:30)
[2017-08-30] MEDS ORDERED: ONDANSETRON INJ 2 MG/ML 2 ML VIAL IV PRN (00:30)
[2017-08-30] MEDS ORDERED: ALUMINUM/MAGNESIUM/SIMETH (MAALOX MAX) 30 ML UDC PO PRN (00:30)
[2017-08-30] MEDS ORDERED: POLYETHYLENE (MIRALAX) 17 GM PACK PO PRN (00:30)
[2017-08-30] MEDS ORDERED: TRAMADOL HCL 50 MG TAB PO PRN (00:30)
[2017-08-30] MEDS ORDERED: MAGNESIUM HYDROXIDE SUSP 30 ML UDC PO PRN (00:30)
[2017-08-30] MEDS ORDERED: BENZONATATE 100MG CAP PO PRN (00:30)
[2017-08-30] MEDS ORDERED: ZOLPIDEM TARTRATE 5 MG TAB PO PRN (00:30)
--- NOTE | 2017-08-30 01:04 | History and Physical ---
History & Physical Date & Time of Service: August 30, 2017 at 00:10 Chief Complaint: Chest Pain/Sob Primary Care Physician: Vinod,The History of Present Illness Source: patient 82F with a PMHx of COPD, Ventricularly paced Rhythm, CHF, hypothyroidism is presenting from [facility] for a cardiac assessment. History of limited due to either patient's dementia or acute worsened mental status. Patient states that her stomach and legs hurt. She states that her stomach has been hurting for one day and that her legs have been hurting for one week. Patient states that she has had a heart attack in the past but doesn't think she currently is having a heart attack. She at present denies chest pain. Patient is able to tell me where she lives ([facility] in [place]), she is able to tell me her name and the name of the hospital ([facility]), she does state that the year is 1917. Patient states that she ambulates on her own. I briefly left the room and the patient asked me if I was going to [place]. Otherwise the patient speaks and answers questions appropriately. ROS: No diarrhea, no vomiting, no chest pain , pt is coughing - she states that is chronic. Past Medical/Surgical History Medical Problems: (1) Cellulitis (2) Cellulitis, leg (3) Chronic a-fib (4) Chronic osteoarthritis (5) CKD (chronic kidney disease) stage 3, GFR 30-59 ml/min (6) Contusion of left arm (7) Diastolic CHF (8) Dyslipidemia (9) GERD (gastroesophageal reflux disease) (10) HTN (hypertension) (11) Hypothyroidism (12) Moderate COPD (chronic obstructive pulmonary disease) (13) Superficial bruising of upper limb (14) Tachy-jace syndrome (15) Vomiting Surgical Problems: (1) History of appendectomy (2) History of cholecystectomy (3) History of hysterectomy (4) History of knee replacement (5) History of lumbar laminectomy for spinal cord decompression (6) History of tonsillectomy (7) History of total right hip arthroplasty (8) History of tubal ligation (9) S/P placement of cardiac pacemaker (10) S/P tonsillectomy and adenoidectomy Family History No pertinent family history Social History Smoking Status: Former Smoker Drug Use: none Marital Status: Housing status: assisted living Occupational Status: retired Immunizations History of Influenza Vaccine: Yes Influenza Vaccine Date: Feb 10, 2016 History of Tetanus Vaccine?: Yes Tetanus Immunization Date: Dec 05, 2007 History of Pneumococcal: Yes Pneumococcal Date: Oct 17, 2014 Multi-Drug Resistant Organisms History of MDRO: No Allergies Coded Allergies: Oxycodone (Verified Adverse Reaction, Intermediate, ALTERED MENTAL STATUS , N/V, 07/17/15) Alcohol (Verified Adverse Reaction, Mild, PASSES OUT WITH A SIP, 07/17/15) Codeine (Verified Adverse Reaction, Mild, N/V - RECEIVED MORPHINE ON PRIOR ADMIT W/O RXN, 07/17/15) PER PT: PASSED OUT AFTER CODEINE 30YRS AGO. Home Medications Scheduled Allopurinol (Zyloprim), 50 MG PO DAILY Aspirin (Aspirin 81), 81 MG PO DAILY Calcium/Vitamin D (Os-Tesfaye 500 Plus D), 1 TAB PO DAILY Docusate Sodium (Docusate Sodium), 100 MG PO BID Fluticasone Prop/Salmeterol (Advair Diskus 250/50 60 Dose), 1 PUFF INH BID Furosemide (Furosemide), 80 TAB PO BID Levothyroxine Sodium (Levothyroxine Sodium), 88 MCG PO DAILY Metoprolol Tartrate (Lopressor) (Lopressor), 12.5 MG PO BID Nitroglycerin (Nitrostat), 0.4 MG UT PRN Pantoprazole (Protonix), 40 MG PO DAILY Potassium Ext Rel (Klor-Con), 20 MEQ PO DAILY Spironolactone (Aldactone), 12.5 MG PO DAILY Warfarin Sod (Jantoven), 2 MG PO 3XWK Warfarin Sodium (Warfarin Sodium), 4 MG PO DAILY Scheduled PRN Acetaminophen (Tylenol), 500 MG PO Q4 PRN for Pain or Fever Albuterol Hfa (Ventolin Hfa), 2 PUFFS INH Q4 PRN for SOB/Wheezing Benzonatate (Tessalon Perles), 100 MG PO TID PRN for Cough Ipratropium-Albuterol (Duoneb), 3 ML INH Q4H PRN for SOB/Wheezing Senna/Docusate Sod (Senokot S), 1 TAB PO DAILY PRN for Constipation Tramadol (Ultram), 50 MG PO Q6 PRN for Pain Review of Systems Constitutional: No fever, No chills ENT: No hearing loss Respiratory: No cough, No sputum, No wheezing, No shortness of breath Cardiovascular: No chest pain Abdomen: + pain, No nausea, No vomiting, No diarrhea, No constipation Genitourinary - Female: No dysuria Neurologic: No memory loss Integumentary: + problem reported (leg pain) Physical Exam Vital Signs Date Time Temp Pulse Resp B/P (MAP) Pulse Ox O2 Delivery O2 Flow Rate FiO2 08/29/17 22:39 71 26 107/66 97 Room Air 08/29/17 21:43 94 Nasal Cannula 2.0 08/29/17 20:56 Nasal Cannula 2.0 08/29/17 20:56 Nasal Cannula 2.0 08/29/17 20:56 37.3 86 24 124/100 97 Nasal Cannula 2.0 08/29/17 20:53 73 General Appearance: WD/WN, no apparent distress Head: normocephalic, atraumatic Eyes: normal inspection, PERRL ENT: normal ENT inspection Neck: supple, no adenopathy Respiratory/Chest: chest non-tender, lungs clear, normal breath sounds, no respiratory distress, no accessory muscle use Cardiovascular: regular rate, rhythm, no gallop, no JVD, no murmur, normal peripheral pulses Abdomen/GI: normal bowel sounds, non tender, soft, no organomegaly, no pulsatile mass Back: normal inspection, no CVA tenderness Extremities/Musculoskelatal: normal capillary refill, no pedal edema, normal range of motion, + pertinent finding (bilateral tender, warm and erythematous LE ) Neurologic/Psych: heating engineer II-XII nml as tested, no motor/sensory deficits, alert, normal mood/affect, + pertinent finding (oriented to person, place but not time (year)) Diagnostics Laboratory Results Results Past 24 Hours Test 08/29/17 21:34 Range/Units White Blood Count 7.71 4.8-10.8 K/uL Red Blood Count 4.17 4.2-5.4 M/uL Hemoglobin 11.6 12.0-16.0 g/dL Hematocrit 36.3 37-47 % Mean Corpuscular Volume 87.1 80-100 fL Mean Corpuscular Hemoglobin 27.8 25-34 pg Mean Corpuscular Hemoglobin Concent 32.0 32-36 g/dl Platelet Count 150 130-400 K/uL Mean Platelet Volume 10.7 7.4-10.4 fL Neutrophils (%) (Auto) 75.5 % Lymphocytes (%) (Auto) 8.9 % Monocytes (%) (Auto) 12.5 % Eosinophils (%) (Auto) 2.5 % Basophils (%) (Auto) 0.3 % Neutrophils # (Auto) 5.83 1.4-6.5 K/uL Lymphocytes # (Auto) 0.69 1.2-3.4 K/uL Monocytes # (Auto) 0.96 0.11-0.59 K/uL Eosinophils # (Auto) 0.19 0-0.5 K/uL Basophils # (Auto) 0.02 0-0.2 K/uL RDW Standard Deviation 48.6 36.4-46.3 fL RDW Coefficient of Variation 15.3 11.5-14.5 % Immature Granulocyte % (Auto) 0.3 % Immature Granulocyte # (Auto) 0.02 0.00-0.02 K/uL Prothrombin Time 21.7 9.0-12.0 SECONDS Prothromb Time International Ratio 2.1 0.9-1.1 Activated Partial Thromboplast Time 34.8 21.0-31.0 SECONDS Partial Thromboplastin Ratio 1.3 Urine Color YELLOW Urine Appearance CLOUDY CLEAR Urine pH 6.5 4.5-7.5 Urine Specific [place] 1.011 1.000-1.030 Urine Protein NEG NEG Urine Glucose (UA) NEG NEG Urine Ketones NEG NEG Urine Occult Blood TRACE NEG Urine Nitrite POS NEG Urine Bilirubin NEG NEG Urine Urobilinogen NEG NEG Urine Leukocyte Esterase LARGE NEG Urine WBC (Auto) >30 0-5 /hpf Urine RBC (Auto) 0-4 0-4 /hpf Urine Hyaline Casts (Auto) 1-5 0-5 /lpf Urine Epithelial Cells (Auto) 5-10 0-5 /lpf Urine Bacteria (Auto) 1+ NEG Urine Pathogenic Casts 0 /lpf Sodium Level 135 136-145 mmol/L Potassium Level 3.9 3.5-5.1 mmol/L Chloride Level 99 98-107 mmol/L Carbon Dioxide Level 29 21-32 mmol/L Anion Gap 7.0 3-11 mmol/L Blood Urea Nitrogen 32 7-18 mg/dl Creatinine 1.61 0.60-1.20 mg/dl Est Creatinine Clear Calc Drug Dose 27.1 ml/min Estimated GFR () 33.7 Estimated GFR (Non- 29.1 BUN/Creatinine Ratio 19.6 10-20 Random Glucose 106 70-99 mg/dl Lactic Acid Level 2.2 0.4-2.0 mmol/L Calcium Level 8.2 8.5-10.1 mg/dl Magnesium Level 1.9 1.8-2.4 mg/dl Total Bilirubin 0.5 0.2-1 mg/dl Aspartate Amino Transf (AST/SGOT) 17 15-37 U/L Alanine Aminotransferase (ALT/SGPT) 18 12-78 U/L Alkaline Phosphatase 83 45-117 U/L Troponin I < 0.015 0-0.045 ng/ml Total Protein 6.3 6.4-8.2 gm/dl Albumin 3.1 3.4-5.0 gm/dl Globulin 3.2 2.5-4.0 gm/dl Albumin/Globulin Ratio 1.0 0.9-2 Microbiology Results 08/29/17 Blood Culture, Received Pending 08/29/17 Blood Culture, Received Pending 08/29/17 Urine Culture, Received Pending Diagnostic Radiology CHEST ONE VIEW PORTABLE HISTORY: 82 years-old Female EVALUATE RESPIRATORY DISTRESS.DYSPNEA acute respiratory distress COMPARISON: Chest radiograph 06/15/2017 TECHNIQUE: Portable AP view of the chest FINDINGS: Cardiac silhouette is mildly enlarged. Left subclavian pacer is unchanged. No pneumothorax or large pleural effusion. No overt pulmonary edema. Linear subsegmental bibasilar opacities favor atelectasis. Severe osteoarthritis about the bilateral shoulders with degenerative changes noted within the spine. IMPRESSION: No acute process. EKG Ventricular-paced rhythm Abnormal ECG When compared with ECG of 29-AUG-2017 19:41, (unconfirmed) Electronic ventricular pacemaker has replaced Sinus rhythm Impression Assessment and Plan 82F with a PMHx of COPD, Ventricularly paced Rhythm, CHF, hypothyroidism is presenting from [facility] for a cardiac assessment. No ST Changes on EKG and initial trops negative. Chest Pain rule out. Pt denies any current chest pain and doesn't think she is having an MD, but she may be altered. No EKG Changes concerning of ACS. Trop neg x 1. Will trend trops. Erythematous LE, cellulitis vs chronic vascular changes Unclear if this is an acute or from chronic venous stasis. Will Treat empirically with Ceftriaxone. MRSA nasal swab. If positive, consider adding MRSA coverage. Ordered wound culture on LE - follow up. Lactate elevated but pt does not appear septic. Follow up blood cultures. Will trend LA. UTI Follow up Urine Culture. Ceftriaxone as above. Dementia vs AMS Unclear what patient's baseline is, might want to clarify with [facility] or pt's son. COPD On chronic O2 at home. c/w Advair 1puff BID. c/w Duoneb 3 ML INH Q4H PRN for SOB/Wheezing Albuterol PRN. H/o Gout c/w Home Allopurinol Chronic Diastolic CHF / HTN Last Echo was 06/2016: EF of 55% c/w Lasix 80mg BID. c/w Lopressor 12.5mg PO BID c/w Aldactone 12.5mg PO Daily. c/w home ASA Hypothyroidism c/w Synthroid 88mcg daily. Will check TSH. CKD III At baseline, will monitor. Chronic A. Fib, Tachy Jace syndrome s/p Pacemaker. H/O AV node ablation c/w Warfarin 3mg daily (pt is on a regimen of 2mg vs 4mg per day) Social: [facility]. Dispo: Tele, Obs. DVT Proph: On Coumadin. FULL CODE Resident Physician Supervision Note: I was present with Dr. Gutierrez during the history and exam. I discussed the case with the resident and agree with the findings and plan as documented in the note. Any exceptions or clarifications are listed here: 82 y/o F Hx chronic diastolic CHF, AF, CKD, HTN, dementia. Sent in from facility as she had apparently c/o CP. It appears she has cellulitis of the LEs , an inital UA is (+) and lactic is slightly elevated. She does not c/o CP on arrival and felt that this may have been more GI-related. OE AAO x 2 S1,2 R CTA NT, ND LE Cellulitis is present P: Cellulitis/UTI - Pt does not have a white count or fever. She received Zosyn in the ER. We will place her on Ceftriaxone going forward and pending culture results. CP - no evidence of ACS - trop trended AF - rate controlled - pt tp cont Coumadin COPD - no acute exacerbation - cont Advair, Duonebs Documented By: Blayne Jones Resident Involvement: Resident Care Provided Care Provided: Adult [facility] Medicine
[2017-08-30] MEDS ORDERED: IV FLUIDS COMPLETED PRN (01:15)
[2017-08-30] MEDS ORDERED: PIPERACILL/TAZOBAC IV 3.375 GM in DEXTROSE 5% 100ML 100 ML IV SCH (06:00)
[2017-08-30] MEDS: LEVOTHYROXINE 88 MCG TAB PO SCH (06:15)
[2017-08-30] MEDS: CEFTRIAXONE SOD INJ 1 GM in DEXTROSE 5% ADD-VANTAGE 50ML 50 ML IV SCH (06:15)
[2017-08-30 06:29] LABS: HEMATOCRIT 33.9 % (37-47); HEMOGLOBIN 10.7 g/dL (12.0-16.0); MEAN CELL VOLUME 85.8 fL (80-100); MEAN CORPUSCULAR HEMOGLOBIN 27.1 pg (25-34); MEAN CORPUSCULAR HGB CONC 31.6 g/dl (32-36); MEAN PLATELET VOLUME 10.3 fL (7.4-10.4); PLATELET COUNT 140 K/uL (130-400); RED CELL DISTRIBUTION WIDTH CV 15.3 % (11.5-14.5); RED CELL DISTRIBUTION WIDTH SD 47.6 fL (36.4-46.3); WHITE BLOOD COUNT 5.62 K/uL (4.8-10.8)
[2017-08-30 06:45] LABS: INR 2.2 (0.9-1.1)
[2017-08-30 07:06] LABS: BLOOD UREA NITROGEN 29 mg/dl (7-18); CALCIUM 8.2 mg/dl (8.5-10.1); CARBON DIOXIDE 30 mmol/L (21-32); CREATININE 1.55 mg/dl (0.60-1.20); GLUCOSE 91 mg/dl (70-99); POTASSIUM 3.5 mmol/L (3.5-5.1); SODIUM 140 mmol/L (136-145)
[2017-08-30] MEDS: FLUTICASONE/SALMETEROL 250/50 (ADVAIR) 14 PUFF/1 INHALER INH SCH ×2 (08:54→20:13)
--- NOTE | 2017-08-30 08:54 | Family Medicine Progress Note ---
Progress Note Date of Service August 30, 2017. Subjective Pt evaluation today including: conversation w/ patient, physical exam, chart review, lab review Pain: None Voiding: no voiding problems, no incontinence No new issues overnight Denies chest pain, SOB or palpitation. Denies orthopnea Notes that legs get swollen as day progresses. Does have pain in both legs Denies fevers. No new nursing concerns overnight. Additional Comments: A 10 point review of systems was negative unless stated above. Medications Current Inpatient Medications Medications (Trade) Dose Ordered Sig/Terence Route Start Time Stop Time Status Last Admin Dose Admin Acetaminophen (Tylenol Tab) 650 mg Q4H PRN PO 08/30/17 00:30 09/29/17 00:29 Al Hydrox/Mg Hydrox/Simethicone (Maalox Max Susp) 15 ml Q4H PRN PO 08/30/17 00:30 09/29/17 00:29 Magnesium Hydroxide (Milk Of Magnesia Susp) 30 ml Q12H PRN PO 08/30/17 00:30 09/29/17 00:29 Zolpidem Tartrate (Ambien Tab) 5 mg HSZ PRN PO 08/30/17 00:30 09/29/17 00:29 Ondansetron HCl (Zofran Inj) 4 mg Q6H PRN IV 08/30/17 00:30 09/29/17 00:29 Polyethylene (Miralax Powder Packet) 17 gm DAILY PRN PO 08/30/17 00:30 09/29/17 00:29 Albuterol (Ventolin Hfa Inhaler) 2 puffs Q4 PRN INH 08/30/17 00:30 09/29/17 00:29 Allopurinol (Zyloprim Tab) 50 mg DAILY PO 08/30/17 09:00 09/29/17 08:59 08/30/17 08:55 50 MG Aspirin (Ecotrin Tab) 81 mg DAILY PO 08/30/17 09:00 09/29/17 08:59 08/30/17 08:56 81 MG Benzonatate (Tessalon Perles Cap) 100 mg TID PRN PO 08/30/17 00:30 09/29/17 00:29 Calcium/Vitamin D (Caltrate Plus Tab) 1 tab DAILY PO 08/30/17 09:00 09/29/17 08:59 08/30/17 08:55 1 TAB Docusate Sodium (coLACE CAP) 100 mg BID PO 08/30/17 09:00 09/29/17 08:59 08/30/17 08:56 100 MG Salmeterol Xinafoate/ Fluticasone (Advair Diskus 250/50 Inh) 1 puff BID INH 08/30/17 09:00 09/29/17 08:59 08/30/17 08:54 1 PUFF Furosemide (Lasix Tab) 80 mg BID PO 08/30/17 09:00 09/29/17 08:59 08/30/17 08:56 80 MG Albuterol/ Ipratropium (Duoneb) 3 ml Q4H PRN INH 08/30/17 00:30 09/29/17 00:29 Levothyroxine Sodium (Synthroid Tab) 88 mcg DAILYBB PO 08/30/17 06:30 09/29/17 06:29 08/30/17 06:15 88 MCG Metoprolol Tartrate (Lopressor Tab) 12.5 mg BID PO 08/30/17 09:00 09/29/17 08:59 08/30/17 08:56 12.5 MG Nitroglycerin (Nitrostat Tab) 0.4 mg PRN UT 08/30/17 00:30 09/29/17 00:29 Pantoprazole Sodium (Protonix Tab) 40 mg DAILY PO 08/30/17 09:00 09/29/17 08:59 08/30/17 08:57 40 MG Potassium Chloride (Klor-Con Tab) 20 meq DAILY PO 08/30/17 09:00 09/29/17 08:59 08/30/17 08:58 20 MEQ Senna/Docusate Sodium (Senokot S Tab) 1 tab DAILY PRN PO 08/30/17 00:30 09/29/17 00:29 Spironolactone (Aldactone Tab) 12.5 mg DAILY PO 08/30/17 09:00 09/29/17 08:59 08/30/17 08:59 12.5 MG Tramadol HCl (Ultram Tab) 50 mg Q6 PRN PO 08/30/17 00:30 09/29/17 00:29 Miscellaneous (Iv Fluids Completed) 1 ea PRN PRN N/A 08/30/17 01:15 08/30/18 01:14 Ceftriaxone Sodium 1 gm/ Dextrose 50 ml @ 100 mls/hr Q24H IV 08/30/17 07:00 09/09/17 06:59 08/30/17 06:15 100 MLS/HR Warfarin Sodium (Coumadin Tab) 5 mg DAILY@1600 PO 08/30/17 16:00 09/29/17 15:59 Objective Vital Signs Date Time Temp Pulse Resp B/P (MAP) Pulse Ox O2 Delivery O2 Flow Rate FiO2 08/30/17 08:00 Room Air 08/30/17 07:23 36.9 74 18 122/75 (91) 99 Nasal Cannula 2.0 08/30/17 04:16 36.7 70 17 120/70 (87) 98 Room Air 08/30/17 04:00 Nasal Cannula 2.0 08/30/17 01:45 36.7 74 16 138/72 90 Room Air 08/30/17 00:38 71 18 103/70 97 Room Air 08/30/17 00:25 78 08/29/17 22:39 71 26 107/66 97 Room Air 08/29/17 21:43 94 Nasal Cannula 2.0 08/29/17 20:56 Nasal Cannula 2.0 08/29/17 20:56 Nasal Cannula 2.0 08/29/17 20:56 37.3 86 24 124/100 97 Nasal Cannula 2.0 08/29/17 20:53 73 Physical Exam General Appearance: WD/WN, no apparent distress Eyes: normal inspection, EOMI ENT: hearing grossly normal, pharynx normal Neck: supple, no adenopathy, no JVD Respiratory/Chest: lungs clear, no respiratory distress Cardiovascular: regular rate, rhythm, no gallop, no murmur Abdomen: normal bowel sounds, non tender, soft Extremities: + pertinent finding (erytmeatous and tendern to touch; no pitting edema) Neurologic/Psychiatric: alert, normal mood/affect, oriented x 3 Skin: normal color, warm/dry, no rash Lymphatic: no adenopathy Laboratory Results Last 24 Hours Test 08/29/17 21:34 08/30/17 06:20 White Blood Count 7.71 K/uL 5.62 K/uL Red Blood Count 4.17 M/uL 3.95 M/uL Hemoglobin 11.6 g/dL 10.7 g/dL Hematocrit 36.3 % 33.9 % Mean Corpuscular Volume 87.1 fL 85.8 fL Mean Corpuscular Hemoglobin 27.8 pg 27.1 pg Mean Corpuscular Hemoglobin Concent 32.0 g/dl 31.6 g/dl Platelet Count 150 K/uL 140 K/uL Mean Platelet Volume 10.7 fL 10.3 fL Neutrophils (%) (Auto) 75.5 % Lymphocytes (%) (Auto) 8.9 % Monocytes (%) (Auto) 12.5 % Eosinophils (%) (Auto) 2.5 % Basophils (%) (Auto) 0.3 % Neutrophils # (Auto) 5.83 K/uL Lymphocytes # (Auto) 0.69 K/uL Monocytes # (Auto) 0.96 K/uL Eosinophils # (Auto) 0.19 K/uL Basophils # (Auto) 0.02 K/uL RDW Standard Deviation 48.6 fL 47.6 fL RDW Coefficient of Variation 15.3 % 15.3 % Immature Granulocyte % (Auto) 0.3 % Immature Granulocyte # (Auto) 0.02 K/uL Prothrombin Time 21.7 SECONDS 23.1 SECONDS Prothromb Time International Ratio 2.1 2.2 Activated Partial Thromboplast Time 34.8 SECONDS Partial Thromboplastin Ratio 1.3 Urine Color YELLOW Urine Appearance CLOUDY Urine pH 6.5 Urine Specific [place] 1.011 Urine Protein NEG Urine Glucose (UA) NEG Urine Ketones NEG Urine Occult Blood TRACE Urine Nitrite POS Urine Bilirubin NEG Urine Urobilinogen NEG Urine Leukocyte Esterase LARGE Urine WBC (Auto) >30 /hpf Urine RBC (Auto) 0-4 /hpf Urine Hyaline Casts (Auto) 1-5 /lpf Urine Epithelial Cells (Auto) 5-10 /lpf Urine Bacteria (Auto) 1+ Urine Pathogenic Casts /lpf Sodium Level 135 mmol/L 140 mmol/L Potassium Level 3.9 mmol/L 3.5 mmol/L Chloride Level 99 mmol/L 104 mmol/L Carbon Dioxide Level 29 mmol/L 30 mmol/L Anion Gap 7.0 mmol/L 6.0 mmol/L Blood Urea Nitrogen 32 mg/dl 29 mg/dl Creatinine 1.61 mg/dl 1.55 mg/dl Est Creatinine Clear Calc Drug Dose 27.1 ml/min 28.0 ml/min Estimated GFR () 33.7 35.3 Estimated GFR (Non- 29.1 30.4 BUN/Creatinine Ratio 19.6 18.8 Random Glucose 106 mg/dl 91 mg/dl Lactic Acid Level 2.2 mmol/L 0.8 mmol/L Calcium Level 8.2 mg/dl 8.2 mg/dl Magnesium Level 1.9 mg/dl Total Bilirubin 0.5 mg/dl Aspartate Amino Transf (AST/SGOT) 17 U/L Alanine Aminotransferase (ALT/SGPT) 18 U/L Alkaline Phosphatase 83 U/L Troponin I < 0.015 ng/ml < 0.015 ng/ml Total Protein 6.3 gm/dl Albumin 3.1 gm/dl Globulin 3.2 gm/dl Albumin/Globulin Ratio 1.0 Thyroid Stimulating Hormone (TSH) 0.395 uIu/ml Assessment and Plan 82 year old female who presents with chest pain, lower abdominal and leg pain. Currently being having chest-pain rule-out protocol. Also being treated with antibiotics for UTI and possible bilateral cellulitis. Our plan for her is as follows: - Chest Pain: Currently chest pain free. Troponin x 2 negative. No acute change son EKG. Repeat troponin pending. - Acute Bacterial UTI: Urine cultures pending. Continue Rocephin. No sepsis on arrival. Blood cultures pending. - Bilateral lower extremity cellulitis vs chronic venous insufficiency: Seems unlikely to be bilateral cellulitis but patient is getting Rocephin which can concurrently treat for this. Will concurrently, elevate the legs and apply SCDs to improve circulation. Wound care consultation for skin care. - COPD: Patient normally takes 2L O2 at nighttime and with ambulation. Patient is currently at baseline. There is no indication of an acute exacerbation. Will continue home Advair and Albuterol PRN. - Chronic Diastolic CHF: EF 55% per 2017 echo. Patient is currently euvolemic without evidence of exacerbation. Continue home meds including daily BID Lasix , BID lopressor and daily Aldactone. Continue ASA daily. 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 She is on Coumadin for anticoagulation and is at [facility] INR 2.0-3.0. Check daily PT/INR - Hypothyroidism: Continue with home dose of Synthroid - CKDb: Cr 1.6, which is currently her baseline. Monitor daily BMP - Gout: Continue home dose of allopurinol. - Code Status: Level I Full Code - DVT Prophylaxis: SCD, IVAN, early ambulation. On Coumadin for atrial fibrillation - Disposition: If chest pain evaluation is negative, will transfer to med/Surg. Anticipate return back to the [facility]. Continued [facility] stay due to: multiple IV medications needed Discharge planning: other (Back to the [facility]) Assessment/Plan Resident Physician Supervision Note: I was present with Dr. Beltran during the history and exam. I discussed the case with the resident and agree with the findings and plan as documented in the note. Any exceptions or clarifications are listed here: Pt seen and examined at bedside. Pt reports no recurrence of chest discomfort. Bilateral lower extremity pain is atypical for her, though swelling has occurred previously, and is mildly improved since admission. Urinary complaints are resolved. Her creatinine, though elevated, is similar to values from June. Continue present abx regimen and supportive care for chronic conditions.
[2017-08-30] MEDS: ALLOPURINOL 100 MG TAB PO SCH (08:55)
[2017-08-30] MEDS: CALCIUM 600MG + VIT D 400 IU TAB PO SCH (08:55)
[2017-08-30] MEDS: FUROSEMIDE 80 MG TAB PO SCH ×2 (08:56→20:13)
[2017-08-30] MEDS: ASPIRIN 81 MG ECTAB PO SCH (08:56)
[2017-08-30] MEDS: DOCUSATE SODIUM 100 MG CAP PO SCH ×2 (08:56→20:13)
[2017-08-30] MEDS: METOPROLOL TARTRATE 25 MG TAB PO SCH ×2 (08:56→20:14)
[2017-08-30] MEDS: PANTOprazole SOD 40 MG TAB PO SCH (08:57)
[2017-08-30] MEDS: POTASSIUM CHLORIDE 20 MEQ TABCR PO SCH (08:58)
[2017-08-30] MEDS: SPIRONOLACTONE 25 MG TAB PO SCH (08:59)
[2017-08-30] MEDS: WARFARIN SOD 5 MG TAB PO SCH (15:29)
[2017-08-30] MEDS ORDERED: WARFARIN SOD 3 MG TAB PO SCH (16:00)
[2017-08-31 04:32] LABS: HEMOGLOBIN 11.9 g/dL (12.0-16.0); MEAN CELL VOLUME 87.5 fL (80-100); MEAN CORPUSCULAR HEMOGLOBIN 28.1 pg (25-34); MEAN CORPUSCULAR HGB CONC 32.2 g/dl (32-36); MEAN PLATELET VOLUME 10.4 fL (7.4-10.4); PLATELET COUNT 148 K/uL (130-400); RED CELL DISTRIBUTION WIDTH CV 15.2 % (11.5-14.5); RED CELL DISTRIBUTION WIDTH SD 48.5 fL (36.4-46.3); WHITE BLOOD COUNT 5.18 K/uL (4.8-10.8)
[2017-08-31 04:44] LABS: INR 2.1 (0.9-1.1)
[2017-08-31 04:51] LABS: CREATININE 1.52 mg/dl (0.60-1.20); POTASSIUM 3.8 mmol/L (3.5-5.1)
[2017-08-31] MEDS: CEFTRIAXONE SOD INJ 1 GM in DEXTROSE 5% ADD-VANTAGE 50ML 50 ML IV SCH (06:28)
[2017-08-31] MEDS: LEVOTHYROXINE 88 MCG TAB PO SCH (06:28)
[2017-08-31 07:15] VITALS: BP 135/83; PULSE 72; TEMP 36.5; O2SAT 96
--- NOTE | 2017-08-31 07:35 | Family Medicine Progress Note ---
Progress Note Date of Service August 31, 2017. Subjective Pt evaluation today including: conversation w/ patient, conversation w/ family Initially met with patient early in the morning, but also saw her again on morning rounds. The patient is aware of her name, date of , but states it is 2007. She is unaware of the city or location (hospital) but says she is in [place]. She presently denies any chest pain, shortness of breath, leg pain, or any concerns. She very much says she would like to go home but seems unaware of why she is in the hospital in the first place. She has no acute concerns. Constitutional: No fever, No chills Respiratory: No cough, No shortness of breath Cardiovascular: No chest pain, No edema Abdomen: No pain, No nausea, No vomiting Skin: + rash Medications Current Inpatient Medications Medications (Trade) Dose Ordered Sig/Terence Route Start Time Stop Time Status Last Admin Dose Admin Acetaminophen (Tylenol Tab) 650 mg Q4H PRN PO 08/30/17 00:30 09/29/17 00:29 Al Hydrox/Mg Hydrox/Simethicone (Maalox Max Susp) 15 ml Q4H PRN PO 08/30/17 00:30 09/29/17 00:29 Magnesium Hydroxide (Milk Of Magnesia Susp) 30 ml Q12H PRN PO 08/30/17 00:30 09/29/17 00:29 Zolpidem Tartrate (Ambien Tab) 5 mg HSZ PRN PO 08/30/17 00:30 09/29/17 00:29 Ondansetron HCl (Zofran Inj) 4 mg Q6H PRN IV 08/30/17 00:30 09/29/17 00:29 Polyethylene (Miralax Powder Packet) 17 gm DAILY PRN PO 08/30/17 00:30 09/29/17 00:29 Albuterol (Ventolin Hfa Inhaler) 2 puffs Q4 PRN INH 08/30/17 00:30 09/29/17 00:29 Allopurinol (Zyloprim Tab) 50 mg DAILY PO 08/30/17 09:00 09/29/17 08:59 08/30/17 08:55 50 MG Aspirin (Ecotrin Tab) 81 mg DAILY PO 08/30/17 09:00 09/29/17 08:59 08/30/17 08:56 81 MG Benzonatate (Tessalon Perles Cap) 100 mg TID PRN PO 08/30/17 00:30 09/29/17 00:29 Calcium/Vitamin D (Caltrate Plus Tab) 1 tab DAILY PO 08/30/17 09:00 09/29/17 08:59 08/30/17 08:55 1 TAB Docusate Sodium (coLACE CAP) 100 mg BID PO 08/30/17 09:00 09/29/17 08:59 08/30/17 20:13 100 MG Salmeterol Xinafoate/ Fluticasone (Advair Diskus 250/50 Inh) 1 puff BID INH 08/30/17 09:00 09/29/17 08:59 08/30/17 20:13 1 PUFF Furosemide (Lasix Tab) 80 mg BID PO 08/30/17 09:00 09/29/17 08:59 08/30/17 20:13 80 MG Albuterol/ Ipratropium (Duoneb) 3 ml Q4H PRN INH 08/30/17 00:30 09/29/17 00:29 Levothyroxine Sodium (Synthroid Tab) 88 mcg DAILYBB PO 08/30/17 06:30 09/29/17 06:29 08/31/17 06:28 88 MCG Metoprolol Tartrate (Lopressor Tab) 12.5 mg BID PO 08/30/17 09:00 09/29/17 08:59 08/30/17 20:14 12.5 MG Nitroglycerin (Nitrostat Tab) 0.4 mg PRN UT 08/30/17 00:30 09/29/17 00:29 Pantoprazole Sodium (Protonix Tab) 40 mg DAILY PO 08/30/17 09:00 09/29/17 08:59 08/30/17 08:57 40 MG Potassium Chloride (Klor-Con Tab) 20 meq DAILY PO 08/30/17 09:00 09/29/17 08:59 08/30/17 08:58 20 MEQ Senna/Docusate Sodium (Senokot S Tab) 1 tab DAILY PRN PO 08/30/17 00:30 09/29/17 00:29 Spironolactone (Aldactone Tab) 12.5 mg DAILY PO 08/30/17 09:00 09/29/17 08:59 08/30/17 08:59 12.5 MG Tramadol HCl (Ultram Tab) 50 mg Q6 PRN PO 08/30/17 00:30 09/29/17 00:29 Miscellaneous (Iv Fluids Completed) 1 ea PRN PRN N/A 08/30/17 01:15 08/30/18 01:14 Ceftriaxone Sodium 1 gm/ Dextrose 50 ml @ 100 mls/hr Q24H IV 08/30/17 07:00 09/09/17 06:59 08/31/17 06:28 100 MLS/HR Warfarin Sodium (Coumadin Tab) 5 mg DAILY@1600 PO 08/30/17 16:00 09/29/17 15:59 08/30/17 15:29 5 MG Objective Vital Signs Date Time Temp Pulse Resp B/P (MAP) Pulse Ox O2 Delivery O2 Flow Rate FiO2 08/31/17 07:15 36.5 72 18 135/83 (100) 96 Room Air 08/31/17 00:00 Room Air 08/30/17 23:35 36.7 71 20 133/69 (90) 94 Room Air 08/30/17 15:50 96 Room Air 08/30/17 15:23 36.7 72 18 110/69 (83) 96 Room Air 08/30/17 12:00 Room Air 08/30/17 11:26 36.8 73 18 132/79 (96) 96 Room Air 08/30/17 08:00 Room Air Physical Exam Notes: General Appearance: Awake, alert but only oriented to herself and her date of , comfortable in general, NAD. CV: +S1S2 RRR, no murmur. Pulm: Clear to auscultation throughout. Abdomen: +BS, soft, non-tender, non-distended. Extremities: Moving all extremities naturally and easily. Bilateral lower extremities have chronic erythema with questionable overlying increased redness. Very minimal tenderness to palpation over the right distal yepez. No present edema. Neuro: No gross neuro deficits. Laboratory Results 08/31/17 04:20 08/31/17 04:20 Test 08/30/17 12:32 08/30/17 12:48 08/31/17 04:20 Troponin I < 0.015 ng/ml (0-0.045) Lactic Acid Level 1.4 mmol/L (0.4-2.0) Red Blood Count 4.23 M/uL (4.2-5.4) Mean Corpuscular Volume 87.5 fL (80-100) Mean Corpuscular Hemoglobin 28.1 pg (25-34) Mean Corpuscular Hemoglobin Concent 32.2 g/dl (32-36) RDW Standard Deviation 48.5 fL (36.4-46.3) RDW Coefficient of Variation 15.2 % (11.5-14.5) Mean Platelet Volume 10.4 fL (7.4-10.4) Prothrombin Time 21.5 SECONDS (9.0-12.0) Prothromb Time International Ratio 2.1 (0.9-1.1) Anion Gap 3.0 mmol/L (3-11) Est Creatinine Clear Calc Drug Dose 28.5 ml/min Estimated GFR () 36.1 Estimated GFR (Non- 31.2 BUN/Creatinine Ratio 17.2 (10-20) Calcium Level 9.0 mg/dl (8.5-10.1) Assessment and Plan 82-year-old female admitted on 30 Aug 2017 for evaluation of leg pain and abdominal pain. Bilateral leg pain: Question of bilateral lower extremity chronic venous insufficiency with possible overlying cellulitis. She has been on Rocephin with some noted improvement in her local pain. Wound care onboard for skin care. Cardiac evaluation: Apparently part of her referral from the [facility] was for cardiac rule out. The patient has a history of an KS but denies any present chest pain. Chest x-ray was clear. EKG showed no acute changes. Troponin 3 was negative. UTI: Urine culture grew E. coli. Pending sensitivities. Currently on Rocephin. Blood cultures 2 have shown no growth to date. Chronic medical issues: - COPD: Patient normally takes 2L O2 at nighttime and with ambulation. Patient is currently at baseline. There is no indication of an acute exacerbation. Will continue home Advair and Albuterol PRN. - Chronic Diastolic CHF: EF 55% per 2017 echo. Patient is currently euvolemic without evidence of exacerbation. Continue home meds including daily BID Lasix , BID lopressor and daily Aldactone. Continue ASA daily. 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 She is on Coumadin for anticoagulation and is at Target INR 2.0-3.0. Check daily PT/INR. - Hypothyroidism: Continue with home dose of Synthroid - CKD: Cr 1.6, which is currently her baseline. Monitor daily BMP. - Gout: Continue home dose of allopurinol. Code status: Full code Diet: AHA diet DVT prophy: SCDs, teds, early ambulation. On Coumadin for A. fib. PT/OT: See their evaluation. Disbo: Admit to [facility]. Patient is a resident of [facility] and his son is available for help/transport. Resident Tracking Resident Involvement: Resident Care Provided Care Provided: Adult Hospital Medicine (inpatient) Assessment/Plan Resident Physician Supervision Note: I was present with Dr. White during the history and exam. I discussed the case with the resident and agree with the findings and plan as documented in the note. Any exceptions or clarifications are listed here: Pt seen and examined at bedside. Pt maintains no recurrence of chest discomfort. Bilateral lower extremity pain has considerably improved from yesterday - though she insists she didn't have pain, she reported such and grimaced considerably on palpation, which is improved now. No further urinary complaints. UCx growing E. coli, sensitivities pending. Cr at baseline. Continue present abx regimen and narrow w/ sensitivities. Else as noted in resident documentation.
[2017-08-31 08:10] VITALS: O2SAT 96
[2017-08-31] MEDS: DOCUSATE SODIUM 100 MG CAP PO SCH ×2 (09:17→21:11)
[2017-08-31] MEDS: SPIRONOLACTONE 25 MG TAB PO SCH (09:17)
[2017-08-31] MEDS: FLUTICASONE/SALMETEROL 250/50 (ADVAIR) 14 PUFF/1 INHALER INH SCH ×2 (09:17→21:10)
[2017-08-31] MEDS: CALCIUM 600MG + VIT D 400 IU TAB PO SCH (09:17)
[2017-08-31] MEDS: ALLOPURINOL 100 MG TAB PO SCH (09:17)
[2017-08-31] MEDS: ASPIRIN 81 MG ECTAB PO SCH (09:18)
[2017-08-31] MEDS: PANTOprazole SOD 40 MG TAB PO SCH (09:18)
[2017-08-31] MEDS: POTASSIUM CHLORIDE 20 MEQ TABCR PO SCH (09:18)
[2017-08-31] MEDS: METOPROLOL TARTRATE 25 MG TAB PO SCH ×2 (09:18→21:11)
[2017-08-31] MEDS: FUROSEMIDE 80 MG TAB PO SCH ×2 (09:19→21:11)
[2017-08-31 15:12] VITALS: BP 135/80; PULSE 71; TEMP 36.4; O2SAT 97
[2017-08-31] MEDS: WARFARIN SOD 5 MG TAB PO SCH (15:58)
[2017-08-31 16:00] VITALS: O2SAT 97
[2017-08-31] MEDS ORDERED: LORAZEPAM 0.5 MG TAB PO STA (22:05)
[2017-09-01] VITALS: O2SAT 97
[2017-09-01 05:30] LABS: HEMATOCRIT 40.4 % (37-47); HEMOGLOBIN 12.9 g/dL (12.0-16.0); MEAN CORPUSCULAR HEMOGLOBIN 27.4 pg (25-34); MEAN CORPUSCULAR HGB CONC 31.9 g/dl (32-36); MEAN PLATELET VOLUME 10.2 fL (7.4-10.4); PLATELET COUNT 188 K/uL (130-400); RED CELL DISTRIBUTION WIDTH SD 47.9 fL (36.4-46.3); WHITE BLOOD COUNT 6.62 K/uL (4.8-10.8)
[2017-09-01] MEDS: LEVOTHYROXINE 88 MCG TAB PO SCH (05:31)
[2017-09-01 05:40] LABS: INR 2.1 (0.9-1.1)
[2017-09-01 06:08] LABS: CALCIUM 8.9 mg/dl (8.5-10.1); CREATININE 1.75 mg/dl (0.60-1.20); POTASSIUM 3.5 mmol/L (3.5-5.1)
[2017-09-01] MEDS: CEFTRIAXONE SOD INJ 1 GM in DEXTROSE 5% ADD-VANTAGE 50ML 50 ML IV SCH (06:17)
[2017-09-01 07:08] VITALS: BP 116/69; PULSE 72; TEMP 36.6; O2SAT 95
--- NOTE | 2017-09-01 07:39 | Family Medicine Progress Note ---
Progress Note Date of Service September 01, 2017. Medications Current Inpatient Medications Medications (Trade) Dose Ordered Sig/Terence Route Start Time Stop Time Status Last Admin Dose Admin Acetaminophen (Tylenol Tab) 650 mg Q4H PRN PO 08/30/17 00:30 09/29/17 00:29 Al Hydrox/Mg Hydrox/Simethicone (Maalox Max Susp) 15 ml Q4H PRN PO 08/30/17 00:30 09/29/17 00:29 Magnesium Hydroxide (Milk Of Magnesia Susp) 30 ml Q12H PRN PO 08/30/17 00:30 09/29/17 00:29 Zolpidem Tartrate (Ambien Tab) 5 mg HSZ PRN PO 08/30/17 00:30 09/29/17 00:29 08/31/17 23:54 5 MG Ondansetron HCl (Zofran Inj) 4 mg Q6H PRN IV 08/30/17 00:30 09/29/17 00:29 Polyethylene (Miralax Powder Packet) 17 gm DAILY PRN PO 08/30/17 00:30 09/29/17 00:29 Albuterol (Ventolin Hfa Inhaler) 2 puffs Q4 PRN INH 08/30/17 00:30 09/29/17 00:29 Allopurinol (Zyloprim Tab) 50 mg DAILY PO 08/30/17 09:00 09/29/17 08:59 08/31/17 09:17 50 MG Aspirin (Ecotrin Tab) 81 mg DAILY PO 08/30/17 09:00 09/29/17 08:59 08/31/17 09:18 81 MG Benzonatate (Tessalon Perles Cap) 100 mg TID PRN PO 08/30/17 00:30 09/29/17 00:29 Calcium/Vitamin D (Caltrate Plus Tab) 1 tab DAILY PO 08/30/17 09:00 09/29/17 08:59 08/31/17 09:17 1 TAB Docusate Sodium (coLACE CAP) 100 mg BID PO 08/30/17 09:00 09/29/17 08:59 08/31/17 21:11 100 MG Salmeterol Xinafoate/ Fluticasone (Advair Diskus 250/50 Inh) 1 puff BID INH 5/22/18 09:00 09/29/17 08:59 08/31/17 21:10 1 PUFF Furosemide (Lasix Tab) 80 mg BID PO 08/30/17 09:00 09/29/17 08:59 08/31/17 21:11 80 MG Albuterol/ Ipratropium (Duoneb) 3 ml Q4H PRN INH 08/30/17 00:30 09/29/17 00:29 Levothyroxine Sodium (Synthroid Tab) 88 mcg DAILYBB PO 08/30/17 06:30 09/29/17 06:29 09/01/17 05:31 88 MCG Metoprolol Tartrate (Lopressor Tab) 12.5 mg BID PO 08/30/17 09:00 09/29/17 08:59 08/31/17 21:11 12.5 MG Nitroglycerin (Nitrostat Tab) 0.4 mg PRN UT 08/30/17 00:30 09/29/17 00:29 Pantoprazole Sodium (Protonix Tab) 40 mg DAILY PO 08/30/17 09:00 09/29/17 08:59 08/31/17 09:18 40 MG Potassium Chloride (Klor-Con Tab) 20 meq DAILY PO 08/30/17 09:00 09/29/17 08:59 08/31/17 09:18 20 MEQ Senna/Docusate Sodium (Senokot S Tab) 1 tab DAILY PRN PO 08/30/17 00:30 09/29/17 00:29 08/31/17 09:18 1 TAB Spironolactone (Aldactone Tab) 12.5 mg DAILY PO 08/30/17 09:00 09/29/17 08:59 08/31/17 09:17 12.5 MG Tramadol HCl (Ultram Tab) 50 mg Q6 PRN PO 08/30/17 00:30 09/29/17 00:29 Miscellaneous (Iv Fluids Completed) 1 ea PRN PRN N/A 08/30/17 01:15 08/30/18 01:14 Ceftriaxone Sodium 1 gm/ Dextrose 50 ml @ 100 mls/hr Q24H IV 08/30/17 07:00 09/09/17 06:59 09/01/17 06:17 100 MLS/HR Warfarin Sodium (Coumadin Tab) 5 mg DAILY@1600 PO 08/30/17 16:00 09/29/17 15:59 08/31/17 15:58 5 MG Objective Vital Signs Date Time Temp Pulse Resp B/P (MAP) Pulse Ox O2 Delivery O2 Flow Rate FiO2 09/01/17 07:08 36.6 72 18 116/69 (85) 95 Room Air 09/01/17 00:00 97 Nasal Cannula 2.0 08/31/17 16:00 97 Room Air 08/31/17 15:12 36.4 71 18 135/80 (98) 97 Room Air 08/31/17 08:10 96 Room Air Laboratory Results 09/01/17 05:13 09/01/17 05:13 Test 09/01/17 05:13 Red Blood Count 4.70 M/uL (4.2-5.4) Mean Corpuscular Volume 86.0 fL (80-100) Mean Corpuscular Hemoglobin 27.4 pg (25-34) Mean Corpuscular Hemoglobin Concent 31.9 g/dl (32-36) RDW Standard Deviation 47.9 fL (36.4-46.3) RDW Coefficient of Variation 15.0 % (11.5-14.5) Mean Platelet Volume 10.2 fL (7.4-10.4) Prothrombin Time 21.8 SECONDS (9.0-12.0) Prothromb Time International Ratio 2.1 (0.9-1.1) Anion Gap 6.0 mmol/L (3-11) Est Creatinine Clear Calc Drug Dose 24.8 ml/min Estimated GFR () 30.5 Estimated GFR (Non- 26.3 BUN/Creatinine Ratio 17.5 (10-20) Calcium Level 8.9 mg/dl (8.5-10.1) Resident Tracking Resident Involvement: Resident Care Provided Care Provided: Adult Hospital Medicine (inpatient)
[2017-09-01] MEDS: ASPIRIN 81 MG ECTAB PO SCH (08:21)
[2017-09-01] MEDS: CALCIUM 600MG + VIT D 400 IU TAB PO SCH (08:21)
[2017-09-01] MEDS: DOCUSATE SODIUM 100 MG CAP PO SCH (08:22)
[2017-09-01] MEDS: ALLOPURINOL 100 MG TAB PO SCH (08:22)
[2017-09-01] MEDS: FUROSEMIDE 80 MG TAB PO SCH (08:22)
[2017-09-01] MEDS: POTASSIUM CHLORIDE 20 MEQ TABCR PO SCH (08:22)
[2017-09-01] MEDS: SPIRONOLACTONE 25 MG TAB PO SCH (08:22)
[2017-09-01] MEDS: METOPROLOL TARTRATE 25 MG TAB PO SCH (08:23)
[2017-09-01] MEDS: PANTOprazole SOD 40 MG TAB PO SCH (08:23)
[2017-09-01] MEDS: FLUTICASONE/SALMETEROL 250/50 (ADVAIR) 14 PUFF/1 INHALER INH SCH (08:23)
[2017-09-01 10:51] VITALS: BP 116/69; PULSE 72; TEMP 36.6; O2SAT 95
[2017-09-01] MEDS ORDERED: CEPH500C2 PO (12:01)
--- NOTE | 2017-09-01 13:39 | Discharge Instructions ---
Discharge Instructions Date of Service September 01, 2017. Admission Reason for Admission: Lower Extremity Cellulitis, Uti Discharge Discharge Diagnosis / Problem: UTI, lower extremity cellulitis Discharge Goals Goal(s): Improve function, Increase independence, Improve disease control, Learn about illness Activity Recommendations Activity Limitations: per Instructions/Follow-up section . Instructions / Follow-Up Instructions / Follow-Up You were admitted to the hospital for a urinary tract infection and likely cellulitis of both of your legs. Both of these have improved since starting antibiotics here. We recommend that you continue to take the new antibiotic Keflex over the next 3 days for continued treatment of your infections. Otherwise, your current medication list should be unchanged from before you came into the hospital. Please follow-up with your primary care provider as soon as possible for close continuity of care. Please return to the nearest emergency department if you believe any of your infections are getting worse, if you develop any abdominal pain, fever, any chest pain or shortness of breath, or with any emergent concerns. Current Hospital Diet Patient's current hospital diet: AHA Diet (Heart Healthy) Discharge Diet Recommended Diet: AHA Diet (Heart Healthy) Pending Studies Studies pending at discharge: no Medical Emergencies . Who to Call and When: Medical Emergencies: If at any time you feel your situation is an emergency, please call 911 immediately. . Non-Emergent Contact Non-Emergency issues call your: Primary Care Provider .
--- NOTE | 2017-09-01 14:10 | Discharge Summary ---
Discharge Summary Date of Service September 01, 2017. Discharge Summary Admission Date: August 30, 2017 at 00:44 Discharge Date: September 01, 2017 Discharge Disposition: Home Principal Diagnosis: Urinary tract infection Problems/Secondary Diagnoses: Bilateral lower extremity cellulitis in the setting of chronic venous insufficiency Immunizations: Have You Had Influenza Vaccine: Yes Influenza Vaccine Date: Feb 10, 2016 History of Tetanus Vaccine?: Yes Tetanus Immunization Date: Dec 05, 2007 History of Pneumococcal: Yes Pneumococcal Date: Oct 17, 2014 Procedures: Portable chest x-ray on 29 Aug 2017 IMPRESSION: No acute process. Consultations: None Medication Reconciliation New Medications: Cephalexin Monohydrate (Keflex) 500 Mg Cap 500 MG PO QID for 8 Days, #32 CAP Continued Medications: Acetaminophen (Tylenol) 500 Mg Tab 500 MG PO Q4 PRN for Pain or Fever MAX APAP = 3GM/24HRS Albuterol Hfa (Ventolin Hfa) 200 Puffs/13262 Mcg Aers 2 PUFFS INH Q4 PRN for SOB/Wheezing, #1 INHALER Allopurinol (Zyloprim) 100 Mg Tab 50 MG PO DAILY, TAB Aspirin (Aspirin 81) 81 Mg Tab 81 MG PO DAILY Benzonatate (Tessalon Perles) 100 Mg Cap 100 MG PO TID PRN for Cough Calcium/Vitamin D (Os-Tesfaye 500 Plus D) Tab 1 TAB PO DAILY, TAB Docusate Sodium (Docusate Sodium) 100 Mg Cap 100 MG PO BID Fluticasone Prop/Salmeterol (Advair Diskus 250/50 60 Dose) 1 Ea Aerp 1 PUFF INH BID, INHALER Furosemide (Furosemide) 80 Mg Tab 80 TAB PO BID Ipratropium-Albuterol (Duoneb) 3 Ml Nebu 3 ML INH Q4H PRN for SOB/Wheezing, INHA Levothyroxine Sodium (Levothyroxine Sodium) 88 Mcg Tab 88 MCG PO DAILY Metoprolol Tartrate (Lopressor) (Lopressor) 25 Mg Tab 12.5 MG PO BID, TAB Nitroglycerin (Nitrostat) 0.4 Mg Tab 0.4 MG UT PRN, BTL Pantoprazole (Protonix) 40 Mg Tab 40 MG PO DAILY Potassium Ext Rel (Klor-Con) 20 Meq Tabcr 20 MEQ PO DAILY, TAB CUT IN HALF AND PUT IN YOGURT. Senna/Docusate Sod (Senokot S) 1 Tab Tab 1 TAB PO DAILY PRN for Constipation, TAB Spironolactone (Aldactone) 25 Mg Tab 12.5 MG PO DAILY, TAB Tramadol (Ultram) 50 Mg Tab 50 MG PO Q6 PRN for Pain, TAB Warfarin Sod (Jantoven) 2 Mg Tab 2 MG PO 3XWK TAKE EVERY TUESDAY/TUESDAY/TUESDAY ALONG WITH 4MG = 6MG THREE TIMES WEEKLY. Warfarin Sodium (Warfarin Sodium) 4 Mg Tab 4 MG PO DAILY Discharge Exam General Appearance: Awake, alert but only oriented to herself, her date of and that she is in [place], comfortable in general, NAD. CV: +S1S2 RRR, no murmur. Pulm: Clear to auscultation throughout. Abdomen: +BS, soft, non-tender, non-distended. Extremities: Moving all extremities naturally and easily. Bilateral lower extremities have chronic erythema with questionable overlying increased redness. At time of discharge, no tenderness over bilateral erythematous yepez areas. No present edema. Neuro: No gross neuro deficits. Review of Systems: Constitutional: No fever, No chills Respiratory: No cough, No dyspnea at rest Cardiovascular: No chest pain, No edema Abdomen: No pain, No nausea, No vomiting, No diarrhea Integumentary: + rash, + new/changing skin lesions Hospital Course HPI at time of admission on August 30, 2017 at 00:10 82F with a PMHx of COPD, Ventricularly paced Rhythm, CHF, hypothyroidism is presenting from [facility] for a cardiac assessment. History of limited due to either patient's dementia or acute worsened mental status. Patient states that her stomach and legs hurt. She states that her stomach has been hurting for one day and that her legs have been hurting for one week. Patient states that she has had a heart attack in the past but doesn't think she currently is having a heart attack. She at present denies chest pain. Patient is able to tell me where she lives ([facility] in [place]), she is able to tell me her name and the name of the hospital ([facility]), she does state that the year is 1917. Patient states that she ambulates on her own. I briefly left the room and the patient asked me if I was going to [place]. Otherwise the patient speaks and answers questions appropriately. 82-year-old female admitted on 30 Aug 2017 for evaluation of leg pain and abdominal pain. PMH: Hypertension, hyperlipidemia, GERD, hypothyroidism, COPD, tachybradycardia syndrome, A. fib, cellulitis, osteoarthritis, diastolic CHF, gout, dementia Cardiac evaluation: Apparently part of her referral from [facility] was for cardiac rule out. The patient has a history of an DC but denies any present chest pain. Chest x-ray was clear. EKG showed no acute changes. Troponin 3 was negative. Throughout her hospitalization she did not complain of any chest pain, abdominal pain, had no difficulty tolerating a diet, and had no tenderness to abdominal palpation. UTI: Urine culture grew pansensitive E. coli. She was initially started on Rocephin on 22May which was converted to Keflex at time of discharge. Plans total antibiotic course for 10 days. Suspected bilateral lower extremity cellulitis in the setting of chronic venous insufficiency: Initially the patient's tibial regions were tender to palpation. This improved while on ceftriaxone. Her nasal MRSA is negative. Her blood cultures 2 showed no growth to date as well. The transition to Keflex should cover for common skin manoj. We discussed the same with the patient and her son. Was recommended that on completion of her antibiotic course that they take a picture of her legs as a baseline of her erythema. His may be useful in case patient has future concerns for cellulitis. Chronic medical issues: - COPD: Patient normally takes 2L O2 at nighttime and with ambulation. Patient is currently at baseline. There is no indication of an acute exacerbation. Will continue home Advair and Albuterol PRN. - Chronic Diastolic CHF: EF 55% per 2017 echo. Patient is currently euvolemic without evidence of exacerbation. Continue home meds including daily BID Lasix , BID lopressor and daily Aldactone. Continue ASA daily. 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 She is on Coumadin for anticoagulation and is at target INR 2.0-3.0. - Hypothyroidism: Continue with home dose of Synthroid - CKD: Cr ranged between 1.5-1.7, which is currently around her baseline. - Gout: Continue home dose of allopurinol. Total Time Spent: Greater than 30 minutes This includes examination of the patient, discharge planning, medication reconciliation, and communication with other providers. Discharge Instructions Please refer to the electronic Patient Visit Report (Discharge Instructions) for additional information. Additional Copies To [facility] Resident Tracking Resident Involvement: Resident Care Provided Care Provided: Adult Hospital Medicine (Inpatient) Assessment/Plan Resident Physician Supervision Note: I was present with Dr. White during the history and exam. I discussed the case with the resident and agree with the findings and plan as documented in the note. Any exceptions or clarifications are listed here: Pt seen and examined at bedside. No recurrence of chest discomfort. Bilateral lower extremity pain has resolved. No further urinary complaints. UCx growing E. coli, senior-sensitive. Cr at baseline. Keflex for cellulitis and UTI. Encourage photographing venous stasis at baseline for use in future evaluations. Else as noted in resident documentation.
== END 2017-09-01 14:05 | disposition home or self-care (01) ==
LOC: EDBD 20:45 → C.EDB 20:46 → C.MED 08-30 00:44 → ENRESERV 08-30 01:00
PROVIDERS: ADMIT Family Medicine; ATTEND Family Medicine
DX: N39.0 Urinary tract infection, site not specified (principal); L03.116 Cellulitis of left lower limb; L03.115 Cellulitis of right lower limb; J44.9 Chronic obstructive pulmonary disease, unspecified; E03.9 Hypothyroidism, unspecified; F03.90 Unspecified dementia, unspecified severity, without behavioral disturbance, psychotic disturbance, mood disturbance, and anxiety; I49.5 Sick sinus syndrome; M19.90 Unspecified osteoarthritis, unspecified site; N18.3 Chronic kidney disease, stage 3 (moderate); Z87.891 Personal history of nicotine dependence; E78.5 Hyperlipidemia, unspecified; Z90.89 Acquired absence of other organs; Z90.49 Acquired absence of other specified parts of digestive tract; Z90.710 Acquired absence of both cervix and uterus; Z96.659 Presence of unspecified artificial knee joint; Z88.5 Allergy status to narcotic agent; Z79.899 Other long term (current) drug therapy; Z79.82 Long term (current) use of aspirin; Z79.01 Long term (current) use of anticoagulants

== ENCOUNTER → 2017-10-27 | Outpatient (CLI) | payer OTHER ==
[~2017-10-27] MED LIST changes: +BENZ100C84 PO; +BISA10SU3 PR; -CALC0.2510 PO; +CIPR-255 PO; -DOXY100C76 PO; +IPRA-64 INH; -IPRASOL4 INH; +LEVO88TA3 PO; +METR-163 PO; +MOML PO; -PANT40TA PO; -PRED10TA PO; +PRLSR20 PO; -SENN-65 PO; +SODI1ENE PR; +SPIR25TA5 PO; -SPIR25TA89 PO; -WARF-283 PO; +WARF2.5T8 PO; -WARF2TAB8 PO; +WARF5TAB7 PO
[2017-10-27 09:23] LABS: INR 3.1 (0.9-1.1)
== END ==
LOC: C.LABCC 08:25
PROVIDERS: ATTEND Internal Medicine
DX: I48.91 Unspecified atrial fibrillation (principal)

== ENCOUNTER → 2017-11-07 | Outpatient (CLI) | payer OTHER ==
[2017-11-07 10:09] LABS: INR 1.3 (0.9-1.1)
== END | disposition home or self-care (01) ==
LOC: C.LABCC 08:06
PROVIDERS: ATTEND Internal Medicine
DX: I48.91 Unspecified atrial fibrillation (principal)

== ENCOUNTER → 2017-11-15 | Outpatient (CLI) | payer OTHER ==
[2017-11-15 10:55] LABS: INR 1.5 (0.9-1.1)
== END ==
LOC: C.LABCC 08:52
PROVIDERS: ATTEND Internal Medicine
DX: I48.91 Unspecified atrial fibrillation (principal)

== ENCOUNTER → 2017-11-16 | Outpatient (CLI) | payer OTHER ==
[2017-11-16 10:06] LABS: BLOOD UREA NITROGEN 33 mg/dl (7-18); CALCIUM 9.1 mg/dl (8.5-10.1); CARBON DIOXIDE 30 mmol/L (21-32); CREATININE 1.69 mg/dl (0.60-1.20); GLUCOSE 81 mg/dl (70-99); POTASSIUM 3.5 mmol/L (3.5-5.1); SODIUM 137 mmol/L (136-145)
== END ==
LOC: C.LABCC 09:14
PROVIDERS: ATTEND Internal Medicine
DX: N18.9 Chronic kidney disease, unspecified (principal)

== ENCOUNTER → 2017-11-21 | Outpatient (CLI) | payer OTHER ==
[~2017-11-21] MED LIST changes: +OXYC-57 PO
[2017-11-21 10:02] LABS: INR 3.6 (0.9-1.1)
== END ==
LOC: C.LABCC 08:03
PROVIDERS: ATTEND Internal Medicine
DX: I48.91 Unspecified atrial fibrillation (principal)

== ENCOUNTER 2017-11-25 07:31 | Emergency (ER) | payer OTHER ==
[~2017-11-25 07:31] MED LIST changes: -OXYC-57 PO
[2017-11-25 07:36] VITALS: TEMP 36.6
--- NOTE | 2017-11-25 07:52 | EMERGENCY ROOM VISIT NOTE ---
History Report prepared by Rufina: Spenser Armstrong Under the Supervision of: Dr. Alvino Ng M.D. First contact with patient: 07:34 Chief Complaint: FALL Stated Complaint: LT SIDED HIP PAIN S/P FALL History of Present Illness This history is limited second to dementia. The patient is an 82 year old female who presents to the Emergency Room following a fall that occurred at 2300 last night, 8 hours and 45 minutes ago. The fall was unwitnessed. She is complaining of pain in her left hip. Per nursing staff the patient has a history of dementia. Nursing also notes that the patient was unable to walk since the fall. She does have a bruise over the left hip. 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 A total of 10 systems reviewed and were otherwise negative. 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 (12) UTI (urinary tract infection) Surgical Problems: (1) History of appendectomy (2) History of cholecystectomy (3) History of hysterectomy (4) History of knee replacement (5) History of lumbar laminectomy for spinal cord decompression (6) History of tonsillectomy (7) History of total right hip arthroplasty (8) History of tubal ligation (9) S/P placement of cardiac pacemaker (10) S/P tonsillectomy and adenoidectomy Family History No pertinent family history Social History Smoking Status: Unknown if Ever Smoked Alcohol Use: none Drug Use: none Marital Status: Housing Status: [facility] Occupation Status: retired Current/Historical Medications Scheduled Allopurinol (Zyloprim), 50 MG PO DAILY Aspirin (Aspirin 81), 81 MG PO DAILY Calcium/Vitamin D (Os-Tesfaye 500 Plus D), 1 TAB PO DAILY Docusate Sodium (Docusate Sodium), 100 MG PO BID Fluticasone Prop/Salmeterol (Advair Diskus 250/50 60 Dose), 1 PUFF INH BID Furosemide (Furosemide), 80 TAB PO BID Levothyroxine Sodium (Levothyroxine Sodium), 88 MCG PO DAILY Metoprolol Tartrate (Lopressor) (Lopressor), 12.5 MG PO BID Nitroglycerin (Nitrostat), 0.4 MG UT PRN Omeprazole (Prilosec), 20 MG PO DAILY Potassium Ext Rel (Klor-Con), 20 MEQ PO DAILY Spironolactone (Aldactone), 12.5 MG PO DAILY Warfarin Sod (Jantoven), 2.5 MG PO WK Warfarin Sod (Jantoven), 5 MG PO DAILY Scheduled PRN Acetaminophen (Tylenol), 1,000 MG PO BID PRN for PAIN MANAGEMENT Albuterol Hfa (Ventolin Hfa), 2 PUFFS INH Q4 PRN for SOB/Wheezing Benzonatate (Tessalon Perles), 100 MG PO Q8 PRN for Cough Bisacodyl (Dulcolax), 1 SUPP OR UD PRN for Constipation Magnesium Hydroxide (Milk Of Magnesia), 30 ML PO UD PRN for Constipation Oxycodone/Acetaminophen 5MG/325MG (Percocet 5MG/325MG), 1 TABLET PO Q6 PRN for Pain Sodium Phosphates (Fleet Enema Six Pack), 1 DOSE OR UD PRN for Constipation Tramadol (Ultram), 50 MG PO Q6 PRN for Pain Allergies Coded Allergies: Morphine and Related (Unverified Allergy, Intermediate, ., 11/25/17) Oxycodone (Verified Adverse Reaction, Intermediate, ALTERED MENTAL STATUS , N/V, 11/25/17) Alcohol (Verified Adverse Reaction, Mild, PASSES OUT WITH A SIP, 11/25/17) Codeine (Verified Adverse Reaction, Mild, N/V - RECEIVED MORPHINE ON PRIOR ADMIT W/O RXN, 11/25/17) PER PT: PASSED OUT AFTER CODEINE 30YRS AGO. Physical Exam Vital Signs Date Time Temp Pulse Resp B/P (MAP) Pulse Ox O2 Delivery O2 Flow Rate FiO2 11/25/17 09:47 70 18 142/81 96 Room Air 11/25/17 09:19 72 18 115/87 97 Room Air 11/25/17 08:56 70 11/25/17 08:48 73 18 144/81 97 Room Air 11/25/17 07:36 36.6 84 17 124/77 94 Room Air Physical Exam GENERAL: Awake, alert, well-appearing, in no acute distress HENT: Normocephalic, atraumatic. Oropharynx unremarkable. EYES: Normal conjunctiva. Sclera non-icteric. NECK: Supple. No nuchal rigidity. FROM. No JVD. RESPIRATORY: Clear to auscultation. CARDIAC: Regular rate, normal rhythm. Extremities warm and well perfused. Pulses equal. ABDOMEN: Soft, non-distended. No tenderness to palpation. No rebound or guarding. No masses. RECTAL: Deferred. MUSCULOSKELETAL: Chest examination reveals no tenderness. The back is symmetrical on inspection without obvious abnormality. There is no CVA tenderness to palpation. No joint edema. LOWER EXTREMITIES: Calves are equal size bilaterally and non-tender. There is a 4x4 inch contusion to the left hip area. NEURO: Normal sensorium. 4/5 strength in the LLE. SKIN: No rash or jaundice noted. Medical Decision & Procedures ER Provider Diagnostic Interpretation: Radiology results as stated below per my review and radiologist interpretation: CHEST 1 VW FRONT-NOT PORTABLE CLINICAL HISTORY: 82 years-old Female presenting with LT HIP PAIN. TECHNIQUE: Portable upright AP view of the chest was obtained. COMPARISON: 10/23/2017. FINDINGS: Left subclavian pacer with leads to the right atrium and right ventricular apex. Atherosclerosis of the aortic arch. Cardiac silhouette top normal in size, decreased from prior. Trace left pleural effusion may be present. No focal opacity. No pneumothorax. A calcified granuloma may be present at the left apex. Suspected osteopenia. Degenerative changes of the left glenohumeral joint. Upper abdomen normal. IMPRESSION: 1. Trace left pleural effusion suspected. Otherwise no acute cardiopulmonary disease. Electronically signed by: López Whitfield M.D. 11/25/2017 8:58 AM Dictated Date/Time: 11/25/2017 8:57 AM PELVIS 1 OR 2 VIEW ROUTINE, L FEMUR 2 VIEWS ROUTINE CLINICAL HISTORY: Pt c/o left hip pain COMPARISON STUDY: Pelvis 12/31/2013. FINDINGS: Bilateral total hip arthroplasties. The hardware is intact. The bones are osteopenic. No fracture or dislocation within the pelvis or hips. The sacrum appears intact. Mild vascular calcifications. Left lateral hip soft tissue swelling/contusion. No acute fractures within the left femur. There is a left total knee arthroplasty. IMPRESSION: No fracture or dislocation within the pelvis or hips. Electronically signed by: Lewis Hernandez M.D. 11/25/2017 8:58 AM Dictated Date/Time: 11/25/2017 8:56 AM HEAD WITHOUT CONTRAST (CT) CLINICAL HISTORY: 82 years-old Female presenting with Pt c/o fall last night, on Coumadin. TECHNIQUE: Multidetector CT imaging of the head was performed without the use of intravenous contrast. IV contrast: None. A dose lowering technique was used consistent with the principles of ALARA (as low as reasonably achievable). COMPARISON: 03/22/2011. CT DOSE (mGy.cm): The estimated cumulative dose is 844.62 mGy.cm. FINDINGS: The scan was partially repeated due to motion and streak artifact resulting in the examination of image quality. Conche Operator topogram: Unremarkable. Proportional ventricular and sulcal prominence, likely age-related parenchymal volume loss. Periventricular and subcortical white matter hypoattenuation, nonspecific but likely indicative of chronic small vessel ischemic change. Apparent hypodensity in the left occipital region is felt to most likely be artifactual as this is not apparent on both scan attempts. No mass effect or midline shift. No hemorrhage or acute territorial infarct. No extra-axial fluid collection. Paranasal sinuses and mastoid air cells clear. Calvarium intact. IMPRESSION: 1. Chronic small vessel ischemic change. No acute intracranial abnormality. Electronically signed by: López Whitfield M.D. 11/25/2017 8:32 AM Dictated Date/Time: 11/25/2017 8:27 AM PELVIS 1 OR 2 VIEW ROUTINE, L FEMUR 2 VIEWS ROUTINE CLINICAL HISTORY: Pt c/o left hip pain COMPARISON STUDY: Pelvis 12/31/2013. FINDINGS: Bilateral total hip arthroplasties. The hardware is intact. The bones are osteopenic. No fracture or dislocation within the pelvis or hips. The sacrum appears intact. Mild vascular calcifications. Left lateral hip soft tissue swelling/contusion. No acute fractures within the left femur. There is a left total knee arthroplasty. IMPRESSION: No fracture or dislocation within the pelvis or hips. Electronically signed by: Lewis Hernandez M.D. 11/25/2017 8:58 AM Dictated Date/Time: 11/25/2017 8:56 AM Laboratory Results 11/25/17 08:00 Red Blood Count 4.97, Mean Corpuscular Volume 86.1, Mean Corpuscular Hemoglobin 27.8, Mean Corpuscular Hemoglobin Concent 32.2, Mean Platelet Volume 11.7, Neutrophils (%) (Auto) 73.0, Lymphocytes (%) (Auto) 14.1, Monocytes (%) (Auto) 10.0, Eosinophils (%) (Auto) 2.1, Basophils (%) (Auto) 0.6, Neutrophils # (Auto ) 4.83, Lymphocytes # (Auto) 0.93, Monocytes # (Auto) 0.66, Eosinophils # (Auto ) 0.14, Basophils # (Auto) 0.04 11/25/17 08:00 Test 11/25/17 08:00 White Blood Count 6.61 K/uL (4.8-10.8) Red Blood Count 4.97 M/uL (4.2-5.4) Hemoglobin 13.8 g/dL (12.0-16.0) Hematocrit 42.8 % (37-47) Mean Corpuscular Volume 86.1 fL (80-100) Mean Corpuscular Hemoglobin 27.8 pg (25-34) Mean Corpuscular Hemoglobin Concent 32.2 g/dl (32-36) Platelet Count 180 K/uL (130-400) Mean Platelet Volume 11.7 fL (7.4-10.4) Neutrophils (%) (Auto) 73.0 % Lymphocytes (%) (Auto) 14.1 % Monocytes (%) (Auto) 10.0 % Eosinophils (%) (Auto) 2.1 % Basophils (%) (Auto) 0.6 % Neutrophils # (Auto) 4.83 K/uL (1.4-6.5) Lymphocytes # (Auto) 0.93 K/uL (1.2-3.4) Monocytes # (Auto) 0.66 K/uL (0.11-0.59) Eosinophils # (Auto) 0.14 K/uL (0-0.5) Basophils # (Auto) 0.04 K/uL (0-0.2) RDW Standard Deviation 48.4 fL (36.4-46.3) RDW Coefficient of Variation 15.5 % (11.5-14.5) Immature Granulocyte % (Auto) 0.2 % Immature Granulocyte # (Auto) 0.01 K/uL (0.00-0.02) Prothrombin Time 62.2 SECONDS (9.0-12.0) Prothromb Time International Ratio 6.1 (0.9-1.1) Activated Partial Thromboplast Time 40.3 SECONDS (21.0-31.0) Partial Thromboplastin Ratio 1.5 Anion Gap 7.0 mmol/L (3-11) Estimated GFR () 28.3 Estimated GFR (Non- 24.4 BUN/Creatinine Ratio 19.9 (10-20) Calcium Level 10.0 mg/dl (8.5-10.1) Labs reviewed by ED physician. Medications Administered Medications (Trade) Dose Ordered Sig/Terence Route Start Time Stop Time Status Last Admin Dose Admin Phytonadione (Mephyton Tab) 1 mg NOW STAT PO 11/25/17 09:06 11/25/17 09:07 DC 11/25/17 09:17 1 MG ECG Per My Interpretation Indication: other (Paced rhythm) Rate (beats per minute): 72 Findings: paced rhythm, other (No MAY/STD) ED Course 0741: Past medical records reviewed. The patient was evaluated in room A10. A complete history and physical examination was performed. 09: Ordered Phytonadione 1 mg PO. 0926: The nursing staff is up and walking around with her walker at this time, the nursing staff states she has passed ambulatory trail. I discussed results and treatment plan with the patient. She verbalizes agreement and understanding. The patient is ready for discharge. Medical Decision Prior records/ancillary studies reviewed. Triage Nursing notes reviewed. Differential diagnosis: Etiologies such as fracture, dislocation, intra-abdominal, pneumothorax, intrathoracic , intracranial, neurologic, as well as other traumatic pathologies were entertained. This is an 82-year-old female who presents emergency department complaining of contusion to her left hip after a fall. The patient is on Coumadin and INR level was checked. This is found to be 6. X-rays do not show any evidence of fracture dislocation to the left hip. Patient was also sent for CAT scan of the head which did not show any acute abnormality. Based on these findings I feel the patient to be safely discharged home. She was given 1 mg of vitamin K here in the emergency department and instructions were given to the [facility] to hold Coumadin until Tuesday when an INR level can be checked. Patient was in agreement with the treatment plan. Medication Reconcilliation Current Medication List: was personally reviewed by me Blood Pressure Screening Patient's blood pressure: Normal blood pressure Impression Primary Impression: Supratherapeutic INR Additional Impressions: Contusion Fall Scribe Attestation The scribe's documentation has been prepared under my direction and personally reviewed by me in its entirety. I confirm that the note above accurately reflects all work, treatment, procedures, and medical decision making performed by me. Departure Information Dispostion Home / Self-Care Referrals [facility] (PCP) Forms HOME CARE DOCUMENTATION FORM, IMPORTANT VISIT INFORMATION Patient Instructions My [facility] Additional Instructions Hold Coumadin for 2 days, Have level rechecked Tuesday Morning (INR=6) You have been examined and treated today on an emergency basis only. This is not a substitute for, or an effort to provide, complete comprehensive medical care. It is impossible to recognize and treat all injuries or illnesses in a single emergency department visit. It is therefore important that you follow up closely with your PCP. Call as soon as possible for an appointment. Thank you for your time and consideration. I look forward to speaking with you again soon. Please don't hesitate to call us if you have any questions. Problem Qualifiers Additional Impressions: Contusion Encounter type: initial encounter Contusion area: pelvic area Qualified Codes: S30.0XXA - Contusion of lower back and pelvis, initial encounter Fall Encounter type: initial encounter Qualified Codes: W19.XXXA - Unspecified fall, initial encounter
[2017-11-25] MEDS ORDERED: OXYC-57 PO (07:58)
[2017-11-25 08:11] LABS: BASO % 0.6 %; BASO ABS # 0.04 K/uL (0-0.2); EOS % 2.1 %; EOS ABS # 0.14 K/uL (0-0.5); HEMATOCRIT 42.8 % (37-47); HEMOGLOBIN 13.8 g/dL (12.0-16.0); IG# 0.01 K/uL (0.00-0.02); LYMPH % 14.1 %; LYMPH ABS # 0.93 K/uL (1.2-3.4); MEAN CELL VOLUME 86.1 fL (80-100); MEAN CORPUSCULAR HEMOGLOBIN 27.8 pg (25-34); MEAN CORPUSCULAR HGB CONC 32.2 g/dl (32-36); MEAN PLATELET VOLUME 11.7 fL (7.4-10.4); MONO ABS # 0.66 K/uL (0.11-0.59); NEUT ABS # 4.83 K/uL (1.4-6.5); PLATELET COUNT 180 K/uL (130-400); RED CELL DISTRIBUTION WIDTH CV 15.5 % (11.5-14.5); RED CELL DISTRIBUTION WIDTH SD 48.4 fL (36.4-46.3); WHITE BLOOD COUNT 6.61 K/uL (4.8-10.8)
[2017-11-25 08:27] LABS: PTT PATIENT 40.3 SECONDS (21.0-31.0)
[2017-11-25 08:28] LABS: BLOOD UREA NITROGEN 37 mg/dl (7-18); CARBON DIOXIDE 32 mmol/L (21-32); CREATININE 1.86 mg/dl (0.60-1.20); GLUCOSE 95 mg/dl (70-99); INR 6.1 (0.9-1.1); SODIUM 137 mmol/L (136-145)
--- NOTE | 2017-11-25 08:34 | DIAGNOSTIC IMAGING REPORT ---
HEAD WITHOUT CONTRAST (CT) CLINICAL HISTORY: 82 years-old Female presenting with Pt c/o fall last night, on Coumadin. TECHNIQUE: Multidetector CT imaging of the head was performed without the use of intravenous contrast. IV contrast: None. A dose lowering technique was used consistent with the principles of ALARA (as low as reasonably achievable). COMPARISON: 03/22/2011. CT DOSE (mGy.cm): The estimated cumulative dose is 844.62 mGy.cm. FINDINGS: The scan was partially repeated due to motion and streak artifact resulting in the examination of image quality. Physics Instructor topogram: Unremarkable. Proportional ventricular and sulcal prominence, likely age-related parenchymal volume loss. Periventricular and subcortical white matter hypoattenuation, nonspecific but likely indicative of chronic small vessel ischemic change. Apparent hypodensity in the left occipital region is felt to most likely be artifactual as this is not apparent on both scan attempts. No mass effect or midline shift. No hemorrhage or acute territorial infarct. No extra-axial fluid collection. Paranasal sinuses and mastoid air cells clear. Calvarium intact. IMPRESSION: 1. Chronic small vessel ischemic change. No acute intracranial abnormality. Electronically signed by: López Whitfield M.D. 11/25/2017 8:32 AM Dictated Date/Time: 11/25/2017 8:27 AM
--- NOTE | 2017-11-25 08:59 | DIAGNOSTIC IMAGING REPORT ---
CHEST 1 VW FRONT-NOT PORTABLE CLINICAL HISTORY: 82 years-old Female presenting with LT HIP PAIN. TECHNIQUE: Portable upright AP view of the chest was obtained. COMPARISON: 10/23/2017. FINDINGS: Left subclavian pacer with leads to the right atrium and right ventricular apex. Atherosclerosis of the aortic arch. Cardiac silhouette top normal in size, decreased from prior. Trace left pleural effusion may be present. No focal opacity. No pneumothorax. A calcified granuloma may be present at the left apex. Suspected osteopenia. Degenerative changes of the left glenohumeral joint. Upper abdomen normal. IMPRESSION: 1. Trace left pleural effusion suspected. Otherwise no acute cardiopulmonary disease. Electronically signed by: López Whitfield M.D. 11/25/2017 8:58 AM Dictated Date/Time: 11/25/2017 8:57 AM
--- NOTE | 2017-11-25 09:00 | DIAGNOSTIC IMAGING REPORT ---
PELVIS 1 OR 2 VIEW ROUTINE, L FEMUR 2 VIEWS ROUTINE CLINICAL HISTORY: Pt c/o left hip pain COMPARISON STUDY: Pelvis 12/31/2013. FINDINGS: Bilateral total hip arthroplasties. The hardware is intact. The bones are osteopenic. No fracture or dislocation within the pelvis or hips. The sacrum appears intact. Mild vascular calcifications. Left lateral hip soft tissue swelling/contusion. No acute fractures within the left femur. There is a left total knee arthroplasty. IMPRESSION: No fracture or dislocation within the pelvis or hips. Electronically signed by: Lewis Hernandez M.D. 11/25/2017 8:58 AM Dictated Date/Time: 11/25/2017 8:56 AM
[2017-11-25] MEDS ORDERED: PHYTONADIONE 5 MG TAB PO STA (09:06)
[2017-11-25 09:47] VITALS: BP 142/81; PULSE 70; O2SAT 96
== END 2017-11-25 09:49 ==
LOC: C.EDB 07:32 → C.EDA 09:49
DX: S70.02XA Contusion of left hip, initial encounter (principal); W19.XXXA Unspecified fall, initial encounter; Y92.199 Unspecified place in other specified residential institution as the place of occurrence of the external cause; F03.90 Unspecified dementia, unspecified severity, without behavioral disturbance, psychotic disturbance, mood disturbance, and anxiety; R79.1 Abnormal coagulation profile; I48.2 Chronic atrial fibrillation; M19.90 Unspecified osteoarthritis, unspecified site; N18.3 Chronic kidney disease, stage 3 (moderate); I13.0 Hypertensive heart and chronic kidney disease with heart failure and stage 1 through stage 4 chronic kidney disease, or unspecified chronic kidney disease; I50.30 Unspecified diastolic (congestive) heart failure; E78.5 Hyperlipidemia, unspecified; K21.9 Gastro-esophageal reflux disease without esophagitis; E03.9 Hypothyroidism, unspecified; J44.9 Chronic obstructive pulmonary disease, unspecified; Z87.440 Personal history of urinary (tract) infections; Z90.49 Acquired absence of other specified parts of digestive tract; Z90.710 Acquired absence of both cervix and uterus; Z96.659 Presence of unspecified artificial knee joint; Z96.641 Presence of right artificial hip joint; Z98.51 Tubal ligation status; Z95.0 Presence of cardiac pacemaker; Z79.82 Long term (current) use of aspirin; Z79.899 Other long term (current) drug therapy; Z79.01 Long term (current) use of anticoagulants; Z88.5 Allergy status to narcotic agent

== ENCOUNTER → 2017-11-29 | Outpatient (CLI) | payer OTHER ==
[~2017-11-29] MED LIST changes: -CIPR-255 PO; -IPRA-64 INH; -METR-163 PO; +OXYC-57 PO
[2017-11-29 09:32] LABS: INR 1.8 (0.9-1.1)
== END ==
LOC: C.LABCC 08:53
PROVIDERS: ATTEND Internal Medicine
DX: I48.91 Unspecified atrial fibrillation (principal)

== ENCOUNTER → 2017-12-01 | Outpatient (CLI) | payer OTHER ==
[2017-12-01 09:07] LABS: INR 1.3 (0.9-1.1)
== END ==
LOC: C.LABCC 08:40
PROVIDERS: ATTEND Internal Medicine
DX: I48.91 Unspecified atrial fibrillation (principal)

== ENCOUNTER 2019-03-07 03:37 | Inpatient (IN) ==
[2019-03-07] MEDS ORDERED: LEVALBUTEROL HCL 1.25 MG/3 ML NEB NEB STA ×3 (03:41→03:43)
[2019-03-07] MEDS ORDERED: MAGNESIUM SULFATE / D5W 1 GM/100 ML BAG IV ONE (03:42)
[2019-03-07] MEDS ORDERED: ACETAMINOPHEN 1,000 MG/100 ML VIAL IV STA (03:43)
[2019-03-07] MEDS ORDERED: ALBUT/IPRATROP 3MG/0.5MG NEB 3 ML VIAL ONE (03:57)
[2019-03-07] MEDS: LEVALBUTEROL HCL 1.25 MG/3 ML NEB NEB STA (03:59)
[2019-03-07 04:09] LABS: Appearance Urine Cloudy (Clear); Bacteria Urine Automated 3+ (Negative); Bilirubin Urine Negative (Negative); Blood Urine 2+ (Negative); Color Urine Yellow; Epithelial Cell Urine Auto 0-5 /lpf (0-5); Glucose Urine UA Negative (Negative); Ketones Urine Negative (Negative); Leukocyte Esterase Urine 3+ (Negative); Nitrite Urine Negative (Negative); Protein Urine Trace (Negative); Specific Gravity Urine 1.013 (1.000-1.030); Urobilinogen Urine Negative (Negative); WBC Urine Automated >30 /hpf (0-5); pH Urine 5.5 (4.5-7.5)
[2019-03-07] MEDS ORDERED: LEVOFLOXACIN/D5W 750 MG/150 ML BAG IV STA (04:16)
[2019-03-07] MEDS ORDERED: PIPERACILLIN/TAZOBACTAM 4.5 GM/120 ML BAG IV ONE (04:16)
[2019-03-07] MEDS ORDERED: PIPERACILL/TAZOBAC CONSULT ACTIVE PRN ×2 (04:16→06:20)
[2019-03-07 04:24] LABS: Basophils # (auto) 0.01 K/uL (0-0.2); Basophils % (auto) 0.1 %; Hematocrit (blood only) 34.3 % (37-47); Hemoglobin 10.6 g/dL (12.0-16.0); Immature Granulocytes # (auto) 0.04 K/uL (0.00-0.02); Immature Granulocytes % (auto) 0.4 %; Lymphocytes # (auto) 0.18 K/uL (1.2-3.4); Lymphocytes % (auto) 1.7 %; Mean Corpuscular Hemoglobin 27.1 pg (25-34); Mean Corpuscular Hgb Conc 30.9 g/dL (32-36); Mean Corpuscular Volume 87.7 fL (80-100); Mean Platelet Volume 10.3 fL (7.4-10.4); Monocytes # (auto) 0.45 K/uL (0.11-0.59); Monocytes % (auto) 4.2 %; Neutrophils # (auto) 9.97 K/uL (1.4-6.5); Neutrophils % (auto) 93.6 %; Platelet Count 154 K/uL (130-400); RDW Coefficient of Variation 16.4 % (11.5-14.5); Red Blood Count 3.91 M/uL (4.2-5.4); White Blood Count 10.65 K/uL (4.8-10.8)
[2019-03-07] MEDS ORDERED: methylPREDNISolone 125 MG/2 ML VIAL IV STA (04:31)
[2019-03-07] MEDS ORDERED: SODIUM CHLORIDE 0.9% 1000ML 1,000 ML IV ONE (04:31)
[2019-03-07 04:39] LABS: INR 1.3 (0.9-1.1); Partial Thromboplastin Ratio 0.9; Partial Thromboplastin Time 25.1 Seconds (21.0-31.0); Prothrombin Time 12.7 Seconds (9.0-12.0)
[2019-03-07 04:47] LABS: Alanine Aminotransferase 33 U/L (12-78); Albumin Globulin Ratio 0.8 (0.9-2); Albumin Level 2.9 gm/dl (3.4-5.0); Alkaline Phosphatase 168 U/L (45-117); Aspartate Aminotransferase 46 U/L (15-37); BUN Creatinine Ratio 27.5 (10-20); Bilirubin,Total 1.4 mg/dl (0.2-1); Blood Urea Nitrogen 42 mg/dl (7-18); Calcium 8.6 mg/dl (8.5-10.1); Carbon Dioxide 26 mmol/L (21-32); Chloride 102 mmol/L (98-107); Creatine Kinase 70 U/L (26-192); Creatine Kinase MB < 1.0 ng/ml (0.5-3.6); Est GFR (African American) 35.1; Est GFR (Non-African American) 30.2; Globulin 3.5 gm/dl (2.5-4.0); Glucose 109 mg/dl (70-99); NT Pro B Type Natriuretic Pept 7018 pg/ml (0-1800); Potassium 4.3 mmol/L (3.5-5.1); Sodium 137 mmol/L (136-145); Total Protein 6.4 gm/dl (6.4-8.2); Troponin I < 0.015 ng/ml (0-0.045)
[2019-03-07] MEDS ORDERED: FUROSEMIDE 40 MG/4 ML VIAL IV STA (04:52)
[2019-03-07 05:06] LABS: Influenza A virus by PCR Neg for Influ A (Neg); Influenza B virus by PCR Neg for Influ B (Neg)
--- NOTE | 2019-03-07 05:35 | Emergency Department Note ---
History of Present Illness General Chief complaint: Shortness of Breath/Dyspnea Stated complaint: SHORT OF BREATH/ALTERED MENTAL STATUS Source: patient, EMS, RN notes reviewed and old records reviewed Mode of arrival: EMS Limitations: no limitations History of Present Illness Provider complaint: fever, shortness of breath Onset (ago): hour(s) 2 Location: chest Radiation: non-radiation Severity: severe Maximum Pain Intensity: 0 Current Pain Intensity: 0 Relieved By: + rest Exacerbated By: + movement Associated symptoms: + confusion and + fever/chills Treatments prior to arrival: other (Oxygen) This is an 84-year-old female who was sent in from her [facility] over concerns of the patient is hypoxic confused. Upon arrival to the emergency department the patient has no complaints however is extremely short of breath. She denies any chest or abdominal pain. She has not taken anything for the fever prior to arrival Home Medications Home Medications Medication Instructions Recorded Confirmed Type acetaminophen [Tylenol Extra 1,000 mg PO BID 03/07/19 03/07/19 History Strength] allopurinol 50 mg PO DAILY 03/07/19 03/07/19 History ascorbic acid (vitamin C) [Vitamin 250 mg PO DAILY 03/07/19 03/07/19 History C] aspirin 81 mg PO DAILY 03/07/19 03/07/19 History calcium carbonate-vitamin D3 1 tab PO DAILY 03/07/19 03/07/19 History [Oyster Shell Calcium-Vit D3] docusate sodium 100 mg PO BID 03/07/19 03/07/19 History donepezil 10 mg PO HS 03/07/19 03/07/19 History fluticasone propion-salmeterol 1 inh INHALATION Q12 03/07/19 03/07/19 History [Advair Diskus] furosemide 40 mg PO BID 03/07/19 03/07/19 History levothyroxine 50 mcg PO DAILY 03/07/19 03/07/19 History lidocaine 1 patch TOPICAL DAILY 03/07/19 03/07/19 History melatonin 3 mg PO HS 03/07/19 03/07/19 History metoprolol tartrate 25 mg PO BID 03/07/19 03/07/19 History mirtazapine 15 mg PO DAILY 03/07/19 03/07/19 History nitroglycerin 0.4 mg SUBLINGUAL UD PRN 03/07/19 03/07/19 History omeprazole 20 mg PO BID 03/07/19 03/07/19 History ondansetron HCl 4 mg PO Q8 PRN 03/07/19 03/07/19 History spironolactone 12.5 mg PO DAILY 03/07/19 03/07/19 History tramadol 50 mg PO Q6 PRN 03/07/19 03/07/19 History warfarin [Coumadin] 3 mg PO HS 03/07/19 03/07/19 History Allergies Allergy/AdvReac Type Severity Reaction Status Date / Time morphine Allergy Intermediate . Unverified 03/07/19 04:26 oxycodone AdvReac Intermediate ALTERED Verified 03/07/19 04:26 MENTAL STATUS, N/V alcohol AdvReac Mild PASSES OUT Verified 03/07/19 04:26 WITH A SIP codeine AdvReac Mild N/V - Verified 03/07/19 04:26 RECEIVED MORPHINE ON PRIOR ADMIT W/O RXN Past Med/Surg History Social History Preferred Language: Georgian Feels Safe at Home: Yes Smoking Status: Unknown if ever smoked Review of Systems A total of 10 systems reviewed and were otherwise negative Physical Exam Vital Signs Vital Signs - 24 hr 03/07/19 03:41 03/07/19 03:56 03/07/19 04:03 Temperature 38.7 C H Temperature Source Oral Pulse Rate 71 75 Pulse Rate [Right Finger] Pulse Rhythm Regular Pulse Rhythm [Right Finger] Pulse Strength Normal Pulse Strength [Right Finger] Respiratory Rate 36 H 24 Respiratory Effort / Characteristics Spontaneous Labored Respiratory Depth Shallow Deep Respiratory Pattern Tachypnea Blood Pressure [Right Arm] Blood Pressure Mean [Right Arm] Blood Pressure Position Sitting Blood Pressure Position [Right Arm] Pulse Oximetry 94 97 98 Oxygen Delivery Method Nasal Cannula BiPAP Oxygen Flow Rate 4 Fraction of Inspired Oxygen 40 SaO2/FiO2 Ratio Sepsis Recent Fever Within 48 Hours Yes Sepsis New/Unexplained Change in Mental Status Yes Sepsis Action Taken by Nursing Physician Notified Pulse Oximetry Post Tiitration 97 03/07/19 04:06 03/07/19 04:24 03/07/19 05:05 Temperature 38 C H Temperature Source Oral Pulse Rate Pulse Rate [Right Finger] 75 70 72 Pulse Rhythm Pulse Rhythm [Right Finger] Regular Regular Pulse Strength Pulse Strength [Right Finger] Normal Normal Respiratory Rate 24 30 H 28 H Respiratory Effort / Characteristics Labored Spontaneous Spontaneous Respiratory Depth Deep Deep Respiratory Pattern Regular Tachypnea Blood Pressure [Right Arm] 104/60 100/54 L Blood Pressure Mean [Right Arm] 74 69 Blood Pressure Position Blood Pressure Position [Right Arm] Sitting Pulse Oximetry 98 97 97 Oxygen Delivery Method BiPAP BiPAP BiPAP Oxygen Flow Rate Fraction of Inspired Oxygen 40 40 SaO2/FiO2 Ratio 242 Sepsis Recent Fever Within 48 Hours Sepsis New/Unexplained Change in Mental Status Sepsis Action Taken by Nursing Pulse Oximetry Post Tiitration GENERAL: Patient is a ill-appearing female in moderate distress HEAD: Normocephalic atraumatic EYES: Ocular movements intact pupils equal and react to light OROPHARYNX mucous membranes are moist no exudates present no erythema or edema present NECK: Supple no nuchal rigidity CHEST: Good equal expansion LUNGS: Clear and equal to auscultation, rales at bases CARDIAC: Normal S1 and S2 ABDOMEN: Soft nontender no guarding BACK: No CVA tenderness EXTREMITIES: No pain upon palpation normal muscle strength in all groups no clubbing cyanosis or edema NEURO: Patient is following commands is answering questions appropriately. Alert and oriented x3 Cranial Nerves 2-12 grossly intact Course Administered Medications Levofloxacin/Dextrose (Levaquin/D5w) 750 mg in 150 mls @ 100 mls/hr IV NOW STA Stop: 03/07/19 05:45 Last Admin: 03/07/19 04:31 Dose: 100 mls/hr Documented by: [id number] Sodium Chloride (Nss 1000ml) 1,000 mls @ 999 mls/hr IV .Q1H1M ONE Stop: 03/07/19 05:31 Last Infusion: 03/07/19 04:53 Dose: 0 mls/hr Documented by: [id number] Admin: 03/07/19 04:35 Dose: 999 mls/hr Documented by: [id number] Discontinued Medications Furosemide (Lasix) 40 mg IV NOW STA Stop: 03/07/19 04:53 Last Admin: 03/07/19 04:55 Dose: 40 mg Documented by: [id number] Magnesium Sulfate/Dextrose (Magnesium Sulfate / D5w) 1 gm in 100 mls @ 100 mls/hr IV ONE ONE Stop: 03/07/19 04:41 Last Admin: 03/07/19 04:26 Dose: 100 mls/hr Documented by: [id number] Acetaminophen (Ofirmev) 1,000 mg in 100 mls @ 400 mls/hr IV NOW STA Stop: 03/07/19 03:57 Last Infusion: 03/07/19 04:50 Dose: 0 mls/hr Documented by: [id number] Admin: 03/07/19 04:26 Dose: 400 mls/hr Documented by: [id number] Piperacillin Sod/Tazobactam Sod (Zosyn) 4.5 gm in 120 mls @ 240 mls/hr IV NOW ONE Stop: 03/07/19 04:45 Last Infusion: 03/07/19 05:02 Dose: 0 mls/hr Documented by: [id number] Admin: 03/07/19 04:31 Dose: 240 mls/hr Documented by: [id number] Levalbuterol HCl (Xopenex 1.25mg/3ml Neb) 1.25 mg NEB NOW STA Stop: 03/07/19 03:42 Last Admin: 03/07/19 04:00 Dose: 1.25 mg Documented by: [id number] Levalbuterol HCl (Xopenex 1.25mg/3ml Neb) 1.25 mg NEB NOW STA Stop: 03/07/19 03:43 Last Admin: 03/07/19 03:59 Dose: 1.25 mg Documented by: [id number] Admin: 03/07/19 03:59 Dose: 1.25 mg Documented by: [id number] Levalbuterol HCl (Xopenex 1.25mg/3ml Neb) 1.25 mg NEB NOW STA Stop: 03/07/19 03:43 Last Admin: 03/07/19 03:59 Dose: 1.25 mg Documented by: [id number] Levalbuterol HCl (Xopenex 1.25mg/3ml Neb) 1.25 mg NEB NOW STA Stop: 03/07/19 03:44 Last Admin: 03/07/19 04:00 Dose: 1.25 mg Documented by: [id number] Methylprednisolone (Solumedrol) 125 mg IV NOW STA Stop: 03/07/19 04:32 Last Admin: 03/07/19 04:35 Dose: 125 mg Documented by: [id number] Critical Care Time I have personally spent greater than 30 minutes of critical care time in the direct management of this patient. This includes bedside care, interpretation of diagnostic studies, and testing, discussion with consultants, patient, and family members, and other required patient management activities. This 30 minutes is in excess of all separately billable procedures. Medical Decision Making Differential Diagnosis My differential diagnosis includes but is not limited to congestive heart failure exacerbation, COPD exacerbation, pneumonia, cellulitis, myocardial infarction Medical Records Attestation: I reviewed the patient's medical records. Home Medications Current Medication List: was personally reviewed by me Laboratory Data Attestation: I reviewed the patient's lab results. Result diagrams: 03/07/19 04:13 03/07/19 04:13 Lab Results 03/07/19 03/07/19 03/07/19 Range/Units 03:50 04:13 04:13 WBC 10.65 (4.8-10.8) K/uL RBC 3.91 L (4.2-5.4) M/uL Hgb 10.6 L (12.0-16.0) g/dL Hct 34.3 L (37-47) % MCV 87.7 (80-100) fL MCH 27.1 (25-34) pg MCHC 30.9 L (32-36) g/dL RDW Std Deviation 52.0 H (36.4-46.3) fL RDW Coeff of Rashad 16.4 H (11.5-14.5) % Plt Count 154 (130-400) K/uL MPV 10.3 (7.4-10.4) fL Immature Gran % (Auto) 0.4 % Neut % (Auto) 93.6 % Lymph % (Auto) 1.7 % [place] % (Auto) 4.2 % Eos % (Auto) 0.0 % Baso % (Auto) 0.1 % Immature Gran # (Auto) 0.04 H (0.00-0.02) K/uL Neut # (Auto) 9.97 H (1.4-6.5) K/uL Lymph # (Auto) 0.18 L (1.2-3.4) K/uL [place] # (Auto) 0.45 (0.11-0.59) K/uL Eos # (Auto) 0.00 (0-0.5) K/uL Baso # (Auto) 0.01 (0-0.2) K/uL PT 12.7 H (9.0-12.0) Seconds INR 1.3 H (0.9-1.1) APTT 25.1 (21.0-31.0) Seconds PTT Ratio 0.9 Sodium (136-145) mmol/L Potassium (3.5-5.1) mmol/L Chloride (98-107) mmol/L Carbon Dioxide (21-32) mmol/L Anion Gap (3-11) BUN (7-18) mg/dl Creatinine (0.6-1.2) mg/dl Est Cr Clr Drug Dosing Est GFR ( Amer) Est GFR (Non-Af Amer) BUN/Creatinine Ratio (10-20) Glucose (70-99) mg/dl Lactate (0.4-2.0) mmol/L Calcium (8.5-10.1) mg/dl Total Bilirubin (0.2-1) mg/dl AST (15-37) U/L ALT (12-78) U/L Alkaline Phosphatase (45-117) U/L Total Creatine Kinase (26-192) U/L CK-MB (CK-2) (0.5-3.6) ng/ml CK/CKMB % Calc Troponin I (0-0.045) ng/ml NT-Pro-B Natriuret Pep (0-1800) pg/ml Total Protein (6.4-8.2) gm/dl Albumin (3.4-5.0) gm/dl Globulin (2.5-4.0) gm/dl Albumin/Globulin Ratio (0.9-2) Specimen Hemolysis Urine Color Yellow Urine Appearance Cloudy A (Clear) Urine pH 5.5 (4.5-7.5) Ur Specific [place]re[place] 1.013 (1.000-1.030) Urine Protein Trace H (Negative) Urine Glucose (UA) Negative (Negative) Urine Ketones Negative (Negative) Urine Blood 2+ H (Negative) Urine Nitrite Negative (Negative) Urine Bilirubin Negative (Negative) Urine Urobilinogen Negative (Negative) Ur Leukocyte Esterase 3+ H (Negative) Urine WBC (Auto) >30 H (0-5) /hpf Urine RBC (Auto) 10-30 H (0-4) /hpf U Hyaline Cast (Auto) 10-30 H (0-5) /lpf U Epithel Cells (Auto) 0-5 (0-5) /lpf Urine Bacteria (Auto) 3+ H (Negative) Influenza Type A (PCR) (Neg) Influenza Type B (PCR) (Neg) 03/07/19 03/07/19 03/07/19 Range/Units 04:13 04:13 04:22 WBC (4.8-10.8) K/uL RBC (4.2-5.4) M/uL Hgb (12.0-16.0) g/dL Hct (37-47) % MCV (80-100) fL MCH (25-34) pg MCHC (32-36) g/dL RDW Std Deviation (36.4-46.3) fL RDW Coeff of Rashad (11.5-14.5) % Plt Count (130-400) K/uL MPV (7.4-10.4) fL Immature Gran % (Auto) % Neut % (Auto) % Lymph % (Auto) % [place] % (Auto) % Eos % (Auto) % Baso % (Auto) % Immature Gran # (Auto) (0.00-0.02) K/uL Neut # (Auto) (1.4-6.5) K/uL Lymph # (Auto) (1.2-3.4) K/uL [place] # (Auto) (0.11-0.59) K/uL Eos # (Auto) (0-0.5) K/uL Baso # (Auto) (0-0.2) K/uL PT (9.0-12.0) Seconds INR (0.9-1.1) APTT (21.0-31.0) Seconds PTT Ratio Sodium 137 (136-145) mmol/L Potassium 4.3 (3.5-5.1) mmol/L Chloride 102 (98-107) mmol/L Carbon Dioxide 26 (21-32) mmol/L Anion Gap 9.0 (3-11) BUN 42 H (7-18) mg/dl Creatinine 1.54 H (0.6-1.2) mg/dl Est Cr Clr Drug Dosing Not Reportable Est GFR ( Amer) 35.1 Est GFR (Non-Af Amer) 30.2 BUN/Creatinine Ratio 27.5 H (10-20) Glucose 109 H (70-99) mg/dl Lactate 1.4 (0.4-2.0) mmol/L Calcium 8.6 (8.5-10.1) mg/dl Total Bilirubin 1.4 H (0.2-1) mg/dl AST 46 H (15-37) U/L ALT 33 (12-78) U/L Alkaline Phosphatase 168 H (45-117) U/L Total Creatine Kinase 70 (26-192) U/L CK-MB (CK-2) < 1.0 (0.5-3.6) ng/ml CK/CKMB % Calc TNP Troponin I < 0.015 (0-0.045) ng/ml NT-Pro-B Natriuret Pep 7018 H (0-1800) pg/ml Total Protein 6.4 (6.4-8.2) gm/dl Albumin 2.9 L (3.4-5.0) gm/dl Globulin 3.5 (2.5-4.0) gm/dl Albumin/Globulin Ratio 0.8 L (0.9-2) Specimen Hemolysis Urine Color Urine Appearance (Clear) Urine pH (4.5-7.5) Ur Specific [place]re[place] (1.000-1.030) Urine Protein (Negative) Urine Glucose (UA) (Negative) Urine Ketones (Negative) Urine Blood (Negative) Urine Nitrite (Negative) Urine Bilirubin (Negative) Urine Urobilinogen (Negative) Ur Leukocyte Esterase (Negative) Urine WBC (Auto) (0-5) /hpf Urine RBC (Auto) (0-4) /hpf U Hyaline Cast (Auto) (0-5) /lpf U Epithel Cells (Auto) (0-5) /lpf Urine Bacteria (Auto) (Negative) Influenza Type A (PCR) Neg for Influ A (Neg) Influenza Type B (PCR) Neg for Influ B (Neg) Imaging Data Attestation: I personally reviewed and interpreted this imaging study as follows: My Impression: A 1 view of the chest was interpreted by me shows chronic changes as well as a pacemaker and what appears to be mild pulmonary edema ECG Data Attestation: I personally reviewed and interpreted this ECG as follows: Indication: + SOB/dyspnea Rate (beats per minute): 77 Rhythm: + other (Ventricular paced rhythm) ECG ST segments: no ST depression and no ST elevation Blood Pressure Blood Pressure Findings: Low blood pressure MDM Narrative This is an 84-year-old female that presents emergency department febrile in acute distress. The patient was immediately placed on BiPAP and given an hour- long breathing treatment. A Isaacs catheter was placed. Patient's chest x-ray is concerning for pulmonary edema therefore she was given Lasix. She was started on broad-spectrum antibiotics including Zosyn and Levaquin. Her hemoglobin was found to be 10.6 and her white blood cell count is also 10.6. BUN was 42 creatinine 1.5. I did discuss the case with the hospitalist service who did agree to admit the patient. Patient was in agreement with the treatment plan. Impression & Plan Fever, Pulmonary edema, Cellulitis, Hypoxia Discharge Plan Visit Data Chief Complaint: Shortness of Breath/Dyspnea Stated Complaint: SHORT OF BREATH/ALTERED MENTAL STATUS Other Complaint: Altered Mental Status ED Provider: Alvino Ng Discharge Problem: Fever, Pulmonary edema, Cellulitis, Hypoxia Forms Stand Alone Forms: My [facility] Prescriptions Prescriptions: No Action fluticasone propion-salmeterol [Advair Diskus] 250-50 mcg/dose blister with device 1 inh INHALATION Q12 RF: 0 donepezil 10 mg tablet 10 mg PO HS RF: 0 allopurinol 100 mg tablet 50 mg PO DAILY RF: 0 aspirin 81 mg Tablet,Delayed Release (Dr/Ec) 81 mg PO DAILY RF: 0 furosemide 40 mg tablet 40 mg PO BID RF: 0 lidocaine 4 % Adhesive Patch,Medicated 1 patch TOPICAL DAILY RF: 0 warfarin [Coumadin] 3 mg Tablet 3 mg PO HS RF: 0 levothyroxine 50 mcg tablet 50 mcg PO DAILY RF: 0 docusate sodium 100 mg Capsule 100 mg PO BID RF: 0 melatonin 3 mg Tablet 3 mg PO HS RF: 0 nitroglycerin 0.4 mg tablet, sublingual 0.4 mg sublingual UD PRN (Reason: Chest Pain) RF: 0 metoprolol tartrate 25 mg tablet 25 mg PO BID RF: 0 spironolactone 25 mg tablet 12.5 mg PO DAILY RF: 0 omeprazole 20 mg capsule,delayed release(DR/EC) 20 mg PO BID RF: 0 mirtazapine 15 mg tablet 15 mg PO DAILY RF: 0 calcium carbonate-vitamin D3 [Oyster Shell Calcium-Vit D3] 500 mg(1,250mg) - 200 unit Tablet 1 tab PO DAILY RF: 0 ondansetron HCl 4 mg tablet 4 mg PO Q8 PRN (Reason: Nausea And Vomiting) RF: 0 tramadol 50 mg tablet 50 mg PO Q6 PRN (Reason: Pain) RF: 0 acetaminophen [Tylenol Extra Strength] 500 mg Tablet 1,000 mg PO BID RF: 0 ascorbic acid (vitamin C) [Vitamin C] 250 mg Tablet 250 mg PO DAILY RF: 0 Referrals Referrals: Car Zimmerman [Primary Care Provider] - Discharge Problem: Fever Qualifiers: Fever type: unspecified Qualified Code(s): R50.9 - Fever, unspecified Pulmonary edema Qualifiers: Chronicity: acute Qualified Code(s): J81.0 - Acute pulmonary edema Cellulitis Qualifiers: Site of cellulitis: extremity Site of cellulitis of extremity: lower extremity Laterality: right Qualified Code(s): L03.115 - Cellulitis of right lower limb
--- NOTE | 2019-03-07 05:59 | History & Physical Report ---
Date of Service March 07, 2019 Assessment & Plan (1) Acute respiratory failure with hypoxia: Combination of acute CHF, pneumonia and COPD exacerbation- Continue BiPAP at current settings until able to change to nasal cannula oxygen. Duonebs every 4 hours while awake and every 2 hours when necessary. Methylprednisolone 60 mg IV every 8 hours. Received 125 mg IV in the ED. Vancomycin IV, Zosyn IV and levofloxacin IV begun in ED, and will be continued Present on Admission?: Yes (2) Chronic a-fib: Chronic A. fib/hypertension/acute CHF- Continue Lasix 40 mg p.o. twice daily to albumin/furosemide 25/40 IV twice daily. Hold spironolactone, and warfarin until able to take p.o. Hold metoprolol 20 mg p.o. twice daily due to relative hypotension May place patient on therapeutic heparin IV in the interim Present on Admission?: Yes (3) HTN (hypertension): See above Present on Admission?: Yes (4) UTI (urinary tract infection): Follow urine culture and sensitivity. Will be covered with the above antibiotics: Vanco, Zosyn and levofloxacin. Present on Admission?: Yes (5) Cellulitis of both lower extremities: Will be covered with above antibiotics: Vancomycin IV, Zosyn IV and levofloxacin IV. Present on Admission?: Yes (6) CKD (chronic kidney disease) stage 3, GFR 30-59 ml/min: Creatinine upon admission was 1.54, with range 1.26-1.86 Present on Admission?: Yes (7) Hypothyroidism: Hold oral levothyroxine 50 mcg p.o. daily until able to take p.o. Present on Admission?: Yes (8) GERD (gastroesophageal reflux disease): Hold omeprazole 20 mg p.o. twice daily. Placed on famotidine 20 mg IV every 12 hours. Until patient is able to take regular medications. Present on Admission?: Yes History of Present Illness Chief Complaint: The patient was referred to the ED from [facility] due to altered mental status and worsening shortness of breath. Primary Care Provider: [facility] The patient is an 84-year-old female resident of [facility] with a past medical history including moderate COPD, CKD stage III, hypothyroidism, GERD, chronic A. fib, hypertension, dyslipidemia, diastolic CHF, tachybradycardia syndrome status post pacer and dementia. She was referred to the emergency department after being noted to have a fever, shortness of breath and altered mental status worsening over the previous 2 hours. Staff at the [facility] noted that she was hypoxic and confused and had become extremely short of breath, patient was brought by EMS to the emergency department. In the ED, patient was found to be severely hypoxic and altered, which improved significantly with the placement of BiPAP and improvement in oxygenation. She had also been given Lasix 40 mg IV, levofloxacin 750 mg IV, methylprednisolone 125 mg IV, Zosyn 4.5 g IV and several DuoNeb treatments. Allergies Allergy/AdvReac Type Severity Reaction Status Date / Time morphine Allergy Intermediate . Unverified 03/07/19 04:26 oxycodone AdvReac Intermediate ALTERED Verified 03/07/19 04:26 MENTAL STATUS, N/V alcohol AdvReac Mild PASSES OUT Verified 03/07/19 04:26 WITH A SIP codeine AdvReac Mild N/V - Verified 03/07/19 04:26 RECEIVED MORPHINE ON PRIOR ADMIT W/O RXN Home Medications Home Medications Medication Instructions Recorded Confirmed Type acetaminophen [Tylenol Extra 1,000 mg PO BID 03/07/19 03/07/19 History Strength] allopurinol 50 mg PO DAILY 03/07/19 03/07/19 History ascorbic acid (vitamin C) [Vitamin 250 mg PO DAILY 03/07/19 03/07/19 History C] aspirin 81 mg PO DAILY 03/07/19 03/07/19 History calcium carbonate-vitamin D3 1 tab PO DAILY 03/07/19 03/07/19 History [Oyster Shell Calcium-Vit D3] docusate sodium 100 mg PO BID 03/07/19 03/07/19 History donepezil 10 mg PO HS 03/07/19 03/07/19 History fluticasone propion-salmeterol 1 inh INHALATION Q12 03/07/19 03/07/19 History [Advair Diskus] furosemide 40 mg PO BID 03/07/19 03/07/19 History levothyroxine 50 mcg PO DAILY 03/07/19 03/07/19 History lidocaine 1 patch TOPICAL DAILY 03/07/19 03/07/19 History melatonin 3 mg PO HS 03/07/19 03/07/19 History metoprolol tartrate 25 mg PO BID 03/07/19 03/07/19 History mirtazapine 15 mg PO DAILY 03/07/19 03/07/19 History nitroglycerin 0.4 mg SUBLINGUAL UD PRN 03/07/19 03/07/19 History omeprazole 20 mg PO BID 03/07/19 03/07/19 History ondansetron HCl 4 mg PO Q8 PRN 03/07/19 03/07/19 History spironolactone 12.5 mg PO DAILY 03/07/19 03/07/19 History tramadol 50 mg PO Q6 PRN 03/07/19 03/07/19 History warfarin [Coumadin] 3 mg PO HS 03/07/19 03/07/19 History Past Med/Surg History Social History Preferred Language: Portuguese Feels Safe at Home: Yes Smoking Status: Unknown if ever smoked Review of Systems Review of Systems: Unobtainable due to reduced consciousness Physical Exam Physical Exam: The patient is on BiPAP, arousable, shakes her head and mouths the word "yes" that she is feeling better with the BiPAP mask on. Sitting upright in bed and in moderate respiratory distress. HEENT--PERRL, EOMI, mucous membranes and oropharynx dry. Neck--+JVD. No bruits. Thyroid normal, trachea midline, no adenopathy. Heart--normal S1 and S2. No murmurs, rubs or gallops. Lungs-- Coarse breath sounds bilaterally with crackles at the bases Abdomen--normal bowel sounds and soft. Nontender. Nondistended. Extremities--no cyanosis or clubbing. No edema. There are good distal pulses b/l. Dermatologic--mild erythema bilaterally anterior tibial surfaces. Right anterior tibial surface with bandage covering surface abrasion due to wheelchair. Neurologic--cranial nerves II through XII grossly intact. Rheumatologic--limited exam due to clinical state Psychiatric--normal affect. Results & Data Vital Signs (Past 12 Hours) Vital Signs Temp Pulse Pulse Resp BP Pulse Ox 03/07/19 05:05 100.4 F H 72 28 H 100/54 L 97 03/07/19 04:24 70 30 H 104/60 97 03/07/19 04:06 75 24 98 03/07/19 04:03 75 24 98 03/07/19 03:56 97 03/07/19 03:41 101.7 F H 71 36 H 94 Laboratory Results Laboratory Results WBC 10.65 K/uL (4.8-10.8) 03/07/19 04:13 RBC 3.91 M/uL (4.2-5.4) L 03/07/19 04:13 Hgb 10.6 g/dL (12.0-16.0) L 03/07/19 04:13 Hct 34.3 % (37-47) L 03/07/19 04:13 MCV 87.7 fL (80-100) 03/07/19 04:13 MCH 27.1 pg (25-34) 03/07/19 04:13 MCHC 30.9 g/dL (32-36) L 03/07/19 04:13 RDW Std Deviation 52.0 fL (36.4-46.3) H 03/07/19 04:13 RDW Coeff of Rashad 16.4 % (11.5-14.5) H 03/07/19 04:13 Plt Count 154 K/uL (130-400) 03/07/19 04:13 MPV 10.3 fL (7.4-10.4) 03/07/19 04:13 Immature Gran % (Auto) 0.4 % 03/07/19 04:13 Neut % (Auto) 93.6 % 03/07/19 04:13 Lymph % (Auto) 1.7 % 03/07/19 04:13 [place] % (Auto) 4.2 % 03/07/19 04:13 Eos % (Auto) 0.0 % 03/07/19 04:13 Baso % (Auto) 0.1 % 03/07/19 04:13 Immature Gran # (Auto) 0.04 K/uL (0.00-0.02) H 03/07/19 04:13 Neut # (Auto) 9.97 K/uL (1.4-6.5) H 03/07/19 04:13 Lymph # (Auto) 0.18 K/uL (1.2-3.4) L 03/07/19 04:13 [place] # (Auto) 0.45 K/uL (0.11-0.59) 03/07/19 04:13 Eos # (Auto) 0.00 K/uL (0-0.5) 03/07/19 04:13 Baso # (Auto) 0.01 K/uL (0-0.2) 03/07/19 04:13 PT 12.7 Seconds (9.0-12.0) H 03/07/19 04:13 INR 1.3 (0.9-1.1) H 03/07/19 04:13 APTT 25.1 Seconds (21.0-31.0) 03/07/19 04:13 PTT Ratio 0.9 03/07/19 04:13 Sodium 137 mmol/L (136-145) 03/07/19 04:13 Potassium 4.3 mmol/L (3.5-5.1) 03/07/19 04:13 Chloride 102 mmol/L (98-107) 03/07/19 04:13 Carbon Dioxide 26 mmol/L (21-32) 03/07/19 04:13 Anion Gap 9.0 (3-11) 03/07/19 04:13 BUN 42 mg/dl (7-18) H 03/07/19 04:13 Creatinine 1.54 mg/dl (0.6-1.2) H 03/07/19 04:13 Est Cr Clr Drug Dosing Not Reportable 03/07/19 04:13 Est GFR ( Amer) 35.1 03/07/19 04:13 Est GFR (Non-Af Amer) 30.2 03/07/19 04:13 BUN/Creatinine Ratio 27.5 (10-20) H 03/07/19 04:13 Glucose 109 mg/dl (70-99) H 03/07/19 04:13 Lactate 1.4 mmol/L (0.4-2.0) 03/07/19 04:13 Calcium 8.6 mg/dl (8.5-10.1) 03/07/19 04:13 Total Bilirubin 1.4 mg/dl (0.2-1) H 03/07/19 04:13 AST 46 U/L (15-37) H 03/07/19 04:13 ALT 33 U/L (12-78) 03/07/19 04:13 Alkaline Phosphatase 168 U/L (45-117) H 03/07/19 04:13 Total Creatine Kinase 70 U/L (26-192) 03/07/19 04:13 CK-MB (CK-2) < 1.0 ng/ml (0.5-3.6) 03/07/19 04:13 CK/CKMB % Calc TNP 03/07/19 04:13 Troponin I < 0.015 ng/ml (0-0.045) 03/07/19 04:13 NT-Pro-B Natriuret Pep 7018 pg/ml (0-1800) H 03/07/19 04:13 Total Protein 6.4 gm/dl (6.4-8.2) 03/07/19 04:13 Albumin 2.9 gm/dl (3.4-5.0) L 03/07/19 04:13 Globulin 3.5 gm/dl (2.5-4.0) 03/07/19 04:13 Albumin/Globulin Ratio 0.8 (0.9-2) L 03/07/19 04:13 Specimen Hemolysis 03/07/19 04:13 Urine Color Yellow 03/07/19 03:50 Urine Appearance Cloudy (Clear) A 03/07/19 03:50 Urine pH 5.5 (4.5-7.5) 03/07/19 03:50 Ur Specific [place] 1.013 (1.000-1.030) 03/07/19 03:50 Urine Protein Trace (Negative) H 03/07/19 03:50 Urine Glucose (UA) Negative (Negative) 03/07/19 03:50 Urine Ketones Negative (Negative) 03/07/19 03:50 Urine Blood 2+ (Negative) H 03/07/19 03:50 Urine Nitrite Negative (Negative) 03/07/19 03:50 Urine Bilirubin Negative (Negative) 03/07/19 03:50 Urine Urobilinogen Negative (Negative) 03/07/19 03:50 Ur Leukocyte Esterase 3+ (Negative) H 03/07/19 03:50 Urine WBC (Auto) >30 /hpf (0-5) H 03/07/19 03:50 Urine RBC (Auto) 10-30 /hpf (0-4) H 03/07/19 03:50 U Hyaline Cast (Auto) 10-30 /lpf (0-5) H 03/07/19 03:50 U Epithel Cells (Auto) 0-5 /lpf (0-5) 03/07/19 03:50 Urine Bacteria (Auto) 3+ (Negative) H 03/07/19 03:50 Influenza Type A (PCR) Neg for Influ A (Neg) 03/07/19 04:22 Influenza Type B (PCR) Neg for Influ B (Neg) 03/07/19 04:22 Code Status & VTE Plan Code Status DNR/DNI VTE Prophylaxis Plan VTE Prophylaxis will be ordered: Yes PG Care Time/CCT Total # of Minutes Spent Total Time Spent with Patient: Total time spent is greater than 50% in coordination of care (as documented) at patient's floor/unit and/or counseling patient:
[2019-03-07] MEDS ORDERED: NITROGLYCERIN SL 0.4 MG/TAB TAB SL PRN (06:20)
[2019-03-07] MEDS ORDERED: PIPERACILLIN/TAZOBACTAM 4.5 GM/120 ML BAG IV SCH (06:20)
[2019-03-07] MEDS ORDERED: VANCOMYCIN CONSULT ACTIVE PRN (06:20)
[2019-03-07] MEDS ORDERED: ONDANSETRON INJ 2 MG/ML 2 ML VIAL IV PRN (06:20)
[2019-03-07] MEDS ORDERED: PATIENT'S HEIGHT AND/OR WEIGHT NEEDED SCH (06:45)
[2019-03-07] MEDS: FAMOTIDINE 20 MG in SYRINGE 3 ML IV SCH ×2 (06:46→17:58)
--- NOTE | 2019-03-07 07:04 | XRay Report ---
SINGLE VIEW CHEST CLINICAL HISTORY: Sepsis. FINDINGS: An AP, portable, upright chest radiograph is compared to study dated 11/25/2017 and correlat ed with chest CT dated 08/25/2018. The examination is degraded by portable technique and patient rotat ion. A 2-lead cardiac pacemaker is unchanged in position. The heart is enlarged noting atheroscleroti c calcification of the thoracic aorta. The pulmonary vasculature is noncongested. Emphysema and chron ic interstitial thickening are similar to previous. No airspace consolidation or large pleural effusi on is identified. Scarring/atelectasis is noted at the lung bases. No pneumothorax is seen. The skele lance structures are osteopenic. The bony thorax is grossly intact. Degenerative change is noted in the thoracic spine. IMPRESSION: 1. Emphysema. 2. Cardiomegaly and cardiac pacemaker. There is no radiographic evidence of congestive failure. 3. No airspace consolidation or large pleural effusion is identified. Electronically signed by: Lenin Cantu M.D. 03/07/2019 7:02 AM
[2019-03-07] MEDS: ALBUT/IPRATROP 3MG/0.5MG NEB 3 ML VIAL NEB SCH ×4 (07:06→19:01)
[2019-03-07] MEDS: ALBUMIN 25% 50 ML with FUROSEMIDE 40 MG IV SCH ×3 (07:12→22:33)
[2019-03-07] MEDS ORDERED: VANCOMYCIN HCL 1,500 MG in SODIUM CHLORIDE 0.9% 500 ML IV ONE (07:15)
[2019-03-07] MEDS ORDERED: PNEUMOCOCCAL ADMINISTRATION CHARGE ONE (08:15)
[2019-03-07] MEDS ORDERED: INFLUENZA VACCINE HIGH DOSE 65+ 0.5 ML SYR IM ONE (08:15)
[2019-03-07] MEDS ORDERED: INFLUENZA ADMINISTRATION CHARGE ONE (08:15)
[2019-03-07] MEDS ORDERED: PNEUMOCOCCAL POLYSACCHARIDES 25 MCG/0.5 ML VIAL/SYR IM ONE (08:15)
[2019-03-07] MEDS: METOPROLOL TARTRATE 25 MG TAB PO SCH ×2 (08:25→20:51)
[2019-03-07] MEDS ORDERED: VANCOMYCIN HCL 1,000 MG in SODIUM CHLORIDE 0.9% 250 ML IV SCH (09:00)
[2019-03-07] MEDS: LIDOCAINE 5% 1 PATCH TD SCH (09:24)
[2019-03-07] MEDS ORDERED: PIPERACILLIN/TAZOBACTAM 3.375 GM in DEXTROSE 5% 100 ML IV SCH (10:00)
[2019-03-07] MEDS: methylPREDNISolone 60 MG in SYRINGE 0 ML IV SCH ×2 (11:25→20:50)
--- NOTE | 2019-03-07 14:36 | History & Physical Bridge Note ---
Date of Service March 07, 2019 History & Physical Bridge Note Patient seen and examined this morning. Overall, she is able to follow commands, but not open eyes or give any responses. Presently saturating well on BiPap. Will continue to look for infectious causes of her respiratory decline and continue treatment with abx and steroids.
--- NOTE | 2019-03-07 14:47 | Pharmacy Report ---
Pharmacy Abx Dose Short Note - Date of Service March 07, 2019 - Assessment & Plan Assessment 84 [facility] old F shelter resident with PMH including COPD, CKD stage III, hypothyroidism, GERD, Afib, HTN, dyslipidemia, CHF, dementia. Patient presented to ER febrile, SOB with confusion. Patient was started on levofloxacin/zosyn in the ER. Normal white count. Pulmonary source, UTI, cellulitis all possible sources. Urine culture and blood cultures pending. Vancomycin was started by admitting hospitalist. Patient does have September urinary culture with ESBL E. coli. Plan Vancomycin 1500 mg (24 mg/kg) load x 1. Patient's population based kinetics predict a half life of 30 hours- SCr does appear to be close to baseline, may be slightly elevated, will have to dose based on levels for now. Elderly women can clear vancomycin faster than predicted, will check random level ~18 hours from previous dose. Further dosing dependent on level. Pharmacy will continue to follow and will adjust dose/frequency as necessary. Thank you.
[2019-03-07 15:37] LABS: Base Excess ABG 1.7 mEq/L (-9-1.8); HCO3 ABG 25 mmol/L (19-24); Oxygen Saturation ABG 99.4 % (90-95); PCO2 ABG 33 mmHg (35-46); PO2 ABG 175 mm/Hg (80-95); pH ABG 7.49 (7.35-7.45)
[2019-03-07 15:38] LABS: Allen Test POS (Pos)
[2019-03-07] MEDS: WARFARIN SOD 3 MG TAB PO SCH (20:51)
[2019-03-08] MEDS: methylPREDNISolone 60 MG in SYRINGE 0 ML IV SCH ×2 (04:42→11:24)
[2019-03-08] MEDS: LEVOTHYROXINE SODIUM 50 MCG TABLET PO SCH (04:43)
[2019-03-08] MEDS: FAMOTIDINE 20 MG in SYRINGE 3 ML IV SCH (04:43)
[2019-03-08] MEDS: ALBUT/IPRATROP 3MG/0.5MG NEB 3 ML VIAL NEB SCH ×4 (07:02→19:15)
[2019-03-08 07:03] LABS: Hematocrit (blood only) 38.2 % (37-47); Hemoglobin 11.9 g/dL (12.0-16.0); Mean Corpuscular Hemoglobin 27.5 pg (25-34); Mean Corpuscular Hgb Conc 31.2 g/dL (32-36); Mean Corpuscular Volume 88.4 fL (80-100); Mean Platelet Volume 10.4 fL (7.4-10.4); Platelet Count 172 K/uL (130-400); RDW Coefficient of Variation 16.6 % (11.5-14.5); RDW Standard Deviation 53.5 fL (36.4-46.3); Red Blood Count 4.32 M/uL (4.2-5.4); White Blood Count 11.86 K/uL (4.8-10.8)
[2019-03-08 07:44] LABS: BUN Creatinine Ratio 23.4 (10-20); Calcium 9.6 mg/dl (8.5-10.1); Creatinine Clr Calc Pharmacy 17.5 ml/min; Est GFR (African American) 28.1; Est GFR (Non-African American) 24.2; Magnesium 2.3 mg/dl (1.8-2.4); Phosphorus 3.7 mg/dl (2.5-4.9); Potassium 3.4 mmol/L (3.5-5.1)
[2019-03-08] MEDS: METOPROLOL TARTRATE 25 MG TAB PO SCH ×2 (08:27→20:01)
[2019-03-08] MEDS: LIDOCAINE 5% 1 PATCH TD SCH (08:28)
--- NOTE | 2019-03-08 12:34 | Hospitalist Progress Note ---
Date of Service March 08, 2019 Assessment & Plan (1) Acute respiratory failure with hypoxia: COPD exacerbation. No pneumonia on CXR on admission. No fevers or initial leukocytosis to indicate infection. - Continue abx (switch to PO tomorrow) - Continue steroids (switch to PO tomorrow) - Continue DuoNebs standing and PRN (2) Chronic a-fib: Chronic A. fib/hypertension/acute CHF- - Switched to Lasix PO 40mg BID home dosing - Restart home meds (3) UTI (urinary tract infection): I believe this was actually asymptomatic bacteruria. She is more alert and awake now and has no urinary symptoms. - Urine culture showing E. coli; pending sensitivities. (4) HTN (hypertension): See above (5) Cellulitis of both lower extremities: Some mild pinkness of both legs. However, I do not think it is cellulitis. It is not hot, red, or painful. Likely chronic changes. (6) CKD (chronic kidney disease) stage 3, GFR 30-59 ml/min: Creatinine upon admission was 1.54, with range 1.26-1.86. - Remains at baseline on 03/08, though at upper limit. - Monitor (7) Hypothyroidism: TSH last was 0.4 in 08/2018. - Restart oral levothyroxine - Check TSH (8) GERD (gastroesophageal reflux disease): Home PPI (9) DVT prophylaxis: On warfarin. INR is low, but will use SCDs and encourage ambulation as well. Subjective Feeling better today. She is off BiPap. Reports some shortness of breath, but otherwise doing well. Some pain in the back at times, and her ankles are a bit sore. Physical Exam Constitutional: WD/WN, vitals as above Eyes: EOM intact bilaterally; no conjunctival abnormality ENMT: external ear and nose normal, oropharynx normal Neck: trachea midline, no thyromegaly normal visual inspection Respiratory: no respiratory distress Auscultation: + wheezes (Mild) Cardiovascular: RRR, no murmur, no edema Gastrointestinal (Abdomen): Inspection/Auscultation: abdomen normal to inspection; abdomen not distended Musculoskeletal: no cyanosis or clubbing, extremities motor strength 5/5 Skin: no rashes, warm and dry Neurologic: moves all extremities and awake Psychiatric: Orientation: alert, oriented to person and cooperative Results & Data Vital Signs (Past 12 Hours) Vital Signs Temp Pulse Pulse Resp BP Pulse Ox 03/08/19 10:58 72 18 96 03/08/19 10:53 36.7 C 72 20 149/99 H 97 03/08/19 07:41 71 03/08/19 07:03 36.5 C 77 18 169/97 H 97 03/08/19 07:02 79 16 96 03/08/19 03:26 36.7 C 76 19 144/79 H 96 PG Care Time/CCT Total # of Minutes Spent Total Time Spent with Patient: Total time spent is greater than 50% in coordination of care (as documented) at patient's floor/unit and/or counseling patient:
[2019-03-08] MEDS: POTASSIUM CHLORIDE PWD 20 MEQ PACK PO SCH ×2 (13:44→20:01)
[2019-03-08] MEDS ORDERED: TRAMADOL HCL 50 MG TABLET PO PRN (14:55)
[2019-03-08] MEDS: FUROSEMIDE 40 MG TAB PO SCH (17:41)
[2019-03-08] MEDS: DOCUSATE SODIUM/SENNA 50/8.6MG TAB PO SCH (17:41)
[2019-03-08] MEDS: WARFARIN SOD 3 MG TAB PO SCH (20:01)
[2019-03-08] MEDS: FLUTICASONE/SALMETEROL 250/50 (ADVAIR) 14 PUFF/1 INHALER INH SCH (20:02)
[2019-03-08] MEDS ORDERED: DONEPEZIL HCL 10 MG TAB PO SCH (21:00)
[2019-03-09] MEDS ORDERED: LEVOFLOXACIN/D5W 750 MG/150 ML BAG IV SCH (04:00)
[2019-03-09] MEDS: LEVOTHYROXINE SODIUM 50 MCG TABLET PO SCH (05:33)
[2019-03-09 06:02] LABS: INR 1.8 (0.9-1.1); Prothrombin Time 17.9 Seconds (9.0-12.0)
[2019-03-09 06:26] LABS: BUN Creatinine Ratio 31.3 (10-20); Calcium 9.1 mg/dl (8.5-10.1); Creatinine Clr Calc Pharmacy 20.5 ml/min; Est GFR (Non-African American) 29.3; Magnesium 2.2 mg/dl (1.8-2.4); Potassium 3.5 mmol/L (3.5-5.1)
[2019-03-09 06:45] LABS: Phosphorus 2.6 mg/dl (2.5-4.9); Thyroid Stimulating Hormone 0.275 uIu/ml (0.300-4.500)
[2019-03-09] MEDS: ALBUT/IPRATROP 3MG/0.5MG NEB 3 ML VIAL NEB SCH ×2 (06:55→11:03)
[2019-03-09] MEDS ORDERED: levoFLOXacin 500 MG TAB PO SCH (07:00)
[2019-03-09 07:01] LABS: T4 Free Thyroxine 1.24 ng/dl (0.8-1.6)
[2019-03-09] MEDS: FLUTICASONE/SALMETEROL 250/50 (ADVAIR) 14 PUFF/1 INHALER INH SCH (07:49)
[2019-03-09] MEDS: POTASSIUM CHLORIDE PWD 20 MEQ PACK PO SCH (07:51)
[2019-03-09] MEDS: LIDOCAINE 5% 1 PATCH TD SCH (07:52)
[2019-03-09] MEDS: FUROSEMIDE 40 MG TAB PO SCH (07:52)
[2019-03-09] MEDS: METOPROLOL TARTRATE 25 MG TAB PO SCH (07:53)
[2019-03-09] MEDS: DOCUSATE SODIUM/SENNA 50/8.6MG TAB PO SCH (07:55)
[2019-03-09] MEDS ORDERED: ASPIRIN 81 MG ECTAB PO SCH (09:00)
[2019-03-09] MEDS ORDERED: PANTOprazole 40 MG TAB PO SCH (09:00)
[2019-03-09] MEDS ORDERED: ALLOPURINOL 100 MG TAB PO SCH (09:00)
[2019-03-09] MEDS ORDERED: MIRTAZAPINE TAB 15 MG TAB PO SCH (09:00)
[2019-03-09] MEDS ORDERED: predniSONE 20 MG TAB PO SCH (09:00)
--- NOTE | 2019-03-09 14:21 | Discharge Summary ---
Date of Service March 09, 2019 Admission HPI Per Admitting Provider The patient is an 84-year-old female resident of [facility] with a past medical history including moderate COPD, CKD stage III, hypothyroidism, GERD, chronic A. fib, hypertension, dyslipidemia, diastolic CHF, tachybradycardia syndrome status post pacer and dementia. She was referred to the emergency department after being noted to have a fever, shortness of breath and altered mental status worsening over the previous 2 hours. Staff at the [facility] noted that she was hypoxic and confused and had become extremely short of breath, patient was brought by EMS to the emergency department. In the ED, patient was found to be severely hypoxic and altered, which improved significantly with the placement of BiPAP and improvement in oxygenation. She had also been given Lasix 40 mg IV, levofloxacin 750 mg IV, methylprednisolone 125 mg IV, Zosyn 4.5 g IV and several DuoNeb treatments. Principal Diagnosis COPD exacerbation Discharge Exam Constitutional WD/WN, vitals as above Eyes EOM intact bilaterally; no conjunctival abnormality ENMT external ear and nose normal, oropharynx normal Neck trachea midline, no thyromegaly normal visual inspection Respiratory no respiratory distress Auscultation: + wheezes (Mild) Cardiovascular RRR, no murmur, no edema Gastrointestinal (Abdomen) Inspection/Auscultation: abdomen normal to inspection; abdomen not distended Musculoskeletal no cyanosis or clubbing, extremities motor strength 5/5 Skin no rashes, warm and dry Neurologic moves all extremities and awake Psychiatric Orientation: alert, oriented to person and cooperative Discharge Data Allergies Allergy/AdvReac Type Severity Reaction Status Date / Time morphine Allergy Intermediate . Unverified 03/07/19 04:26 oxycodone AdvReac Intermediate ALTERED Verified 03/07/19 04:26 MENTAL STATUS, N/V alcohol AdvReac Mild PASSES OUT Verified 03/07/19 04:26 WITH A SIP codeine AdvReac Mild N/V - Verified 03/07/19 04:26 RECEIVED MORPHINE ON PRIOR ADMIT W/O RXN Consultations 03/07/19 04:53 ED Decision to Admit Stat 03/07/19 06:20 Consult Case Management - Discharge Planning Routine Hospital Course (1) Acute respiratory failure with hypoxia: COPD exacerbation. No pneumonia on CXR on admission. No fevers or initial leukocytosis to indicate bacterial infection. - Finished abx on 03/09 as her kidney function allows it to stick around longer in her system. - Continue prednisone 40 mg PO x 3 more days - Continue DuoNebs standing for 2-3 more days (2) Chronic a-fib: Chronic A. fib/hypertension/acute CHF- - Lasix PO 40mg BID home dosing - Home meds (3) UTI (urinary tract infection): This is actually asymptomatic bacteruria. She has no urinary symptoms. - Urine culture grew ESBL E. coli. She had no urinary symptoms, no fever, no white count, no indication of UTI. NOT TREATED. (4) HTN (hypertension): See above (5) Cellulitis of both lower extremities: Some mild pinkness of both legs. However, I do not think it is cellulitis. It is not hot, red, or painful. Likely chronic changes. (6) CKD (chronic kidney disease) stage 3, GFR 30-59 ml/min: Creatinine upon admission was 1.54, with range 1.26-1.86. - Remains at baseline on 03/08, though at upper limit. - Monitor (7) Hypothyroidism: TSH was 0.275, FT4 was 1.24. - Continue home levothyroxine (8) GERD (gastroesophageal reflux disease): Home PPI (9) DVT prophylaxis: On warfarin. INR is low, but will use SCDs and encourage ambulation as well. Total Time Total Time Spent Total Time Spent (In Minutes): 35 Discharge Plan Discharge Items Patient Disposition: Transfer [facility] Reason For Visit: ACUTE RESP FAILURE WITH HYPOXIA, UTI, B/L LE CELLU Discharge Diagnosis: COPD exacerbation Activity: Resume your previous activity Non-emergency contact: Primary Care Provider Call non-emergency contact if: your symptoms worsen and your temperature is above 101 Follow-up/Referrals: Car Zimmerman [Primary Care Provider] - Diet: Regular Addtl Attending Provider Instructions: Admitted for trouble breathing. Her chest x-ray was clear. She was given 1) Antibiotics 2) Steroids IV 3) Breathing treatments every 4 hours standing On discharge, she should be on prednisone 40 mg daily for 3 more days (End date: 03/12/2019). She finished her antibiotics (due to her kidney function, they last longer), so she doesn't need any more. For 2-3 more days, she should get breathing treatments every 6 hours (four times a day), then they can be spaced out and used "as needed." She had a positive urine culture, but no symptoms, so it was not considered a UTI. In the end, it was covered by antibiotics anyhow for the COPD exacerbation. Finally, her INR on admission was 1.2 on admission. We continued her warfarin and it jumped to 1.8 by discharge. While on the prednisone, her INR should be checked carefully. Warfarin should probably be lowered to 2mg daily until she is off steroids to ensure her INR doesn't jump to >3 in a few days. Pending Studies at Discharge: No Stand-Alone Forms: My [facility] Skilled Items Patient informed of condition?: Yes DNR: Yes Discharge Level of Care: Skilled Communicable Disease: Yes (ESBL Klebsiella) Discharge Prognosis: Improving Lines: None Urinary Catheter: No Medications and DC Order Prescriptions: New ipratropium-albuterol 0.5 mg-3 mg(2.5 mg base)/3 mL Solution For Nebulization 3 ml NEB QIDR Qty: 1 RF: 0 prednisone 20 mg Tablet 40 mg PO DAILY Qty: 3 RF: 0 Continued fluticasone propion-salmeterol [Advair Diskus] 250-50 mcg/dose blister with device 1 inh INHALATION Q12 RF: 0 donepezil 10 mg tablet 10 mg PO HS RF: 0 allopurinol 100 mg tablet 50 mg PO DAILY RF: 0 aspirin 81 mg Tablet,Delayed Release (Dr/Ec) 81 mg PO DAILY RF: 0 furosemide 40 mg tablet 40 mg PO BID RF: 0 lidocaine 4 % Adhesive Patch,Medicated 1 patch TOPICAL DAILY RF: 0 levothyroxine 50 mcg tablet 50 mcg PO DAILY RF: 0 docusate sodium 100 mg Capsule 100 mg PO BID RF: 0 melatonin 3 mg Tablet 3 mg PO HS RF: 0 nitroglycerin 0.4 mg tablet, sublingual 0.4 mg sublingual UD PRN (Reason: Chest Pain) RF: 0 metoprolol tartrate 25 mg tablet 25 mg PO BID RF: 0 spironolactone 25 mg tablet 12.5 mg PO DAILY RF: 0 omeprazole 20 mg capsule,delayed release(DR/EC) 20 mg PO BID RF: 0 mirtazapine 15 mg tablet 15 mg PO DAILY RF: 0 calcium carbonate-vitamin D3 [Oyster Shell Calcium-Vit D3] 500 mg(1,250mg) - 200 unit Tablet 1 tab PO DAILY RF: 0 ondansetron HCl 4 mg tablet 4 mg PO Q8 PRN (Reason: Nausea And Vomiting) RF: 0 tramadol 50 mg tablet 50 mg PO Q6 PRN (Reason: Pain) RF: 0 acetaminophen [Tylenol Extra Strength] 500 mg Tablet 1,000 mg PO BID RF: 0 ascorbic acid (vitamin C) [Vitamin C] 250 mg Tablet 250 mg PO DAILY RF: 0 Changed warfarin [Coumadin] 3 mg Tablet 2 mg PO HS Qty: 0 RF: 0 Discharge Orders: Discharge Order (Routine); Ordered 03/09/19 Ordered By: Roge Farfan Admission Data Admit Date/Time: 03/07/19 05:36 Attending Provider: Roge Farfan Admit Provider: Jesús Powell Primary Care Provider: Car Zimmerman Other Providers: Roge Farfan ; Jesús Powell Other Interventions: Discharge Summary Assessment (RN) Last Done: 03/09/19 14:05
== END 2019-03-09 15:20 | DRG 189 ==
LOC: ED 03:37 → SUATTDRO 05:36 → 2E 05:36 → 4W 03-08 14:47

== ENCOUNTER 2019-08-03 00:57 | Inpatient (IN) ==
[2019-08-03] MEDS ORDERED: ACETAMINOPHEN 650 MG SUPP PR STA (01:19)
--- NOTE | 2019-08-03 01:30 | Emergency Department Note ---
Impression & Plan Sepsis, Bilateral cellulitis of lower leg ED Provider Note NAME: GITA DARNELL AGE: 84 SEX: F ARRIVES VIA: Ambulance INFORMANT: EMS ED PROVIDER(S): Kay Pascual DO CHIEF COMPLAINT: Respiratory distress and fever PLAN: Disposition: Admitted to the [facility] MEDICAL DECISION MAKING: This is an 84-year-old female patient from [facility] who presents to the emergency department after developing a fever and respiratory distress. The patient has a history of COPD and CHF. The patient had a septic work-up here in the emergency department. She was febrile with some obvious cellulitis to her l ower extremities and an elevated lactic acid. Initial chest x-ray findings were not remarkable but the patient did have hypoxia at [facility] and for EMS. She was stable here on BiPAP and did not require intubation as she is also a DNR. The patient will undergo COVID testing. She was felt to be septic and was started on broad-spectrum antibiotics-Zosyn, Levaquin, and vancomycin. [facility] The patient did become hypotensive and was thought to be in septic shock. She was bolused with additional IV fluids. The patient was noted to have a supratherapeutic INR. Even though the patient had no obvious chest x-ray findings, she exhibited shortness of breath and hypoxia prior to presentation to the emergency department, she was treated with Levaquin and Zosyn. As for the cellulitis in her lower extremities, she was given vancomycin. The patient had a significant elevation to her lactic acid was felt to be septic.. Triage Nursing notes reviewed and agree them. Additional history obtained from EMS Prior medical records reviewed as were records from 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 Patient was in her usual state of health today at [facility] but was noted to have a fever this evening and developed increasing respiratory distress, increasing respiratory rate and hypoxia tonight. The patient had an episode of vomiting and appeared to become more short of breath. EMS was called. They noted her to be hypoxic on her usual 2 L of O2 by nasal cannula. The patient had an increased work of breathing and responded well to CPAP ROS: See above HPI for pertinent positives & negatives. A total of 10 systems reviewed and were otherwise negative. PAST MEDICAL HISTORY:See Below PAST SURGICAL HISTORY:See Below SOCIAL HISTORY:The patient resides at [facility] HOME MEDICATIONS:See list ALLERGIES:Morphine, oxycodone, codeine, alcohol VITALS:The patient was febrile and hypertension PHYSICAL EXAMINATION: HEENT: Head - normocephalic and atraumatic Pupils are equal, round, and reactive to light. Extraocular eye muscles are intact, and sclera are anicteric. Nose - moist nasal mucosa without discharge. Mouth - moist buccal mucosa. Oropharynx is nonerythematous and there is no tonsillar exudate or edema noted. Neck: Supple; no JVD, nuchal rigidity, cervical lymphadenopathy, or auscultated bruits. Heart: Regular rate and rhythm. There is a normal S1 and S2 with no murmurs, clicks, or gallops appreciated. Lungs: Clear to auscultation bilaterally with no wheezes, rales, or rhonchi. Abdomen: Soft, completely nontender, nondistended, with good bowel sounds. There are no palpable pulsatile masses or hepatosplenomegaly. There is no guarding, rigidity, or rebound noted. Extremities: 1+ pitting edema with peripheral venous stasis changes in the legs. Patient had significant erythema to both lower extremities from the knees down to the ankles with the left being worse than the right. This look to be consistent with cellulitis of both lower extremities. Skin: Hot and dry with poor turgor; there were no obvious rashes ED COURSE: Times/Reassessments: 0100: The patient was evaluated in room a 9 which is a negative pressure room. The staff and I DONNED full PPE for COVID precautions. An order was placed for continuous cardiac monitoring. The patient was in a ventricular paced rhythm at 70. A septic protocol was performed. The patient was switched from prehospital CPAP to BiPAP. O2 saturations were 99% on the BiPAP. Labs were drawn as below. A twelve-lead EKG was obtained. The patient was given a dose of rectal Tylenol. A urine specimen was obtained. 0210: Patient's vital signs remained stable. Chest x-ray was reviewed and appears unchanged from chest x-ray from 3 days ago. Patient does have an elevated lactate and INR. She will be started on IV antibiotics. She will be bolused with normal saline solution. She was placed on a normal saline drip. 0230: The case was discussed with Dr. Iglesias. The patient will be admitted to the hospital as a PUI for COVID and should have a rapid coronavirus test performed. Procedures: IV Zosyn IV Levaquin IV vancomycin I have personally spent greater than 70 minutes of critical care time in the direct management of this patient. This includes bedside care, interpretation of diagnostic studies, and testing, discussion with consultants, patient, and family members, and other required patient management activities. This 70 minutes is in excess of all separately billable procedures. 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 Unverified 08/03/19 01:24 oxycodone AdvReac Intermediate ALTERED Verified 08/03/19 01:24 MENTAL STATUS, N/V alcohol AdvReac Mild PASSES OUT Verified 08/03/19 01:24 WITH A SIP codeine AdvReac Mild N/V - Verified 08/03/19 01:24 RECEIVED MORPHINE ON PRIOR ADMIT W/O RXN Home Meds Home Medications Medication Instructions Recorded Confirmed acetaminophen [Tylenol Extra 1,000 mg PO BID 03/07/19 08/03/19 Strength] allopurinol 50 mg PO QAM 03/07/19 08/03/19 aspirin 81 mg PO QAM 03/07/19 08/03/19 calcium carbonate-vitamin D3 1 tab PO QAM 03/07/19 08/03/19 [Oyster Shell Calcium-Vit D3] docusate sodium 100 mg PO BID 03/07/19 08/03/19 donepezil 10 mg PO HS 03/07/19 08/03/19 fluticasone propion-salmeterol 1 inh INHALATION Q12 03/07/19 08/03/19 [Advair Diskus] furosemide 40 mg PO QAM 03/07/19 08/03/19 levothyroxine 50 mcg PO QAM 03/07/19 08/03/19 lidocaine 1 patch TOPICAL QAM 03/07/19 08/03/19 metoprolol tartrate 12.5 mg PO BID 03/07/19 08/03/19 mirtazapine 15 mg PO QPM 03/07/19 08/03/19 omeprazole 20 mg PO BID 03/07/19 08/03/19 spironolactone 12.5 mg PO QAM 03/07/19 08/03/19 calcitriol 0.25 mcg PO QAM 05/29/19 08/03/19 warfarin 5 mg PO QPM 07/31/19 08/03/19 acetaminophen 650 mg PO Q12 PRN MDD 3gm 08/03/19 08/03/19 acetaminophen 650 mg PO Q12 PRN MDD 3gm 08/03/19 08/03/19 ascorbic acid (vitamin C) 250 mg PO DAILY 08/03/19 08/03/19 furosemide 30 mg PO DAILY 08/03/19 08/03/19 ipratropium-albuterol 3 ml INHALATION QID 08/03/19 08/03/19 ipratropium-albuterol 3 ml NEB .EVERY 2 HOURS PRN 08/03/19 08/03/19 melatonin 3 mg PO HS 08/03/19 08/03/19 nitroglycerin [Nitrostat] 0.4 mg SUBLINGUAL UD PRN 08/03/19 08/03/19 ondansetron HCl 4 mg PO Q8 PRN 08/03/19 08/03/19 prednisone 10 mg PO UD 08/03/19 08/03/19 Previous Rx's Medication Instructions Recorded tramadol 50 mg PO Q6 PRN #7 tab 03/09/19 Results & Data (ED) Vital Signs Vital Signs - 24 hr 08/03/19 00:48 08/03/19 01:05 08/03/19 01:06 Temperature 39 C H Temperature Source Axillary Pulse Rate 72 72 71 Pulse Rate from SpO2 Sensor 72 72 Respiratory Rate 23 25 H 26 H Respiratory Effort / Characteristics Non-Labored Respiratory Depth Normal Respiratory Pattern Blood Pressure 140/54 L 140/54 L Blood Pressure Mean 82 66 Pulse Oximetry 99 100 100 Oxygen Delivery Method BiPAP Fraction of Inspired Oxygen 28 SaO2/FiO2 Ratio 353 Sepsis Recent Fever Within 48 Hours Yes Sepsis New/Unexplained Change in Mental Status No Sepsis Action Taken by Nursing Physician Notified 08/03/19 01:10 08/03/19 01:17 08/03/19 01:20 Temperature 39.4 C H Temperature Source Pulse Rate 72 70 Pulse Rate from SpO2 Sensor 73 70 Respiratory Rate 31 H 29 H Respiratory Effort / Characteristics Spontaneous Labored SOB on Exertion Respiratory Depth Respiratory Pattern Tachypnea Blood Pressure Blood Pressure Mean Pulse Oximetry 99 98 98 Oxygen Delivery Method BiPAP Fraction of Inspired Oxygen 28 28 SaO2/FiO2 Ratio 350 Sepsis Recent Fever Within 48 Hours Sepsis New/Unexplained Change in Mental Status Sepsis Action Taken by Nursing 08/03/19 01:30 08/03/19 01:40 08/03/19 01:50 Temperature Temperature Source Pulse Rate 73 71 71 Pulse Rate from SpO2 Sensor 73 72 72 Respiratory Rate 23 28 H 20 Respiratory Effort / Characteristics Respiratory Depth Respiratory Pattern Blood Pressure Blood Pressure Mean Pulse Oximetry 100 99 98 Oxygen Delivery Method Fraction of Inspired Oxygen SaO2/FiO2 Ratio Sepsis Recent Fever Within 48 Hours Sepsis New/Unexplained Change in Mental Status Sepsis Action Taken by Nursing 08/03/19 02:00 08/03/19 02:10 08/03/19 02:20 Temperature Temperature Source Pulse Rate 74 71 78 Pulse Rate from SpO2 Sensor 74 71 69 Respiratory Rate 28 H 27 H 19 Respiratory Effort / Characteristics Respiratory Depth Respiratory Pattern Blood Pressure Blood Pressure Mean Pulse Oximetry 99 100 100 Oxygen Delivery Method Fraction of Inspired Oxygen SaO2/FiO2 Ratio Sepsis Recent Fever Within 48 Hours Sepsis New/Unexplained Change in Mental Status Sepsis Action Taken by Nursing 08/03/19 02:30 Temperature Temperature Source Pulse Rate 70 Pulse Rate from SpO2 Sensor 70 Respiratory Rate 27 H Respiratory Effort / Characteristics Respiratory Depth Respiratory Pattern Blood Pressure Blood Pressure Mean Pulse Oximetry 97 Oxygen Delivery Method Fraction of Inspired Oxygen SaO2/FiO2 Ratio Sepsis Recent Fever Within 48 Hours Sepsis New/Unexplained Change in Mental Status Sepsis Action Taken by Nursing Laboratory Data Result diagrams: 08/03/19 06:09 08/03/19 06:09 Lab Results 08/03/19 08/03/19 08/03/19 Range/Units 01:22 01:22 01:22 WBC 9.23 (4.8-10.8) K/uL RBC 4.17 L (4.2-5.4) M/uL Hgb 11.5 L (12.0-16.0) g/dL Hct 36.7 L (37-47) % MCV 88.0 (80-100) fL MCH 27.6 (25-34) pg MCHC 31.3 L (32-36) g/dL RDW Std Deviation 53.2 H (36.4-46.3) fL RDW Coeff of Rashad 16.5 H (11.5-14.5) % Plt Count 151 (130-400) K/uL MPV 11.6 H (7.4-10.4) fL Immature Gran % (Auto) 0.2 % Neut % (Auto) 95.2 % Lymph % (Auto) 3.0 % Summers % (Auto) 1.6 % Eos % (Auto) 0.0 % Baso % (Auto) 0.0 % Immature Gran # (Auto) 0.02 (0.00-0.02) K/uL Neut # (Auto) 8.78 H (1.4-6.5) K/uL Lymph # (Auto) 0.28 L (1.2-3.4) K/uL Summers # (Auto) 0.15 (0.11-0.59) K/uL Eos # (Auto) 0.00 (0-0.5) K/uL Baso # (Auto) 0.00 (0-0.2) K/uL Absolute Nucleated RBC 0.00 (0-0) K/uL Nucleated RBC % (auto) 0.0 % PT 54.3 H (9.0-12.0) Seconds INR 5.7 H* (0.9-1.1) APTT 32.2 H (21.0-31.0) Seconds PTT Ratio 1.2 Sodium 136 (136-145) mmol/L Potassium 4.0 (3.5-5.1) mmol/L Chloride 102 (98-107) mmol/L Carbon Dioxide 28 (21-32) mmol/L Anion Gap 6.0 (3-11) BUN 58 H (7-18) mg/dl Creatinine 1.82 H (0.6-1.2) mg/dl Est Cr Clr Drug Dosing 18.7 ml/min Est GFR ( Amer) 28.6 Est GFR (Non-Af Amer) 24.7 BUN/Creatinine Ratio 31.8 H (10-20) Glucose 113 H (70-99) mg/dl Lactate (0.4-2.0) mmol/L Calcium 9.4 (8.5-10.1) mg/dl Magnesium 1.9 (1.8-2.4) mg/dl Total Bilirubin 0.7 (0.2-1) mg/dl AST 33 (15-37) U/L ALT 44 (12-78) U/L Alkaline Phosphatase 89 (45-117) U/L Total Protein 6.9 (6.4-8.2) gm/dl Albumin 3.4 (3.4-5.0) gm/dl Globulin 3.5 (2.5-4.0) gm/dl Albumin/Globulin Ratio 1.0 (0.9-2) Urine Color Urine Appearance (Clear) Urine pH (4.5-7.5) Ur Specific Lincoln (1.000-1.030) Urine Protein (Negative) Urine Glucose (UA) (Negative) Urine Ketones (Negative) Urine Blood (Negative) Urine Nitrite (Negative) Urine Bilirubin (Negative) Urine Urobilinogen (Negative) Ur Leukocyte Esterase (Negative) Urine WBC (Auto) (0-5) /hpf Urine RBC (Auto) (0-4) /hpf U Hyaline Cast (Auto) (0-5) /lpf U Epithel Cells (Auto) (0-5) /lpf Urine Bacteria (Auto) (Negative) Adenovirus (PCR) (NotDetected) B. pertussis DNA (PCR) (NotDetected) B.parapertussis DNA PCR (NotDetected) C. pneumoniae DNA (PCR) (NotDetected) Coronavirus OC43 (PCR) (NotDetected) Coronavirus HKU1 (PCR) (NotDetected) Coronavirus 229E (PCR) (NotDetected) Coronavirus NL63 (PCR) (NotDetected) Human Metapneumovir PCR (NotDetected) Influenza Type A (PCR) (NotDetected) Influenza Type B (PCR) (NotDetected) M. pneumoniae (PCR) (NotDetected) Parainfluenza 1 (PCR) (NotDetected) Parainfluenza 2 (PCR) (NotDetected) Parainfluenza 3 (PCR) (NotDetected) Parainfluenza 4 (PCR) (NotDetected) RSV (PCR) (NotDetected) Entero/Rhino (PCR) (NotDetected) 08/03/19 08/03/19 08/03/19 Range/Units 01:22 01:37 01:37 WBC (4.8-10.8) K/uL RBC (4.2-5.4) M/uL Hgb (12.0-16.0) g/dL Hct (37-47) % MCV (80-100) fL MCH (25-34) pg MCHC (32-36) g/dL RDW Std Deviation (36.4-46.3) fL RDW Coeff of Rashad (11.5-14.5) % Plt Count (130-400) K/uL MPV (7.4-10.4) fL Immature Gran % (Auto) % Neut % (Auto) % Lymph % (Auto) % Summers % (Auto) % Eos % (Auto) % Baso % (Auto) % Immature Gran # (Auto) (0.00-0.02) K/uL Neut # (Auto) (1.4-6.5) K/uL Lymph # (Auto) (1.2-3.4) K/uL Summers # (Auto) (0.11-0.59) K/uL Eos # (Auto) (0-0.5) K/uL Baso # (Auto) (0-0.2) K/uL Absolute Nucleated RBC (0-0) K/uL Nucleated RBC % (auto) % PT (9.0-12.0) Seconds INR (0.9-1.1) APTT (21.0-31.0) Seconds PTT Ratio Sodium (136-145) mmol/L Potassium (3.5-5.1) mmol/L Chloride (98-107) mmol/L Carbon Dioxide (21-32) mmol/L Anion Gap (3-11) BUN (7-18) mg/dl Creatinine (0.6-1.2) mg/dl Est Cr Clr Drug Dosing ml/min Est GFR ( Amer) Est GFR (Non-Af Amer) BUN/Creatinine Ratio (10-20) Glucose (70-99) mg/dl Lactate 3.3 H* (0.4-2.0) mmol/L Calcium (8.5-10.1) mg/dl Magnesium (1.8-2.4) mg/dl Total Bilirubin (0.2-1) mg/dl AST (15-37) U/L ALT (12-78) U/L Alkaline Phosphatase (45-117) U/L Total Protein (6.4-8.2) gm/dl Albumin (3.4-5.0) gm/dl Globulin (2.5-4.0) gm/dl Albumin/Globulin Ratio (0.9-2) Urine Color Yellow Urine Appearance Clear (Clear) Urine pH 5.0 (4.5-7.5) Ur Specific Lincoln 1.016 (1.000-1.030) Urine Protein Negative (Negative) Urine Glucose (UA) Negative (Negative) Urine Ketones Negative (Negative) Urine Blood Negative (Negative) Urine Nitrite Negative (Negative) Urine Bilirubin Negative (Negative) Urine Urobilinogen Negative (Negative) Ur Leukocyte Esterase Trace H (Negative) Urine WBC (Auto) 1-5 (0-5) /hpf Urine RBC (Auto) 0-4 (0-4) /hpf U Hyaline Cast (Auto) 1-5 (0-5) /lpf U Epithel Cells (Auto) 10-20 H (0-5) /lpf Urine Bacteria (Auto) Negative (Negative) Adenovirus (PCR) Not Detected (NotDetected) B. pertussis DNA (PCR) Not Detected (NotDetected) B.parapertussis DNA PCR Not Detected (NotDetected) C. pneumoniae DNA (PCR) Not Detected (NotDetected) Coronavirus OC43 (PCR) Not Detected (NotDetected) Coronavirus HKU1 (PCR) Not Detected (NotDetected) Coronavirus 229E (PCR) Not Detected (NotDetected) Coronavirus NL63 (PCR) Not Detected (NotDetected) Human Metapneumovir PCR Not Detected (NotDetected) Influenza Type A (PCR) Not Detected (NotDetected) Influenza Type B (PCR) Not Detected (NotDetected) M. pneumoniae (PCR) Not Detected (NotDetected) Parainfluenza 1 (PCR) Not Detected (NotDetected) Parainfluenza 2 (PCR) Not Detected (NotDetected) Parainfluenza 3 (PCR) Not Detected (NotDetected) Parainfluenza 4 (PCR) Not Detected (NotDetected) RSV (PCR) Not Detected (NotDetected) Entero/Rhino (PCR) Not Detected (NotDetected) Administered Medications Discontinued Medications Acetaminophen (Tylenol) 650 mg ME NOW STA Stop: 08/03/19 01:20 Last Admin: 08/03/19 01:38 Dose: 650 mg Documented by: [id number] Piperacillin Sod/Tazobactam (Sod 3.375 gm/ Dextrose) 100 ml in 115 mls @ 230 mls/hr IV NOW STA Stop: 08/03/19 02:37 Last Infusion: 08/03/19 04:49 Dose: 0 mls/hr Documented by: [id number] Admin: 08/03/19 04:15 Dose: 230 mls/hr Documented by: [id number] Levofloxacin/Dextrose (Levaquin/D5w) 750 mg in 150 mls @ 100 mls/hr IV NOW STA Stop: 08/03/19 03:37 Last Infusion: 08/03/19 04:03 Dose: 0 mls/hr Documented by: [id number] Admin: 08/03/19 02:33 Dose: 100 mls/hr Documented by: [id number] Sodium Chloride (Nss) 500 mls @ 999 mls/hr IV .Q31M ONE Stop: 08/03/19 02:55 Last Infusion: 08/03/19 03:10 Dose: 0 mls/hr Documented by: [id number] Admin: 08/03/19 02:33 Dose: 999 mls/hr Documented by: [id number] Sodium Chloride (Nss) 500 mls @ 125 mls/hr IV .Q4H ALICIA Stop: 09/02/19 02:29 Last Admin: 08/03/19 04:15 Dose: 125 mls/hr Documented by: [id number] Vancomycin HCl (Vancomycin Hcl) 1,000 mg in 270 mls @ 125 mls/hr IV NOW STA; Protocol Stop: 08/03/19 04:34 Last Infusion: 08/03/19 06:26 Dose: 0 mls/hr Documented by: [id number] Admin: 08/03/19 04:15 Dose: 125 mls/hr Documented by: [id number] Sodium Chloride (Nss 1000ml) 1,000 mls @ 999 mls/hr IV .Q1H1M ONE Stop: 08/03/19 05:28 Last Infusion: 08/03/19 05:46 Dose: 0 mls/hr Documented by: [id number] Admin: 08/03/19 04:45 Dose: 999 mls/hr Documented by: [id number] Sodium Chloride (Nss 1000ml) 1,000 mls @ 999 mls/hr IV .Q1H1M ONE Stop: 08/03/19 06:18 Last Infusion: 08/03/19 06:26 Dose: 0 mls/hr Documented by: [id number] Admin: 08/03/19 05:18 Dose: 999 mls/hr Documented by: [id number] Discharge Plan Visit Data Chief Complaint: Shortness of Breath/Dyspnea Stated Complaint: SHORT OF BREATH ED Provider: Kay Pascual Discharge Problem: Sepsis, Bilateral cellulitis of lower leg Discharge Instructions Interventions: ED Discharge Assessment Last Done: 08/03/19 06:00 Discharge Problem: Sepsis Qualifiers: Sepsis type: sepsis due to unspecified organism Sepsis acute organ dysfunction status: with acute organ dysfunction Severe sepsis acute organ dysfunction type: acute renal failure Acute renal failure type: unspecified Severe sepsis shock status: with septic shock Qualified Code(s): A41.9 - Sepsis, unspecified organism
[2019-08-03 01:58] LABS: Appearance Urine Clear (Clear); Bacteria Urine Automated Negative (Negative); Bilirubin Urine Negative (Negative); Blood Urine Negative (Negative); Color Urine Yellow; Glucose Urine UA Negative (Negative); Ketones Urine Negative (Negative); Leukocyte Esterase Urine Trace (Negative); Nitrite Urine Negative (Negative); Protein Urine Negative (Negative); RBC Urine Automated 0-4 /hpf (0-4); Specific Gravity Urine 1.016 (1.000-1.030); Urobilinogen Urine Negative (Negative)
[2019-08-03 02:00] LABS: Hematocrit (blood only) 36.7 % (37-47); Hemoglobin 11.5 g/dL (12.0-16.0); Immature Granulocytes # (auto) 0.02 K/uL (0.00-0.02); Immature Granulocytes % (auto) 0.2 %; Lymphocytes # (auto) 0.28 K/uL (1.2-3.4); Mean Corpuscular Hemoglobin 27.6 pg (25-34); Mean Corpuscular Hgb Conc 31.3 g/dL (32-36); Mean Platelet Volume 11.6 fL (7.4-10.4); Monocytes # (auto) 0.15 K/uL (0.11-0.59); Monocytes % (auto) 1.6 %; Neutrophils # (auto) 8.78 K/uL (1.4-6.5); Neutrophils % (auto) 95.2 %; Platelet Count 151 K/uL (130-400); RDW Coefficient of Variation 16.5 % (11.5-14.5); RDW Standard Deviation 53.2 fL (36.4-46.3); Red Blood Count 4.17 M/uL (4.2-5.4); White Blood Count 9.23 K/uL (4.8-10.8)
[2019-08-03] MEDS ORDERED: LEVOFLOXACIN/D5W 750 MG/150 ML BAG IV STA (02:08)
[2019-08-03] MEDS ORDERED: PIPERACILLIN/TAZOBACTAM 3.375 GM in DEXTROSE 5% 100 ML/100 ML BAG IV STA (02:08)
[2019-08-03] MEDS ORDERED: PIPERACILL/TAZOBAC CONSULT ACTIVE PRN ×2 (02:08→06:19)
[2019-08-03 02:12] LABS: Partial Thromboplastin Ratio 1.2; Partial Thromboplastin Time 32.2 Seconds (21.0-31.0); Prothrombin Time 54.3 Seconds (9.0-12.0)
[2019-08-03 02:14] LABS: INR 5.7 (0.9-1.1)
[2019-08-03 02:17] LABS: Albumin Level 3.4 gm/dl (3.4-5.0); BUN Creatinine Ratio 31.8 (10-20); Calcium 9.4 mg/dl (8.5-10.1); Creatinine Clr Calc Pharmacy 18.7 ml/min; Est GFR (African American) 28.6; Est GFR (Non-African American) 24.7; Magnesium 1.9 mg/dl (1.8-2.4)
[2019-08-03 02:19] LABS: Bilirubin,Total 0.7 mg/dl (0.2-1); Globulin 3.5 gm/dl (2.5-4.0); Total Protein 6.9 gm/dl (6.4-8.2)
[2019-08-03] MEDS ORDERED: SODIUM CHLORIDE 0.9% 500 ML IV ONE (02:25)
[2019-08-03] MEDS ORDERED: VANCOMYCIN HCL 1,000 MG/270 ML BAG IV STA (02:25)
[2019-08-03] MEDS ORDERED: VANCOMYCIN CONSULT ACTIVE PRN (02:25)
[2019-08-03] MEDS ORDERED: SODIUM CHLORIDE 0.9% 500 ML IV SCH (02:30)
[2019-08-03 02:47] LABS: Adenovirus PCR Not Detected (NotDetected); Bordetella parapertussis PCR Not Detected (NotDetected); Bordetella pertussis PCR Not Detected (NotDetected); Chlamydia pneumoniae PCR Not Detected (NotDetected); Coronavirus 229E PCR Not Detected (NotDetected); Coronavirus HKU1 PCR Not Detected (NotDetected); Coronavirus NL63 PCR Not Detected (NotDetected); Coronavirus OC43PCR Not Detected (NotDetected); Human Metapneumovirus PCR Not Detected (NotDetected); Influenza A PCR Not Detected (NotDetected); Influenza B PCR Not Detected (NotDetected); Mycoplasma pneumoniae PCR Not Detected (NotDetected); Parainfluenza Virus 1 PCR Not Detected (NotDetected); Parainfluenza Virus 2 PCR Not Detected (NotDetected); Parainfluenza Virus 3 PCR Not Detected (NotDetected); Parainfluenza Virus 4 PCR Not Detected (NotDetected); Respiratory Syncytial VirusPCR Not Detected (NotDetected); Rhinovirus/Enterovirus PCR Not Detected (NotDetected)
[2019-08-03] MEDS ORDERED: ONDANSETRON INJ 2 MG/ML 2 ML VIAL IV PRN ×2 (03:08→06:19)
[2019-08-03] MEDS ORDERED: ACETAMINOPHEN 325 MG TAB PO PRN ×2 (03:08→06:19)
--- NOTE | 2019-08-03 03:25 | History & Physical Report ---
Date of Service August 03, 2019 Assessment & Plan (1) Sepsis: Patient febrile, tachypneic, elevated lactic acid of 3.3. Her HR is normal range, however, she is pacer dependent. Source uncertain at this time, primary respiratory infection vs cellulitis. -Follow cultures -Empiric coverage with Daptomycin and Zosyn -IVF -Repeat lactate Present on Admission?: Yes (2) Acute respiratory failure with hypoxia: Patient tachypneic, hypoxic requiring increased O2 support, CPAP/BIPAP in the field, Also with fever, elevated lactate. Lungs are CTA with no rales/rhonchi/wheezes. No obvious PNA noted on CXR. Ddx to include PNA, viral/bacterial or Covid-19, COPD, aspiration, sepsis No recent travel. No sick contacts. No known COVID-19 exposures. Patient has fever/tachypnea/SOB/high Neut:Lymph, negative Biofire test -Admit to PCU -Continue supplemental O2 to maintain saturations 88 - 92% -Check LDH, Ddimer, Influenza, SARS-CoV2, procalcitonin -Continue isolation precaution - [employer] [employer]TACT -Follow culture results -Tylenol as needed for pain or fever Present on Admission?: Yes (3) Cellulitis of both lower extremities: Patient with warmth, redness and tenderness of bilateral LE. ?Cellulitis as cause of sepsis? No crepitus/bullae/lymphangitic streaking to suggest necrotizing fasciitis -Blu and date area of redness daily -Daptomycin and Zosyn Present on Admission?: Yes (4) Moderate COPD (chronic obstructive pulmonary disease): No wheezing at present. Patient was on a PO steroid taper prescribed outpatient. -WIll avoid nebulized treatments until test for coronavirus resulted -Continue Advair, Albuterol HFA -Supplemental O2 as needed, goal sats 88-92% -Will hold steroids for now Present on Admission?: Yes (5) CKD (chronic kidney disease) stage 3, GFR 30-59 ml/min: ELevated BUN and Cr in setting of sepsis. Patient appears clinically dry on exam -Continue IVF -Repeat labs -Avoid nephrotoxic agents, Hold Lasix and Spironolactone -Renal dosing where needed Present on Admission?: Yes (6) Hypothyroidism: Chronic -Continue Synthroid Present on Admission?: Yes (7) GERD (gastroesophageal reflux disease): Chronic -Continue Omeprazole Present on Admission?: Yes (8) Chronic a-fib: V-paced at 71bpm, anticoagulated with Coumadin, supra-therapeutic INR at 5.7. No active bleeding noted -Hold Coumadin -Repeat INR daily Present on Admission?: Yes (9) HTN (hypertension): Stable -Continue metoprolol -Monitor Present on Admission?: Yes (10) Dementia: Chronic -Contiinue Aricept Present on Admission?: Yes Admission and Anticipated Discharge Date Admission Date: 08/03/19 Anticipated date of discharge: 08/06/19 History of Present Illness Chief Complaint: Fever, SOB Primary Care Provider: [facility] Ana Rosa Wolf is an 84yo C female presenting from [facility] with fever, SOB and Hypoxia. Patient was seen in the ER on 07/31/19 with complaint of SOB and feeling cold. She was afebrile at that time, tachypneic and saturating 99% on her usual 2L NC. Lungs noted to be clear throughout. She was discharged to [facility] in stable condition. She was recently started on a Prednisone taper. This evening she developed a fever and became tachypneic and hypoxic to 86% while on her usual 2L NC. She vomited around 22:30 at [facility] after which she became more short of breath. EMS was called and the patient was placed on CPAP in the field for hypoxia and increased work of breathing. When she arrived to the ER she was found to be febrile to 39.4, tachypneic at 29bpm. She was transitioned to BiPAP 10/5, 28% FiO2. On exam she is unable to provide any history. She says that she "feels sick" but otherwise does not offer any history. ER Course: Tylenol, Levaquin, Zofran, Zosyn, NSS x 1L, Vancomycin x 1 gm Allergies Allergy/AdvReac Type Severity Reaction Status Date / Time morphine Allergy Intermediate . Unverified 08/03/19 01:24 oxycodone AdvReac Intermediate ALTERED Verified 08/03/19 01:24 MENTAL STATUS, N/V alcohol AdvReac Mild PASSES OUT Verified 08/03/19 01:24 WITH A SIP codeine AdvReac Mild N/V - Verified 08/03/19 01:24 RECEIVED MORPHINE ON PRIOR ADMIT W/O RXN Home Medications Home Medications Medication Instructions Recorded Confirmed Type acetaminophen [Tylenol Extra 1,000 mg PO BID 03/07/19 08/03/19 History Strength] allopurinol 50 mg PO QAM 03/07/19 08/03/19 History aspirin 81 mg PO QAM 03/07/19 08/03/19 History calcium carbonate-vitamin D3 1 tab PO QAM 03/07/19 08/03/19 History [Oyster Shell Calcium-Vit D3] docusate sodium 100 mg PO BID 03/07/19 08/03/19 History donepezil 10 mg PO HS 03/07/19 08/03/19 History fluticasone propion-salmeterol 1 inh INHALATION Q12 03/07/19 08/03/19 History [Advair Diskus] furosemide 40 mg PO QAM 03/07/19 08/03/19 History levothyroxine 50 mcg PO QAM 03/07/19 08/03/19 History lidocaine 1 patch TOPICAL QAM 03/07/19 08/03/19 History metoprolol tartrate 12.5 mg PO BID 03/07/19 08/03/19 History mirtazapine 15 mg PO QPM 03/07/19 08/03/19 History omeprazole 20 mg PO BID 03/07/19 08/03/19 History spironolactone 12.5 mg PO QAM 03/07/19 08/03/19 History tramadol 50 mg PO Q6 PRN #7 tab 03/09/19 08/03/19 Rx calcitriol 0.25 mcg PO QAM 05/29/19 08/03/19 History warfarin 5 mg PO QPM 07/31/19 08/03/19 History acetaminophen 650 mg PO Q12 PRN MDD 3gm 08/03/19 08/03/19 History acetaminophen 650 mg PO Q12 PRN MDD 3gm 08/03/19 08/03/19 History ascorbic acid (vitamin C) 250 mg PO DAILY 08/03/19 08/03/19 History furosemide 30 mg PO DAILY 08/03/19 08/03/19 History ipratropium-albuterol 3 ml INHALATION QID 08/03/19 08/03/19 History ipratropium-albuterol 3 ml NEB .EVERY 2 HOURS PRN 08/03/19 08/03/19 History melatonin 3 mg PO HS 08/03/19 08/03/19 History nitroglycerin [Nitrostat] 0.4 mg SUBLINGUAL UD PRN 08/03/19 08/03/19 History ondansetron HCl 4 mg PO Q8 PRN 08/03/19 08/03/19 History prednisone 10 mg PO UD 08/03/19 08/03/19 History Past Med/Surg History Medical History (Updated 08/03/19 @ 04:05 by Joann Iglesias DO) Acute respiratory failure with hypoxia Cellulitis of both lower extremities Chronic a-fib (Chronic) Chronic osteoarthritis (Chronic) CKD (chronic kidney disease) stage 3, GFR 30-59 ml/min (Chronic) Dementia Diastolic CHF (Chronic) Dyslipidemia (Chronic) GERD (gastroesophageal reflux disease) (Chronic) HTN (hypertension) (Chronic) Hypothyroidism (Chronic) Moderate COPD (chronic obstructive pulmonary disease) (Chronic) Surgical History (Updated 08/03/19 @ 03:40 by Joann Iglesias DO) History of appendectomy (Resolved) History of cholecystectomy (Resolved) History of hysterectomy (Resolved) History of knee replacement (Resolved) "s/p revision for infection" History of lumbar laminectomy for spinal cord decompression (Resolved) History of tonsillectomy (Resolved) History of total right hip arthroplasty (Resolved) "2001" History of tubal ligation (Resolved) S/P placement of cardiac pacemaker (Resolved) S/P tonsillectomy and adenoidectomy (Resolved) Family History (Updated 08/03/19 @ 03:41 by Joann Iglesias DO) Other No significant family history Social History Preferred Language: Tajik Communication Ability: Effective 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 Beliefs That Will Affect Care: None Current Living Situation: Personal Care Facility Current Living Situation Comment: [facility] Feels Safe at Home: Yes Smoking Status: Unknown if ever smoked Hx Alcohol Use: No Hx Substance Use: No Review of Systems Review of Systems: Unobtainable due to cognitive status Physical Exam Physical Exam: General: patient resting, appears uncomfortable in bed, BiPAP in place, ill in appearance, AA&O only to self Skin: warm, dry, warmth, redness of bilateral LEs HEENT: NC/AT, PERRL, EOMI, anicteric sclera, conjunctiva without injection, external ear normal to inspection and nontender, nares patent, moist mucus membranes, dentition intact, no oropharyngeal lesions, neck supple, trachea midline, no LAD, no thyromegaly, no JVD Heart: +S1/S2, regular, no m/r/g Lungs: tachypneic, equal air entry bilaterally, no rales/rhonchi/wheezes Abd: +BS, soft, NT/ND, no masses/organomegaly/ascites Ext: warm, 2+ pulses in UE/LE bilaterally, trace pitting edema, skin thickening bilaterally, findings consistent with chronic venous stasis, warmth/redness and tenderness of bilateral LE, no bleeding/drainage Neuro: patient responds to voice, follows some commands, moving all extremities with equal strength Results & Data Results & Data ([facility]) Vital Signs (Past 12 Hours) Vital Signs Temp Pulse Resp BP Pulse Ox 08/03/19 02:30 70 27 H 97 08/03/19 02:20 78 19 100 08/03/19 02:10 71 27 H 100 08/03/19 02:00 74 28 H 99 08/03/19 01:50 71 20 98 08/03/19 01:40 71 28 H 99 08/03/19 01:30 73 23 100 08/03/19 01:20 39.4 C H 70 29 H 98 08/03/19 01:17 98 08/03/19 01:10 72 31 H 99 08/03/19 01:06 71 26 H 100 08/03/19 01:05 72 25 H 140/54 L 100 08/03/19 00:48 39 C H 72 23 140/54 L 99 Laboratory Results Lab Results 08/03/19 08/03/19 08/03/19 Range/Units 01:22 01:22 01:22 WBC 9.23 (4.8-10.8) K/uL RBC 4.17 L (4.2-5.4) M/uL Hgb 11.5 L (12.0-16.0) g/dL Hct 36.7 L (37-47) % MCV 88.0 (80-100) fL MCH 27.6 (25-34) pg MCHC 31.3 L (32-36) g/dL RDW Std Deviation 53.2 H (36.4-46.3) fL RDW Coeff of Rashad 16.5 H (11.5-14.5) % Plt Count 151 (130-400) K/uL MPV 11.6 H (7.4-10.4) fL Immature Gran % (Auto) 0.2 % Neut % (Auto) 95.2 % Lymph % (Auto) 3.0 % [place] % (Auto) 1.6 % Eos % (Auto) 0.0 % Baso % (Auto) 0.0 % Immature Gran # (Auto) 0.02 (0.00-0.02) K/uL Neut # (Auto) 8.78 H (1.4-6.5) K/uL Lymph # (Auto) 0.28 L (1.2-3.4) K/uL [place] # (Auto) 0.15 (0.11-0.59) K/uL Eos # (Auto) 0.00 (0-0.5) K/uL Baso # (Auto) 0.00 (0-0.2) K/uL Absolute Nucleated RBC 0.00 (0-0) K/uL Nucleated RBC % (auto) 0.0 % PT 54.3 H (9.0-12.0) Seconds INR 5.7 H* (0.9-1.1) APTT 32.2 H (21.0-31.0) Seconds PTT Ratio 1.2 Sodium 136 (136-145) mmol/L Potassium 4.0 (3.5-5.1) mmol/L Chloride 102 (98-107) mmol/L Carbon Dioxide 28 (21-32) mmol/L Anion Gap 6.0 (3-11) BUN 58 H (7-18) mg/dl Creatinine 1.82 H (0.6-1.2) mg/dl Est Cr Clr Drug Dosing 18.7 ml/min Est GFR ( Amer) 28.6 Est GFR (Non-Af Amer) 24.7 BUN/Creatinine Ratio 31.8 H (10-20) Glucose 113 H (70-99) mg/dl Lactate (0.4-2.0) mmol/L Calcium 9.4 (8.5-10.1) mg/dl Magnesium 1.9 (1.8-2.4) mg/dl Total Bilirubin 0.7 (0.2-1) mg/dl AST 33 (15-37) U/L ALT 44 (12-78) U/L Alkaline Phosphatase 89 (45-117) U/L Total Protein 6.9 (6.4-8.2) gm/dl Albumin 3.4 (3.4-5.0) gm/dl Globulin 3.5 (2.5-4.0) gm/dl Albumin/Globulin Ratio 1.0 (0.9-2) Urine Color Urine Appearance (Clear) Urine pH (4.5-7.5) Ur Specific [place] (1.000-1.030) Urine Protein (Negative) Urine Glucose (UA) (Negative) Urine Ketones (Negative) Urine Blood (Negative) Urine Nitrite (Negative) Urine Bilirubin (Negative) Urine Urobilinogen (Negative) Ur Leukocyte Esterase (Negative) Urine WBC (Auto) (0-5) /hpf Urine RBC (Auto) (0-4) /hpf U Hyaline Cast (Auto) (0-5) /lpf U Epithel Cells (Auto) (0-5) /lpf Urine Bacteria (Auto) (Negative) Adenovirus (PCR) (NotDetected) B. pertussis DNA (PCR) (NotDetected) B.parapertussis DNA PCR (NotDetected) C. pneumoniae DNA (PCR) (NotDetected) Coronavirus OC43 (PCR) (NotDetected) Coronavirus HKU1 (PCR) (NotDetected) Coronavirus 229E (PCR) (NotDetected) Coronavirus NL63 (PCR) (NotDetected) Human Metapneumovir PCR (NotDetected) Influenza Type A (PCR) (NotDetected) Influenza Type B (PCR) (NotDetected) M. pneumoniae (PCR) (NotDetected) Parainfluenza 1 (PCR) (NotDetected) Parainfluenza 2 (PCR) (NotDetected) Parainfluenza 3 (PCR) (NotDetected) Parainfluenza 4 (PCR) (NotDetected) RSV (PCR) (NotDetected) Entero/Rhino (PCR) (NotDetected) 08/03/19 08/03/19 08/03/19 Range/Units 01:22 01:37 01:37 WBC (4.8-10.8) K/uL RBC (4.2-5.4) M/uL Hgb (12.0-16.0) g/dL Hct (37-47) % MCV (80-100) fL MCH (25-34) pg MCHC (32-36) g/dL RDW Std Deviation (36.4-46.3) fL RDW Coeff of Rashad (11.5-14.5) % Plt Count (130-400) K/uL MPV (7.4-10.4) fL Immature Gran % (Auto) % Neut % (Auto) % Lymph % (Auto) % [place] % (Auto) % Eos % (Auto) % Baso % (Auto) % Immature Gran # (Auto) (0.00-0.02) K/uL Neut # (Auto) (1.4-6.5) K/uL Lymph # (Auto) (1.2-3.4) K/uL [place] # (Auto) (0.11-0.59) K/uL Eos # (Auto) (0-0.5) K/uL Baso # (Auto) (0-0.2) K/uL Absolute Nucleated RBC (0-0) K/uL Nucleated RBC % (auto) % PT (9.0-12.0) Seconds INR (0.9-1.1) APTT (21.0-31.0) Seconds PTT Ratio Sodium (136-145) mmol/L Potassium (3.5-5.1) mmol/L Chloride (98-107) mmol/L Carbon Dioxide (21-32) mmol/L Anion Gap (3-11) BUN (7-18) mg/dl Creatinine (0.6-1.2) mg/dl Est Cr Clr Drug Dosing ml/min Est GFR ( Amer) Est GFR (Non-Af Amer) BUN/Creatinine Ratio (10-20) Glucose (70-99) mg/dl Lactate 3.3 H* (0.4-2.0) mmol/L Calcium (8.5-10.1) mg/dl Magnesium (1.8-2.4) mg/dl Total Bilirubin (0.2-1) mg/dl AST (15-37) U/L ALT (12-78) U/L Alkaline Phosphatase (45-117) U/L Total Protein (6.4-8.2) gm/dl Albumin (3.4-5.0) gm/dl Globulin (2.5-4.0) gm/dl Albumin/Globulin Ratio (0.9-2) Urine Color Yellow Urine Appearance Clear (Clear) Urine pH 5.0 (4.5-7.5) Ur Specific [place] 1.016 (1.000-1.030) Urine Protein Negative (Negative) Urine Glucose (UA) Negative (Negative) Urine Ketones Negative (Negative) Urine Blood Negative (Negative) Urine Nitrite Negative (Negative) Urine Bilirubin Negative (Negative) Urine Urobilinogen Negative (Negative) Ur Leukocyte Esterase Trace H (Negative) Urine WBC (Auto) 1-5 (0-5) /hpf Urine RBC (Auto) 0-4 (0-4) /hpf U Hyaline Cast (Auto) 1-5 (0-5) /lpf U Epithel Cells (Auto) 10-20 H (0-5) /lpf Urine Bacteria (Auto) Negative (Negative) Adenovirus (PCR) Not Detected (NotDetected) B. pertussis DNA (PCR) Not Detected (NotDetected) B.parapertussis DNA PCR Not Detected (NotDetected) C. pneumoniae DNA (PCR) Not Detected (NotDetected) Coronavirus OC43 (PCR) Not Detected (NotDetected) Coronavirus HKU1 (PCR) Not Detected (NotDetected) Coronavirus 229E (PCR) Not Detected (NotDetected) Coronavirus NL63 (PCR) Not Detected (NotDetected) Human Metapneumovir PCR Not Detected (NotDetected) Influenza Type A (PCR) Not Detected (NotDetected) Influenza Type B (PCR) Not Detected (NotDetected) M. pneumoniae (PCR) Not Detected (NotDetected) Parainfluenza 1 (PCR) Not Detected (NotDetected) Parainfluenza 2 (PCR) Not Detected (NotDetected) Parainfluenza 3 (PCR) Not Detected (NotDetected) Parainfluenza 4 (PCR) Not Detected (NotDetected) RSV (PCR) Not Detected (NotDetected) Entero/Rhino (PCR) Not Detected (NotDetected) Diagnostic Findings CXR with no obvious signs of PNA, CHF, PTX ECG Additional Comments: V-paced at 71bpm, no ischemic changes Code Status & VTE Plan Code Status DNR/DNI VTE Prophylaxis Plan VTE Prophylaxis will be ordered: No PG Care Time/CCT Total # of Minutes Spent Total Time Spent with Patient: Total time spent is greater than 50% in coordination of care (as documented) at patient's floor/unit and/or counseling patient: Coding Level of Care Code 20211 Initial Inpt Care Lvl 3 Diagnoses Sepsis A41.9 Sepsis type: sepsis due to unspecified organism Sepsis acute organ dysfunction status: unspecified Acute respiratory failure with hypoxia J96.01 Cellulitis of both lower extremities L03.115; L03.116 Moderate COPD (chronic obstructive pulmonary disease) J44.9 CKD (chronic kidney disease) stage 3, GFR 30-59 ml/min N18.3 Hypothyroidism E03.9 Hypothyroidism type: unspecified GERD (gastroesophageal reflux disease) K21.9 Esophagitis presence: esophagitis presence not specified Chronic a-fib I48.2 HTN (hypertension) I10 Hypertension type: essential hypertension Dementia F03.90 (1) Hypothyroidism Hypothyroidism type: unspecified Qualified Code(s): E03.9 - Hypothyroidism, unspecified (2) GERD (gastroesophageal reflux disease) Esophagitis presence: esophagitis presence not specified Qualified Code(s): K21.9 - Gastro-esophageal reflux disease without esophagitis (3) HTN (hypertension) Hypertension type: essential hypertension Qualified Code(s): I10 - Essential (primary) hypertension (4) Sepsis Sepsis type: sepsis due to unspecified organism Sepsis acute organ dysf unction status: unspecified Qualified Code(s): A41.9 - Sepsis, unspecified organism
[2019-08-03] MEDS ORDERED: SODIUM CHLORIDE 0.9% 1000ML 1,000 ML IV ONE ×2 (04:28→05:18)
[2019-08-03] MEDS ORDERED: SODIUM CHLORIDE 0.9% 1000ML 1,000 ML IV SCH ×2 (06:19→09:35)
[2019-08-03] MEDS ORDERED: DAPTOMYCIN CONSULT ACTIVE PRN (06:19)
[2019-08-03 06:21] LABS: Mean Corpuscular Hgb Conc 30.6 g/dL (32-36); Mean Platelet Volume 11.4 fL (7.4-10.4); Platelet Count 106 K/uL (130-400)
[2019-08-03 06:40] LABS: D Dimer 340 ug/L FEU (0-500); Prothrombin Time 61.7 Seconds (9.0-12.0)
[2019-08-03 06:45] LABS: Albumin Level 2.5 gm/dl (3.4-5.0); BUN Creatinine Ratio 27.8 (10-20); Bilirubin Direct 0.4 mg/dl (0-0.2); Calcium 7.9 mg/dl (8.5-10.1); Creatinine Clr Calc Pharmacy 17.8 ml/min; Est GFR (Non-African American) 23.3; Hematocrit (blood only) 33.3 % (37-47); Hemoglobin 10.2 g/dL (12.0-16.0); Mean Corpuscular Hemoglobin 27.3 pg (25-34); Mean Corpuscular Volume 89.3 fL (80-100); Potassium 3.5 mmol/L (3.5-5.1); RDW Coefficient of Variation 16.6 % (11.5-14.5); RDW Standard Deviation 54.2 fL (36.4-46.3); Red Blood Count 3.73 M/uL (4.2-5.4); White Blood Count 8.34 K/uL (4.8-10.8)
[2019-08-03 06:46] LABS: Hypochromasia Present; Immature Granulocytes # (auto) 0.05 K/uL (0.00-0.02); Immature Granulocytes % (auto) 0.6 %; Lymphocytes # (auto) 0.21 K/uL (1.2-3.4); Lymphocytes % (auto) 2.5 %; Monocytes # (auto) 0.72 K/uL (0.11-0.59); Monocytes % (auto) 8.6 %; Neutrophils # (auto) 7.36 K/uL (1.4-6.5); Neutrophils % (auto) 88.3 %; Toxic Granulation 1+; Toxic Vacuolation 1+
[2019-08-03 06:48] LABS: INR 6.5 (0.9-1.1)
[2019-08-03 06:55] LABS: Bilirubin,Total 0.7 mg/dl (0.2-1); Phosphorus 1.4 mg/dl (2.5-4.9); Total Protein 5.6 gm/dl (6.4-8.2)
[2019-08-03] MEDS ORDERED: POTASSIUM PHOS 3 MMOL/1 ML INFUSION IV STA (07:00)
[2019-08-03] MEDS ORDERED: POTASSIUM PHOSPHATE 15 MMOL in SODIUM CHLORIDE 0.9% 250 ML IV STA (07:03)
--- NOTE | 2019-08-03 07:57 | Hospitalist Progress Note ---
Date of Service August 03, 2019 Assessment & Plan (1) Sepsis: Patient febrile, tachypneic, elevated lactic acid of 3.3. Her HR is normal range, however, she is pacer dependent. Source uncertain at this time, primary respiratory infection, UTI vs cellulitis. -Follow cultures -Empiric coverage with Daptomycin and Zosyn initial blood cultures are showing gram-positive in chains -IVF -Repeat lactate has risen, pt may need pressors COVID-19 testing is negative (2) Acute respiratory failure with hypoxia: Patient tachypneic, hypoxic requiring increased O2 support, CPAP/BIPAP in the field, Also with fever, elevated lactate. Lungs are CTA with no rales/rhonchi/wheezes. No obvious PNA noted on CXR. COVID-19 is negative -Continue supplemental O2 to maintain saturations 88 - 92% Patient is acting as if this is sepsis requiring significant fluid boluses to sustain a mean arterial pressure greater than 65. The gram-positive's on blood cultures could be skin in origin however she also has an abnormal urinalysis on presentation. We will continue her dual antibiotic therapy until we have further evaluation to avoid streamlining antibiotics too soon having a resistant organism. -Tylenol as needed for pain or fever (3) Cellulitis of both lower extremities: Patient with warmth, redness and tenderness of bilateral LE. Right greater than left?Cellulitis as cause of sepsis? -Daptomycin and Zosyn Patient has baseline skin changes which could explain the portal of entry (4) Moderate COPD (chronic obstructive pulmonary disease): No wheezing at present. Patient was on a PO steroid taper prescribed outpatient. Patient was not initiated on nebulizer treatments due to coronavirus testing being pending it is negative however she does not have any clinical signs or wheezing at this time we will continue her typical medications without augmenting them at this time -Continue Advair, Albuterol HFA -Supplemental O2 as needed, goal sats 88-92% -Will hold steroids for now (5) CKD (chronic kidney disease) stage 3, GFR 30-59 ml/min: ELevated BUN and Cr in setting of sepsis. Patient appears clinically dry on exam -Continue IVF -Repeat labs -Avoid nephrotoxic agents, Hold Lasix and Spironolactone -Renal dosing where needed (6) Hypothyroidism: Chronic -Continue Synthroid (7) GERD (gastroesophageal reflux disease): Chronic -Continue Omeprazole (8) Chronic a-fib: V-paced at 71bpm, anticoagulated with Coumadin, supra-therapeutic INR at 5.7. No active bleeding noted -Coagulopathy secondary to Coumadin use, hold Coumadin -Repeat INR daily no active signs of bleeding if such would administer vitamin K (9) HTN (hypertension): Stable -Continue metoprolol -Monitor (10) Dementia: Chronic -Contiinue Aricept Admission and Anticipated Discharge Date Admission Date: August 03, 2019 Subjective despite lower blood pressure the pt is mentating well and making urine she did require additional fluid bolus, she has no focal complaints and did have negative COVID Review of Systems Review of Systems: Mild distress and moderate fatigue no headache, blurry or double vision no speech or swallowing issues no chest pain, pressure or palpitations no shortness of breath, complains of nonproductive cough but no wheezes no abdominal pain, nausea or vomiting, diarrhea or constipation no dysuria, hematuria or frequency no focal joint pain or swelling no back pain, CVA tenderness or radicular pain no bruising, bleeding or rashes no focal signs of weakness or numbness or altered sensation Is obviously note the patient does have significant dementia no complaints or anxiety or depression Physical Exam Physical Exam: The patient appeared chronically ill and thin Vital signs as documented. Head exam is unremarkable. No scleral icterus Neck is without JVD, thyromegaly, or carotid bruits. Lungs are coarse bilaterally without focal loss Cardiac exam, Rhythm is regular.. Systolic ejection murmurs heard Patient reportedly had previously chest wall cellulitis does not appear to be present at this time Abdominal exam reveals normal bowel sounds, soft is diffusely mildly tender, no masses Extremities are changes chronic venous stasis her right leg is slightly more er ythematous than her left Skin is without bruises or rashes with exception of increased redness to her leg Psychologically is with concerns for dementia she is not oriented to time or place Results & Data Results & Data ([facility]) Vital Signs (Past 12 Hours) Vital Signs Temp Pulse Pulse Resp BP BP Pulse Ox 08/03/19 06:43 98.1 F 70 22 74/44 L 96 08/03/19 05:44 70 20 90/46 L 95 08/03/19 05:30 70 21 88/43 L 98 08/03/19 05:00 71 22 85/46 L 98 08/03/19 04:52 70 21 81/41 L 97 08/03/19 04:19 99.5 F 71 20 79/47 L 98 08/03/19 04:04 99 08/03/19 02:30 70 27 H 97 08/03/19 02:20 78 19 100 08/03/19 02:10 71 27 H 100 08/03/19 02:00 74 28 H 99 08/03/19 01:50 71 20 98 08/03/19 01:40 71 28 H 99 08/03/19 01:30 73 23 100 08/03/19 01:20 102.9 F H 70 29 H 98 08/03/19 01:17 98 08/03/19 01:10 72 31 H 99 08/03/19 01:06 71 26 H 100 08/03/19 01:05 72 25 H 140/54 L 100 08/03/19 00:48 102.2 F H 72 23 140/54 L 99 PG Care Time/CCT Total # of Minutes Spent Total Time Spent with Patient: Total time spent is greater than 50% in coordination of care (as documented) at patient's floor/unit and/or counseling patient: Coding Level of Care Code 22320 Subseq Hosp Care Lvl 3 Diagnoses Sepsis A41.9 Sepsis acute organ dysfunction status: unspecified Sepsis type: sepsis due to unspecified organism Acute respiratory failure with hypoxia J96.01 Cellulitis of both lower extremities L03.115; L03.116 Moderate COPD (chronic obstructive pulmonary disease) J44.9 CKD (chronic kidney disease) stage 3, GFR 30-59 ml/min N18.3 Hypothyroidism E03.9 Hypothyroidism type: unspecified GERD (gastroesophageal reflux disease) K21.9 Esophagitis presence: esophagitis presence not specified Chronic a-fib I48.2 HTN (hypertension) I10 Hypertension type: essential hypertension Dementia F03.90 (1) Hypothyroidism Hypothyroidism type: unspecified Qualified Code(s): E03.9 - Hypothyroidism, unspecified (2) Sepsis Sepsis acute organ dysfunction status: unspecified Sepsis type: sepsis due to unspecified organism Qualified Code(s): A41.9 - Sepsis, unspecified organism (3) GERD (gastroesophageal reflux disease) Esophagitis presence: esophagitis presence not specified Qualified Code(s): K21.9 - Gastro-esophageal reflux disease without esophagitis (4) HTN (hypertension) Hypertension type: essential hypertension Qualified Code(s): I10 - Essential (primary) hypertension
--- NOTE | 2019-08-03 07:58 | XRay Report ---
XR chest 1V portable CLINICAL HISTORY: SEPSIS COMPARISON STUDY: Chest CT August 25, 2018. Chest radiograph July 31, 2019 FINDINGS: Dual lead left subclavian pacemaker is in place. There is no pneumothorax or pleural effusi on. There is no consolidation or evidence for pulmonary edema. Note is made of moderate cardiomegaly. The appearance of the chest is unchanged. IMPRESSION: No acute cardiopulmonary findings. No change in appearance of the chest. ACT 112: Negative or not required by law. Electronically signed by: Noé Penn M.D. 08/03/2019 7:57 AM
[2019-08-03 08:07] LABS: Base Excess VBG -2.4 mEq/L; HCO3 VBG 24 mmol/L; PCO2 VBG 47 mmHg (38-50); PO2 VBG 31 mmHg; pH VBG 7.32 (7.36-7.41)
[2019-08-03 08:08] LABS: Oxygen Saturation VBG < 60.0 %
[2019-08-03] MEDS: allopurinoL 100 MG TAB PO SCH (08:37)
[2019-08-03] MEDS: DOCUSATE SODIUM 100 MG CAP PO SCH ×2 (08:38→20:48)
[2019-08-03] MEDS: ASPIRIN 81 MG ECTAB PO SCH (08:38)
[2019-08-03] MEDS: CALCITRIOL 0.25 MCG CAPSULE PO SCH (08:38)
[2019-08-03] MEDS: LEVOTHYROXINE SODIUM 50 MCG TABLET PO SCH (08:38)
[2019-08-03] MEDS: PANTOprazole 40 MG TAB PO SCH ×2 (08:38→20:48)
[2019-08-03] MEDS: FLUTICASONE/VILANTEROL 100/25MCG 14 PUFFS/INHALER INH SCH (08:39)
[2019-08-03] MEDS: LIDOCAINE 5% 1 PATCH TD SCH (08:39)
[2019-08-03] MEDS ORDERED: METOPROLOL TARTRATE 25 MG TAB PO SCH (09:00)
[2019-08-03] MEDS ORDERED: Nursing to Pharmacy Communication ONE (09:24)
[2019-08-03] MEDS: PIPERACILLIN/TAZOBACTAM 3.375 GM in DEXTROSE 5% 100 ML IV SCH ×2 (11:06→23:49)
[2019-08-03] MEDS ORDERED: DAPTOmycin 200 MG in SYRINGE 0 ML IV SCH (12:00)
[2019-08-03] MEDS: TRAMADOL HCL 50 MG TABLET PO PRN ×2 (12:46→18:18)
--- NOTE | 2019-08-03 15:22 | Electrocardiogram Report ---
Test Reason : Blood Pressure : / mmHG Vent. Rate : 071 BPM Atrial Rate : 063 BPM P-R Int : 000 ms QRS Dur : 156 ms QT Int : 424 ms P-R-T Axes : 000 -78 083 degrees QTc Int : 460 ms Ventricular-paced rhythm Abnormal ECG When compared with ECG of 31-JUL-2019 11:43, Vent. rate has decreased BY 6 BPM Confirmed by Abdoulaye Rangel ([id number]) on 08/03/2019 3:22:28 PM Referred By: [facility] Confirmed By:Benjamín Rangel
[2019-08-03] MEDS: MIRTAZAPINE TAB 15 MG TAB PO SCH (20:48)
[2019-08-03] MEDS: DONEPEZIL HCL 10 MG TAB PO SCH (20:48)
[2019-08-03] MEDS: MELATONIN 3 MG TAB PO SCH (20:48)
[2019-08-03] MEDS: SODIUM CHLORIDE 0.9% 1000ML 1,000 ML IV SCH (23:54)
[2019-08-04] MEDS: LEVOTHYROXINE SODIUM 50 MCG TABLET PO SCH (06:08)
[2019-08-04] MEDS: FLUTICASONE/VILANTEROL 100/25MCG 14 PUFFS/INHALER INH SCH (08:08)
[2019-08-04] MEDS: ASPIRIN 81 MG ECTAB PO SCH (08:10)
[2019-08-04] MEDS: LIDOCAINE 5% 1 PATCH TD SCH (08:10)
[2019-08-04] MEDS: DOCUSATE SODIUM 100 MG CAP PO SCH ×2 (08:10→20:32)
[2019-08-04] MEDS: allopurinoL 100 MG TAB PO SCH (08:11)
[2019-08-04] MEDS: CALCITRIOL 0.25 MCG CAPSULE PO SCH (08:11)
[2019-08-04] MEDS: PANTOprazole 40 MG TAB PO SCH ×2 (08:11→20:32)
[2019-08-04] MEDS: SODIUM CHLORIDE 0.9% 1000ML 1,000 ML IV SCH ×2 (08:17→18:23)
[2019-08-04] MEDS: cefTRIAXone SODIUM 2,000 MG in DEXTROSE 5% 50 ML IV SCH (09:06)
[2019-08-04 09:39] LABS: BUN Creatinine Ratio 29.7 (10-20); Calcium 7.7 mg/dl (8.5-10.1); Creatinine Clr Calc Pharmacy 19.4 ml/min; Est GFR (African American) 28.6; Est GFR (Non-African American) 24.7; Potassium 4.6 mmol/L (3.5-5.1)
--- NOTE | 2019-08-04 12:31 | Hospitalist Progress Note ---
Date of Service August 04, 2019 Assessment & Plan (1) Sepsis: Initial concern for sepsis with abnormal vital signs. Source seems to be from cellulitis with blood cultures, two sets, showing gram-positive in chains consistent with strep species Antibiotics de-escalate to ceftriaxone Patient is recovered from her low blood pressure after volume resuscitation and is now with stable blood pressure despite having her antihypertensives held COVID-19 testing is negative (2) Acute respiratory failure with hypoxia: Patient tachypneic, hypoxic requiring increased O2 support, CPAP/BIPAP in the field, Also with fever, elevated lactate. Lungs are CTA with no rales/rhonchi/wheezes. No obvious PNA noted on CXR. COVID-19 is negative Patient has her oxygen saturations improved she is only on 1 L nasal cannula currently with oxygen saturation of 90% -Tylenol as needed for pain or fever (3) Cellulitis of both lower extremities: Patient with warmth, redness and tenderness of bilateral LE. Left leg is more erythematous than right leg right leg has chronic changes of venous stasis -Ceftriaxone Patient has baseline skin changes which could explain the portal of entry (4) Moderate COPD (chronic obstructive pulmonary disease): No wheezing at present. Patient was on a PO steroid taper prescribed outpatient. Steroids were not administered at time of intake. Patient is reinstituted on her Combivent inhaler -Continue Advair, Albuterol HFA -Supplemental O2 as needed, goal sats 88-92% (5) CKD (chronic kidney disease) stage 3, GFR 30-59 ml/min: ELevated BUN and Cr in setting of sepsis. Patient is beginning to take p.o. intake -Continue IVF for another 24 hours Continue to hold Lasix and Spironolactone -Renal dosing where needed (6) Hypothyroidism: Chronic remains on Synthroid (7) GERD (gastroesophageal reflux disease): Chronic Omeprazole (8) Chronic a-fib: V-paced at 71bpm, anticoagulated with Coumadin, supra-therapeutic INR at 5.7. No active bleeding noted -Coagulopathy secondary to Coumadin use, continue to hold Coumadin -Repeat INR daily no active signs of bleeding if such would administer vitamin K (9) HTN (hypertension): Stable -Continue metoprolol -Monitor (10) Dementia: Chronic -Contiinue Aricept Admission and Anticipated Discharge Date Admission Date: Patient has improved medically will transfer out of telemetry unit to the medical floor Subjective this pt is doing better she is pleasantly confused, she has no focal complaints but still with left leg redness and strep species in blood cultures Review of Systems Review of Systems: Mild distress and fatigue no headache, blurry or double vision no speech or swallowing issues no chest pain, pressure or palpitations no shortness of breath, cough or wheezes no abdominal pain, nausea or vomiting, diarrhea or constipation no dysuria, hematuria or frequency no focal joint pain no back pain, CVA tenderness or radicular pain no bruising, bleeding does have redness to her left lower leg no focal signs of weakness or numbness or altered sensation Patient is obviously demented and only oriented to person Physical Exam Physical Exam: The patient appeared well nourished and normally developed. Vital signs as documented. Head exam is unremarkable. No scleral icterus Neck is without JVD, thyromegaly, or carotid bruits. Lungs are clear to auscultation and percussion. Cardiac exam, Rhythm is regular.. No murmurs, rubs or gallops. Abdominal exam reveals normal bowel sounds, soft non tender, no mass erythema to the left leg bilateral changes of chronic venous stasis Neurologic exam is alert and oriented x1, no focal loss of strength or sensation Skin is with exception of area of cellulitis and venous stasis changes, skin is otherwise unremarkable Results & Data Results & Data ([facility]) Vital Signs (Past 12 Hours) Vital Signs Temp Pulse Resp BP BP Pulse Ox 08/04/19 11:00 98.6 F 70 22 118/60 98 08/04/19 07:00 98.8 F 74 28 H 136/58 L 96 08/04/19 04:00 98.1 F 93 H 18 111/74 97 PG Care Time/CCT Total # of Minutes Spent Total Time Spent with Patient: Total time spent is greater than 50% in coordination of care (as documented) at patient's floor/unit and/or counseling patient: Coding Level of Care Code 43727 Subseq Hosp Care Lvl 3 Diagnoses Sepsis A41.9 Sepsis type: sepsis due to unspecified organism Sepsis acute organ dysfunction status: unspecified Acute respiratory failure with hypoxia J96.01 Cellulitis of both lower extremities L03.115; L03.116 Moderate COPD (chronic obstructive pulmonary disease) J44.9 CKD (chronic kidney disease) stage 3, GFR 30-59 ml/min N18.3 Hypothyroidism E03.9 Hypothyroidism type: unspecified GERD (gastroesophageal reflux disease) K21.9 Esophagitis presence: esophagitis presence not specified Chronic a-fib I48.2 HTN (hypertension) I10 Hypertension type: essential hypertension Dementia F03.90 (1) Sepsis Sepsis type: sepsis due to unspecified organism Sepsis acute organ dysfunction status: unspecified Qualified Code(s): A41.9 - Sepsis, unspecified organism (2) Hypothyroidism Hypothyroidism type: unspecified Qualified Code(s): E03.9 - Hypothyroidism, unspecified (3) GERD (gastroesophageal reflux disease) Esophagitis presence: esophagitis presence not specified Qualified Code(s): K21.9 - Gastro-esophageal reflux disease without esophagitis (4) HTN (hypertension) Hypertension type: essential hypertension Qualified Code(s): I10 - Essential (primary) hypertension
[2019-08-04] MEDS: ALBUT/IPRATROP 3MG/0.5MG NEB 3 ML VIAL INH SCH ×2 (15:27→18:58)
[2019-08-04] MEDS: MELATONIN 3 MG TAB PO SCH (20:32)
[2019-08-04] MEDS: MIRTAZAPINE TAB 15 MG TAB PO SCH (20:32)
[2019-08-04] MEDS: DONEPEZIL HCL 10 MG TAB PO SCH (20:33)
[2019-08-04] MEDS: ACETAMINOPHEN 500 MG TAB PO SCH (20:33)
[2019-08-05] MEDS: SODIUM CHLORIDE 0.9% 1000ML 1,000 ML IV SCH ×2 (04:00→14:24)
[2019-08-05] MEDS: LEVOTHYROXINE SODIUM 50 MCG TABLET PO SCH (05:11)
[2019-08-05 05:58] LABS: INR 2.4 (0.9-1.1); Prothrombin Time 24.1 Seconds (9.0-12.0)
[2019-08-05 06:12] LABS: BUN Creatinine Ratio 28.5 (10-20); Calcium 7.8 mg/dl (8.5-10.1); Creatinine Clr Calc Pharmacy 21.6 ml/min; Est GFR (African American) 32.7; Est GFR (Non-African American) 28.2; Potassium 4.1 mmol/L (3.5-5.1)
[2019-08-05] MEDS: ALBUT/IPRATROP 3MG/0.5MG NEB 3 ML VIAL INH SCH ×4 (07:17→19:35)
[2019-08-05] MEDS: ASPIRIN 81 MG ECTAB PO SCH (10:14)
[2019-08-05] MEDS: CALCITRIOL 0.25 MCG CAPSULE PO SCH (10:14)
[2019-08-05] MEDS: allopurinoL 100 MG TAB PO SCH (10:14)
[2019-08-05] MEDS: DOCUSATE SODIUM 100 MG CAP PO SCH ×2 (10:15→20:54)
[2019-08-05] MEDS: FLUTICASONE/VILANTEROL 100/25MCG 14 PUFFS/INHALER INH SCH (10:15)
[2019-08-05] MEDS: PANTOprazole 40 MG TAB PO SCH ×2 (10:15→20:47)
[2019-08-05] MEDS: cefTRIAXone SODIUM 2,000 MG in DEXTROSE 5% 50 ML IV SCH (10:16)
[2019-08-05] MEDS: ACETAMINOPHEN 500 MG TAB PO SCH ×2 (10:17→20:54)
[2019-08-05] MEDS: LIDOCAINE 5% 1 PATCH TD SCH (10:19)
[2019-08-05] MEDS: WARFARIN SOD 2.5 MG TAB PO SCH (16:18)
--- NOTE | 2019-08-05 17:33 | Hospitalist Progress Note ---
Date of Service August 05, 2019 Assessment & Plan (1) Sepsis: Initial concern for sepsis with abnormal vital signs. Source seems to be from cellulitis with blood cultures, two sets, showing gram-positive in chains consistent with strep species Antibiotics de-escalate to ceftriaxone, awaiting final sensitivities Patient is recovered from her low blood pressure after volume resuscitation and is now with stable blood pressure despite having her antihypertensives held COVID-19 testing is negative (2) Acute respiratory failure with hypoxia: Patient tachypneic, hypoxic requiring increased O2 support, CPAP/BIPAP in the field, Also with fever, elevated lactate. Lungs are CTA with no rales/rhonchi/wheezes. No obvious PNA noted on CXR. COVID-19 is negative Patient has her oxygen saturations improved she is on room air with good oxygen saturations -Tylenol as needed for pain or fever (3) Cellulitis of both lower extremities: Patient with warmth, redness and tenderness of bilateral LE. Left leg is more erythematous than right leg. right leg has chronic changes of venous stasis -Ceftriaxone Patient has baseline skin changes which could explain the portal of entry (4) Moderate COPD (chronic obstructive pulmonary disease): No wheezing at present. Patient was on a PO steroid taper prescribed outpatient. Steroids were not administered at time of intake. Patient is reinstituted on her Combivent inhaler -Continue Advair, Albuterol HFA (5) CKD (chronic kidney disease) stage 3, GFR 30-59 ml/min: ELevated BUN and Cr in setting of sepsis. Patient is beginning to take p.o. intake -Continue IVF for another 24 hours Continue to hold Lasix and Spironolactone -Renal dosing where needed (6) Hypothyroidism: Chronic remains on Synthroid (7) GERD (gastroesophageal reflux disease): Chronic Omeprazole (8) Chronic a-fib: V-paced at 71bpm, anticoagulated with Coumadin, supra-therapeutic INR at 5.7. No active bleeding noted -Coagulopathy secondary to Coumadin use, INR is therapeutic (9) HTN (hypertension): Stable -Continue metoprolol -Monitor (10) Dementia: Chronic -Contiinue Aricept Admission and Anticipated Discharge Date Admission Date: August 03, 2019 Subjective Patient is much more improved awake and alert has no focal complaints or problems is still slightly weak Review of Systems Review of Systems: Mild distress and fatigue no headache, blurry or double vision no speech or swallowing issues no chest pain, pressure or palpitations no shortness of breath, cough or wheezes no abdominal pain, nausea or vomiting, diarrhea or constipation no dysuria, hematuria or frequency no focal joint pain or swelling no back pain, CVA tenderness or radicular pain no bruising, bleeding or rashes no focal signs of weakness or numbness or altered sensation no complaints or anxiety or depression Physical Exam Physical Exam: The patient appeared well nourished and normally developed. Vital signs as documented. Head exam is unremarkable. No scleral icterus Neck is without JVD, thyromegaly, or carotid bruits. Lungs are clear to auscultation Cardiac exam, Rhythm is regular.. Systolic systolic ejection murmurs heard right Abdominal exam reveals normal bowel sounds, soft non tender, no masses Extremities are nonedematous and both pedal pulses are normal. Neurologic exam is alert and oriented, no focal loss of strength or sensation Skin is with redness to the left lower extremity which is receding some changes of chronic venous stasis on the right of what Psychologically is without concerns for anxiety or depression Results & Data Results & Data ([facility]) Vital Signs (Past 12 Hours) Vital Signs Temp Pulse Resp BP Pulse Ox 08/05/19 15:55 98.1 F 72 16 128/71 98 08/05/19 15:24 70 18 96 08/05/19 11:03 69 18 96 08/05/19 07:32 97.7 F 69 16 163/76 H 97 08/05/19 07:17 70 16 97 PG Care Time/CCT Total # of Minutes Spent Total Time Spent with Patient: Total time spent is greater than 50% in coordination of care (as documented) at patient's floor/unit and/or counseling patient: Coding Level of Care Code 21614 Subseq Hosp Care Lvl 2 Diagnoses Sepsis A41.9 Sepsis type: sepsis due to unspecified organism Sepsis acute organ dysfunction status: unspecified Acute respiratory failure with hypoxia J96.01 Cellulitis of both lower extremities L03.115; L03.116 Moderate COPD (chronic obstructive pulmonary disease) J44.9 CKD (chronic kidney disease) stage 3, GFR 30-59 ml/min N18.3 Hypothyroidism E03.9 Hypothyroidism type: unspecified GERD (gastroesophageal reflux disease) K21.9 Esophagitis presence: esophagitis presence not specified Chronic a-fib I48.2 HTN (hypertension) I10 Hypertension type: essential hypertension Dementia F03.90 (1) Sepsis Sepsis type: sepsis due to unspecified organism Sepsis acute organ dysfunction status: unspecified Qualified Code(s): A41.9 - Sepsis, unspecified organism (2) Hypothyroidism Hypothyroidism type: unspecified Qualified Code(s): E03.9 - Hypothyroidism, unspecified (3) GERD (gastroesophageal reflux disease) Esophagitis presence: esophagitis presence not specified Qualified Code(s): K21.9 - Gastro-esophageal reflux disease without esophagitis (4) HTN (hypertension) Hypertension type: essential hypertension Qualified Code(s): I10 - Essential (primary) hypertension
[2019-08-05] MEDS: MELATONIN 3 MG TAB PO SCH (20:47)
[2019-08-05] MEDS: DONEPEZIL HCL 10 MG TAB PO SCH (20:48)
[2019-08-05] MEDS: MIRTAZAPINE TAB 15 MG TAB PO SCH (20:48)
[2019-08-06] MEDS: SODIUM CHLORIDE 0.9% 1000ML 1,000 ML IV SCH ×2 (00:12→10:45)
[2019-08-06] MEDS: LEVOTHYROXINE SODIUM 50 MCG TABLET PO SCH (06:03)
[2019-08-06] MEDS: ALBUT/IPRATROP 3MG/0.5MG NEB 3 ML VIAL INH SCH ×4 (06:57→19:01)
[2019-08-06 07:04] LABS: Hematocrit (blood only) 37.5 % (37-47); Hemoglobin 11.8 g/dL (12.0-16.0); Mean Corpuscular Hemoglobin 26.9 pg (25-34); Mean Corpuscular Hgb Conc 31.5 g/dL (32-36); Mean Corpuscular Volume 85.6 fL (80-100); Mean Platelet Volume 11.2 fL (7.4-10.4); Platelet Count 117 K/uL (130-400); RDW Coefficient of Variation 16.9 % (11.5-14.5); RDW Standard Deviation 52.6 fL (36.4-46.3); Red Blood Count 4.38 M/uL (4.2-5.4); White Blood Count 13.07 K/uL (4.8-10.8)
[2019-08-06 07:16] LABS: INR 2.3 (0.9-1.1); Prothrombin Time 23.6 Seconds (9.0-12.0)
[2019-08-06 07:28] LABS: BUN Creatinine Ratio 28.5 (10-20); Calcium 8.3 mg/dl (8.5-10.1); Creatinine Clr Calc Pharmacy 24.5 ml/min; Est GFR (Non-African American) 32.8; Potassium 4.6 mmol/L (3.5-5.1)
[2019-08-06] MEDS: ASPIRIN 81 MG ECTAB PO SCH (08:38)
[2019-08-06] MEDS: PANTOprazole 40 MG TAB PO SCH ×2 (08:38→20:59)
[2019-08-06] MEDS: FLUTICASONE/VILANTEROL 100/25MCG 14 PUFFS/INHALER INH SCH (08:38)
[2019-08-06] MEDS: CALCITRIOL 0.25 MCG CAPSULE PO SCH (08:39)
[2019-08-06] MEDS: DOCUSATE SODIUM 100 MG CAP PO SCH ×2 (08:40→20:59)
[2019-08-06] MEDS: LIDOCAINE 5% 1 PATCH TD SCH (08:42)
[2019-08-06] MEDS: cefTRIAXone SODIUM 2,000 MG in DEXTROSE 5% 50 ML IV SCH (08:45)
[2019-08-06] MEDS: allopurinoL 100 MG TAB PO SCH (08:48)
[2019-08-06] MEDS: ACETAMINOPHEN 500 MG TAB PO SCH ×2 (08:50→20:59)
[2019-08-06] MEDS: TRAMADOL HCL 50 MG TABLET PO PRN (15:56)
[2019-08-06] MEDS: WARFARIN SOD 2.5 MG TAB PO SCH (15:56)
--- NOTE | 2019-08-06 16:28 | Hospitalist Progress Note ---
Date of Service August 06, 2019 Assessment & Plan (1) Sepsis: Initial concern for sepsis with abnormal vital signs. Source seems to be from cellulitis with blood cultures, two sets, showing group G beta strep Antibiotics de-escalate to ceftriaxone, bacterial cultures show that it is sensitive Patient is recovered from her low blood pressure after volume resuscitation and is now with stable blood pressure despite having her antihypertensives held COVID-19 testing is negative (2) Acute respiratory failure with hypoxia: Patient tachypneic, hypoxic requiring increased O2 support, CPAP/BIPAP in the field, Also with fever, elevated lactate. Lungs are CTA with no rales/rhonchi/wheezes. No obvious PNA noted on CXR. COVID-19 is negative Patient has her oxygen saturations improved she is on room air with good oxygen saturations -Tylenol as needed for pain or fever (3) Cellulitis of both lower extremities: Patient with warmth, redness and tenderness of bilateral LE. Left leg is more erythematous than right leg. right leg has chronic changes of venous stasis - continue Ceftriaxone Patient has baseline skin changes which could explain the portal of entry consider changing to oral antibiotics if skin continues to improve, WBC up to 13k today (4) Moderate COPD (chronic obstructive pulmonary disease): No wheezing at present. Patient was on a PO steroid taper prescribed outpatient. Steroids were not administered at time of intake. Patient is reinstituted on her Combivent inhaler -Continue Advair, Albuterol HFA (5) CKD (chronic kidney disease) stage 3, GFR 30-59 ml/min: ELevated BUN and Cr in setting of sepsis. Patient is beginning to take p.o. intake - stop fluids today Continue to hold Lasix and Spironolactone -Renal dosing where needed (6) Hypothyroidism: Chronic remains on Synthroid (7) GERD (gastroesophageal reflux disease): Chronic Omeprazole (8) Chronic a-fib: V-paced anticoagulated with Coumadin, supra-therapeutic INR at 5.7. No active bleeding noted -Coagulopathy secondary to Coumadin use, INR is therapeutic now, down to 2.3 (9) HTN (hypertension): Stable -Continue metoprolol -Monitor (10) Dementia: Chronic -Contiinue Aricept Admission and Anticipated Discharge Date Admission Date: August 03, 2019 Subjective patient sleeping, woke easily denied any severe pain in legs, no chest pain, no dyspnea, no fever/chills she is eating well vitals stable, WBC up to 13k, Hb 11.8, Cr down to 1.44, HCO3 down to 16 blood cultures with Group G beta strep, sensitive to Rocephin Review of Systems Review of Systems: All systems reviewed & are unremarkable except as noted in HPI & below Physical Exam Constitutional: WD/WN, vitals as above + thin Eyes: PERRL, conjunctivae normal, anicteric sclerae ENMT: external ear and nose normal, oropharynx normal Neck: trachea midline, no thyromegaly Respiratory: normal respiratory effort, lungs clear to auscultation Cardiovascular: RRR, no murmur, no edema Gastrointestinal (Abdomen): normal bowel sounds, soft, nontender, no hepatosplenomegaly Musculoskeletal: no cyanosis or clubbing, extremities motor strength 5/5 Skin: + rash (dark, erythematous rash bilateral lower extremities, not tender, warm) and + erythema Neurologic: patellar DTR's 2+ bilat, sensation intact and PERRL, EOMI, accommodation nl, no face palsy, no dysarthria Psychiatric: A+Ox3, euthymic affect Lymphatic: no cervical or axillary lymphadenopathy Results & Data Results & Data ([facility]) Vital Signs (Past 12 Hours) Vital Signs Temp Pulse Resp BP Pulse Ox 08/06/19 15:37 36.9 C 72 16 119/66 92 08/06/19 15:11 70 16 95 08/06/19 11:01 71 18 97 08/06/19 08:01 36.5 C 72 16 140/80 96 08/06/19 07:00 86 16 91 Laboratory Results Laboratory Results - last 24 hr 08/06/19 08/06/19 08/06/19 06:47 06:47 06:47 WBC 13.07 H RBC 4.38 Hgb 11.8 L Hct 37.5 MCV 85.6 MCH 26.9 MCHC 31.5 L RDW Std Deviation 52.6 H RDW Coeff of Rashad 16.9 H Plt Count 117 L MPV 11.2 H PT 23.6 H INR 2.3 H Sodium 138 Potassium 4.6 Chloride 110 H Carbon Dioxide 16 L Anion Gap 12.0 H BUN 41 H Creatinine 1.44 H Est Cr Clr Drug Dosing 24.5 Est GFR ( Amer) 38.0 Est GFR (Non-Af Amer) 32.8 BUN/Creatinine Ratio 28.5 H Glucose 88 Calcium 8.3 L Specimen Hemolysis Microbiology 08/03/19 01:41 Blood Aerobic Blood Culture - Final Group G Beta Strep 08/03/19 01:41 Blood Anaerobic Blood Culture - Final Group G Beta Strep 08/03/19 01:22 Blood Aerobic Blood Culture - Final Group G Beta Strep 08/03/19 01:22 Blood Anaerobic Blood Culture - Final Group G Beta Strep Medications Administered Current Inpatient Medications Acetaminophen (Tylenol) 1,000 mg PO BID [facility] Stop: 09/03/19 20:59 Last Admin: 08/06/19 20:59 Dose: 1,000 mg Documented by: Albuterol (Duoneb) 3 ml INH QIDR [facility] Stop: 09/03/19 14:59 Last Admin: 08/06/19 19:01 Dose: 3 ml Documented by: Allopurinol (Zyloprim) 50 mg PO QAM [facility] Stop: 09/02/19 08:59 Last Admin: 08/06/19 08:48 Dose: 50 mg Documented by: Aspirin (Ecotrin Ectab) 81 mg PO QAM [facility] Stop: 09/02/19 08:59 Last Admin: 08/06/19 08:38 Dose: 81 mg Documented by: Calcitriol (Rocaltrol) 0.25 mcg PO QAM [facility] Stop: 09/02/19 08:59 Last Admin: 08/06/19 08:39 Dose: 0.25 mcg Documented by: Docusate Sodium (Colace) 100 mg PO BID [facility] Stop: 09/02/19 08:59 Last Admin: 08/06/19 20:59 Dose: 100 mg Documented by: Donepezil HCl (Aricept) 10 mg PO HS [facility] Stop: 09/02/19 20:59 Last Admin: 08/06/19 20:59 Dose: 10 mg Documented by: Fluticasone/Vilanterol (Breo Ellipta 100/25 Mcg Inh) 1 puffs INH DAILY [facility] Stop: 09/02/19 08:59 Last Admin: 08/06/19 08:38 Dose: 1 puffs Documented by: Ceftriaxone Sodium 2,000 mg/ (Dextrose) 70 mls @ 100 mls/hr IV DAILY [facility]; Protocol Stop: 08/18/19 08:59 Last Infusion: 08/06/19 09:34 Dose: Infused Documented by: Levothyroxine Sodium (Synthroid) 50 mcg PO DAILYBB [facility] Stop: 09/02/19 06:29 Last Admin: 08/06/19 06:03 Dose: 50 mcg Documented by: Lidocaine (Lidoderm 5%) 1 patch TD QAM [facility] Stop: 09/02/19 08:59 Last Admin: 08/06/19 08:42 Dose: 1 patch Documented by: Melatonin (Melatonin) 3 mg PO HS [facility] Stop: 09/02/19 20:59 Last Admin: 08/06/19 20:59 Dose: 3 mg Documented by: Mirtazapine (Remeron) 15 mg PO QPM [facility] Stop: 09/02/19 20:59 Last Admin: 08/06/19 20:59 Dose: 15 mg Documented by: Miscellaneous (Remove Lidoderm Patch) 1 ea N/A DAILY@2100 [facility] Stop: 09/02/19 20:59 Last Admin: 08/06/19 20:59 Dose: 1 ea Documented by: Ondansetron HCl (Zofran) 4 mg IV Q6H PRN PRN Reason: Nausea Stop: 09/02/19 03:07 Last Admin: 08/03/19 12:46 Dose: 4 mg Documented by: Pantoprazole Sodium (Protonix) 40 mg PO BID [facility] Stop: 09/02/19 08:59 Last Admin: 08/06/19 20:59 Dose: 40 mg Documented by: Tramadol HCl (Ultram) 50 mg PO Q6 PRN PRN Reason: Pain Stop: 09/02/19 06:18 Last Admin: 08/06/19 15:56 Dose: 50 mg Documented by: Warfarin Sodium (Coumadin) 2.5 mg PO DAILY@1600 [facility] Stop: 09/04/19 15:59 Last Admin: 08/06/19 15:56 Dose: 2.5 mg Documented by: PG Care Time/CCT Total # of Minutes Spent Total Time Spent with Patient: Total time spent is greater than 50% in coordination of care (as documented) at patient's floor/unit and/or counseling patient: Coding Level of Care Code 26208 Subseq Hosp Care Lvl 3 Diagnoses Sepsis A41.9 Sepsis acute organ dysfunction status: unspecified Sepsis type: sepsis due to unspecified organism Acute respiratory failure with hypoxia J96.01 Cellulitis of both lower extremities L03.115; L03.116 Moderate COPD (chronic obstructive pulmonary disease) J44.9 CKD (chronic kidney disease) stage 3, GFR 30-59 ml/min N18.3 Hypothyroidism E03.9 Hypothyroidism type: unspecified GERD (gastroesophageal reflux disease) K21.9 Esophagitis presence: esophagitis presence not specified Chronic a-fib I48.2 HTN (hypertension) I10 Hypertension type: essential hypertension Dementia F03.90 (1) Hypothyroidism Hypothyroidism type: unspecified Qualified Code(s): E03.9 - Hypothyroidism, unspecified (2) Sepsis Sepsis acute organ dysfunction status: unspecified Sepsis type: sepsis due to unspecified organism Qualified Code(s): A41.9 - Sepsis, unspecified organism (3) GERD (gastroesophageal reflux disease) Esophagitis presence: esophagitis presence not specified Qualified Code(s): K21.9 - Gastro-esophageal reflux disease without esophagitis (4) HTN (hypertension) Hypertension type: essential hypertension Qualified Code(s): I10 - Essential (primary) hypertension
[2019-08-06] MEDS: MELATONIN 3 MG TAB PO SCH (20:59)
[2019-08-06] MEDS: MIRTAZAPINE TAB 15 MG TAB PO SCH (20:59)
[2019-08-06] MEDS: DONEPEZIL HCL 10 MG TAB PO SCH (20:59)
[2019-08-07] MEDS: LEVOTHYROXINE SODIUM 50 MCG TABLET PO SCH (05:30)
[2019-08-07 06:13] LABS: INR 4.2 (0.9-1.1); Prothrombin Time 41.3 Seconds (9.0-12.0)
[2019-08-07 06:18] LABS: BUN Creatinine Ratio 28.7 (10-20); Calcium 8.5 mg/dl (8.5-10.1); Creatinine Clr Calc Pharmacy 24.7 ml/min; Est GFR (African American) 38.3; Est GFR (Non-African American) 33.1; Potassium 4.2 mmol/L (3.5-5.1)
[2019-08-07] MEDS ORDERED: SODIUM CHLORIDE 0.9% 500 ML IV SCH (06:30)
[2019-08-07] MEDS: ALBUT/IPRATROP 3MG/0.5MG NEB 3 ML VIAL INH SCH ×2 (06:58→11:07)
[2019-08-07] MEDS ORDERED: AMOXICILLIN/CLAVULANATE 500 MG TAB PO SCH (08:15)
[2019-08-07] MEDS: FLUTICASONE/VILANTEROL 100/25MCG 14 PUFFS/INHALER INH SCH (08:27)
[2019-08-07] MEDS: DOCUSATE SODIUM 100 MG CAP PO SCH (08:29)
[2019-08-07] MEDS: ASPIRIN 81 MG ECTAB PO SCH (08:29)
[2019-08-07] MEDS: CALCITRIOL 0.25 MCG CAPSULE PO SCH (08:30)
[2019-08-07] MEDS: PANTOprazole 40 MG TAB PO SCH (08:30)
[2019-08-07] MEDS: allopurinoL 100 MG TAB PO SCH (08:30)
[2019-08-07] MEDS: ACETAMINOPHEN 500 MG TAB PO SCH (08:30)
[2019-08-07] MEDS: LIDOCAINE 5% 1 PATCH TD SCH (08:31)
--- NOTE | 2019-08-07 11:51 | Discharge Summary ---
Date of Service August 07, 2019 Admission HPI Per Admitting Provider Ana Rosa Wolf is an 84yo C female presenting from [facility] with fever, SOB and Hypoxia. Patient was seen in the ER on 07/31/19 with complaint of SOB and feeling cold. She was afebrile at that time, tachypneic and saturating 99% on her usual 2L NC. Lungs noted to be clear throughout. She was discharged to [facility] in stable condition. She was recently started on a Prednisone taper. This evening she developed a fever and became tachypneic and hypoxic to 86% while on her usual 2L NC. She vomited around 22:30 at [facility] after which she became more short of breath. EMS was called and the patient was placed on CPAP in the field for hypoxia and increased work of breathing. When she arrived to the ER she was found to be febrile to 39.4, tachypneic at 29bpm. She was transitioned to BiPAP 10/5, 28% FiO2. On exam she is unable to provide any history. She says that she "feels sick" but otherwise does not offer any history. ER Course: Tylenol, Levaquin, Zofran, Zosyn, NSS x 1L, Vancomycin x 1 gm Principal Diagnosis Bilateral lower extremity cellulitis Discharge Exam Constitutional WD/WN, vitals as above + thin Eyes PERRL, conjunctivae normal, anicteric sclerae ENMT external ear and nose normal, oropharynx normal Neck trachea midline, no thyromegaly Respiratory normal respiratory effort, lungs clear to auscultation Cardiovascular RRR, no murmur, no edema Gastrointestinal (Abdomen) normal bowel sounds, soft, nontender, no hepatosplenomegaly Musculoskeletal no cyanosis or clubbing, extremities motor strength 5/5 Skin + rash (dark, erythematous rash bilateral lower extremities, not tender, warm) and + erythema Neurologic patellar DTR's 2+ bilat, sensation intact and PERRL, EOMI, accommodation nl, no face palsy, no dysarthria Psychiatric A+Ox3, euthymic affect Lymphatic no cervical or axillary lymphadenopathy Discharge Data Allergies Allergy/AdvReac Type Severity Reaction Status Date / Time morphine Allergy Intermediate . Unverified 08/03/19 01:24 oxycodone AdvReac Intermediate ALTERED Verified 08/03/19 01:24 MENTAL STATUS, N/V alcohol AdvReac Mild PASSES OUT Verified 08/03/19 01:24 WITH A SIP codeine AdvReac Mild N/V - Verified 08/03/19 01:24 RECEIVED MORPHINE ON PRIOR ADMIT W/O RXN Consultations 08/03/19 02:26 ED Decision to Admit Stat Hospital Course (1) Sepsis: Initial concern for sepsis with abnormal vital signs. Source seems to be from cellulitis with blood cultures, two sets, showing group G beta strep Antibiotics de-escalate to ceftriaxone, bacterial cultures show that it is sens itive Patient is recovered from her low blood pressure after volume resuscitation and is now with stable blood pressure despite having her antihypertensives held COVID-19 testing is negative transition to Augmentin BID on discharge for total of 14 days treatment (2) Acute respiratory failure with hypoxia: Patient tachypneic, hypoxic requiring increased O2 support, CPAP/BIPAP in the field, Also with fever, elevated lactate. Lungs are CTA with no rales/rhonchi/wheezes. No obvious PNA noted on CXR. COVID-19 is negative Patient has her oxygen saturations improved she is on room air with good oxygen saturations -Tylenol as needed for pain or fever lungs clear on day of discharge, breathing easily on exertion (3) Cellulitis of both lower extremities: Patient with warmth, redness and tenderness of bilateral LE. Left leg is more erythematous than right leg. right leg has chronic changes of venous stasis - treated with Ceftriaxone while admitted Patient has baseline skin changes which could explain the portal of entry change to Augmentin on d/c, 10 more days of treatment (4) Moderate COPD (chronic obstructive pulmonary disease): No wheezing at present. Patient was on a PO steroid taper prescribed outpatient. Steroids were not administered at time of intake. Patient is reinstituted on her Combivent inhaler -Continue Advair, Albuterol HFA (5) CKD (chronic kidney disease) stage 3, GFR 30-59 ml/min: ELevated BUN and Cr in setting of sepsis. Patient is beginning to take p.o. intake - stop fluids today resume Diuretics on discharge (6) Hypothyroidism: Chronic remains on Synthroid (7) GERD (gastroesophageal reflux disease): Chronic Omeprazole (8) Chronic a-fib: V-paced anticoagulated with Coumadin, supra-therapeutic INR at 5.7 on admission. No active bleeding noted -Coagulopathy secondary to Coumadin use, INR was down to 2.3, patient received Warfarin 2.5mg, INR up to 4.3 recommend holding Warfarin for 2 days, consider resuming at 2mg daily (9) HTN (hypertension): Stable -Continue metoprolol -Monitor (10) Dementia: Chronic -Contiinue Aricept Total Time Total Time Spent Total Time Spent (In Minutes): 32 minutes Total Time Includes: Examination of the Patient, Discharge Planning and Medication Reconciliation Discharge Plan Discharge Items Patient Disposition: Transfer Shelter Fac Reason For Visit: SOB, FEVER Discharge Diagnosis: Bilateral lower extremity cellulitis Condition on Discharge: Good Goals: improve strength and mobility complete course of Augmentin Activity: Resume your previous activity Weightbearing: Full weightbearing Non-emergency contact: Primary Care Provider Call non-emergency contact if: you have any medication questions Follow-up/Referrals: Car Zimmerman [Primary Care Provider] - (within one week) Diet: Heart Healthy Addtl Attending Provider Instructions: Medications: - AMOXICILLIN: complete 10 more days to treat cellulitis and the Group G beta strep bacteremia - WARFARIN: INR is 4.2 today, please hold this for now, suggest resuming at 2mg daily, perhaps Bilateral lower leg cellulitis, Group G beta strep bacteremia responded well to Rocephin IV, no fever, WBC stable improved strength, breathing much improved will transition to Augmentin since the cultures show sensitivity, complete 10 more days Chronic warfarin: INR has been up and down, today it is 4.2 please hold Warfarin today and likely tomorrow consider resuming at 2mg daily provider at [facility] can manage Pending Studies at Discharge: No Stand-Alone Forms: My [facility] Skilled Items Patient informed of condition?: Yes DNR: Yes Discharge Level of Care: Skilled Communicable Disease: No Discharge Prognosis: Stable Lines: None Urinary Catheter: No Medications and DC Order Prescriptions: New amoxicillin-pot clavulanate 500-125 mg Tablet 1 tab PO BIDM 10 Days Qty: 20 RF: 0 Continued calcitriol 0.25 mcg Capsule 0.25 mcg PO QAM RF: 0 furosemide 20 mg Tablet 30 mg PO DAILY RF: 0 ipratropium-albuterol 0.5 mg-3 mg(2.5 mg base)/3 mL solution for nebulization 3 ml NEB .EVERY 2 HOURS PRN (Reason: Shortness Of Breath Or Wheezing) RF: 0 melatonin 3 mg Tablet 3 mg PO HS RF: 0 ondansetron HCl 4 mg tablet 4 mg PO Q8 PRN (Reason: Nausea And Vomiting) RF: 0 acetaminophen 325 mg Tablet 650 mg PO Q12 MDD 3gm PRN (Reason: Mild Pain (Scale Score 1-4)) RF: 0 acetaminophen 325 mg Tablet 650 mg PO Q12 MDD 3gm PRN (Reason: temp>100) RF: 0 ipratropium-albuterol 0.5 mg-3 mg(2.5 mg base)/3 mL solution for nebulization 3 ml INHALATION QID RF: 0 ascorbic acid (vitamin C) 250 mg Tablet 250 mg PO DAILY RF: 0 nitroglycerin [Nitrostat] 0.4 mg Tablet, Sublingual 0.4 mg sublingual UD PRN (Reason: Chest Pain) RF: 0 prednisone 10 mg Tablet 10 mg PO UD RF: 0 fluticasone propion-salmeterol [Advair Diskus] 250-50 mcg/dose blister with device 1 inh INHALATION Q12 RF: 0 donepezil 10 mg tablet 10 mg PO HS RF: 0 allopurinol 100 mg tablet 50 mg PO QAM RF: 0 aspirin 81 mg Tablet,Delayed Release (Dr/Ec) 81 mg PO QAM RF: 0 furosemide 40 mg tablet 40 mg PO QAM RF: 0 lidocaine 4 % Adhesive Patch,Medicated 1 patch TOPICAL QAM RF: 0 levothyroxine 50 mcg tablet 50 mcg PO QAM RF: 0 docusate sodium 100 mg Capsule 100 mg PO BID RF: 0 metoprolol tartrate 25 mg tablet 12.5 mg PO BID RF: 0 spironolactone 25 mg tablet 12.5 mg PO QAM RF: 0 omeprazole 20 mg capsule,delayed release(DR/EC) 20 mg PO BID RF: 0 mirtazapine 15 mg tablet 15 mg PO QPM RF: 0 calcium carbonate-vitamin D3 [Oyster Shell Calcium-Vit D3] 500 mg(1,250mg) - 200 unit Tablet 1 tab PO QAM RF: 0 acetaminophen [Tylenol Extra Strength] 500 mg Tablet 1,000 mg PO BID RF: 0 tramadol 50 mg tablet 50 mg PO Q6 PRN (Reason: Pain) Qty: 7 RF: 0 Discontinued warfarin 5 mg Tablet 5 mg PO QPM RF: 0 Discharge Orders: Discharge Order (Routine); Ordered 08/07/19 Ordered By: Sincere Bourgeois/Other Patient Handouts: Amoxicillin Clavulanic Acid tablets Admission Data Admit Date/Time: 08/03/19 03:09 Attending Provider: Sincere Benedict Admit Provider: Joann Iglesias Primary Care Provider: Car Zimmerman Other Providers: Joann Iglesias Other Interventions: Discharge Summary Assessment (RN) Last Done: 08/07/19 13:45 DC Date/Time DO NOT enter until pt leaves facility: 08/07/19 14:42 Coding Level of Care Code D/C Day Management >30 mins Diagnoses Sepsis A41.9 Sepsis acute organ dysfunction status: unspecified Sepsis type: sepsis due to unspecified organism Acute respiratory failure with hypoxia J96.01 Cellulitis of both lower extremities L03.115; L03.116 Moderate COPD (chronic obstructive pulmonary disease) J44.9 CKD (chronic kidney disease) stage 3, GFR 30-59 ml/min N18.3 Hypothyroidism E03.9 Hypothyroidism type: unspecified GERD (gastroesophageal reflux disease) K21.9 Esophagitis presence: esophagitis presence not specified Chronic a-fib I48.2 HTN (hypertension) I10 Hypertension type: essential hypertension Dementia F03.90
== END 2019-08-07 14:42 | DRG 871 ==
LOC: ED 00:57 → SUATTDRO 03:09 → 2S 03:09 → 2N 08-04 14:16 → 3E 08-04 21:15